=== PATIENT | male | born 1960 | race Caucasian/White ===

== ENCOUNTER 2022-02-01 07:43 | Outpatient (REF) | payer BC, SELFPAY ==
[2022-02-01 11:05] LABS: Hematocrit 38.2 % (42.0-52.0); Hemoglobin 12.4 g/dl (14.0-18.0); Mean Corpuscular HGB Conc 32.5 g/dl (31.0-36.0); Mean Corpuscular Hemoglobin 28.6 pg (27.0-33.0); Mean Corpuscular Volume 88.2 fL (80.0-98.0); Mean Platelet Volume 9.8 fL (9.4-12.4); Platelet Count 358 X10*3/uL (160-400); Red Blood Count 4.33 X10*6/uL (4.60-5.80); Red Cell Distribution Width 13.1 % (11.0-16.0); White Blood Count 9.8 X10*3/uL (4.8-10.8)
[2022-02-01 11:12] LABS: Estimated Average Glucose 134 mg/dL; Hemoglobin A1C 152.7002 umol/L; Hemoglobin A1c % 6.3 %
[2022-02-01 11:30] LABS: Alanine Aminotransferase 15 U/L (0-40); Albumin Level 4.1 g/dL (3.5-5.0); Alkaline Phosphatase 70 U/L (39-117); Anion Gap 13 (12-20); Aspartate Amino Transferase 19 U/L (5-37); Bilirubin Total 0.5 mg/dL (0.0-1.0); Blood Urea Nitrogen 13 mg/dL (9-16); Calcium 9.1 mg/dL (8.4-10.2); Carbon Dioxide 25 mmol/L (22-29); Chloride 105 mmol/L (96-108); Cholesterol 201 mg/dL; Estimated Glomerular Filt Rate > 60; Glucose Fasting 121 mg/dL (60-99); HDL Cholesterol 40 mg/dL; LDL Cholesterol Calculated 130 mg/dl; Potassium 4.5 mmol/L (3.3-5.1); Sodium 138 mmol/L (135-145); Total Protein 6.9 g/dL (6.5-8.0); Triglycerides 159 mg/dL
[2022-02-01 11:31] LABS: Creatinine Urine 85.62 mg/dL; Microalbumin Urine < 5.0 mg/L
== END 2022-02-01 07:44 | disposition home or self-care (01) ==
LOC: HO.HMGCLDS 07:43
PROVIDERS: PCP Internal Medicine; Visit Provider Internal Medicine
DX: E11.9 Type 2 diabetes mellitus without complications (principal); E78.5 Hyperlipidemia, unspecified
CPT/HCPCS: 36415; 80053; 80061; 82043; 83036; 85027

== ENCOUNTER 2022-02-10 14:16 | Outpatient (REF) | payer BC, SELFPAY ==
[2022-02-10 16:57] LABS: Rheumatoid Factor < 15.0 IU/mL (<15.0); Uric Acid 5.3 mg/dL (3.4-7.0)
[2022-02-12 04:29] LABS: Lyme Abs Screen <0.90 index
[2022-02-12 14:31] LABS: Anti Nuclear Antibody Screen NEGATIVE (NEGATIVE)
== END 2022-02-10 14:17 | disposition home or self-care (01) ==
LOC: HO.HMGCLDS 14:16
PROVIDERS: Visit Provider Internal Medicine
DX: M25.50 Pain in unspecified joint (principal); E78.5 Hyperlipidemia, unspecified; E11.9 Type 2 diabetes mellitus without complications
CPT/HCPCS: 36415; 84550; 86038; 86039; 86140; 86431; 86617; 86618

== ENCOUNTER 2022-05-10 07:59 | Outpatient (REF) | payer BC, SELFPAY ==
[2022-05-10 11:19] LABS: Basophils Absolute Auto 0.1 X10*3/uL (0.0-0.2); Basophils Percent Auto 1.3 % (0-2); Eosinophils Absolute Auto 0.2 X10*3/uL (0.0-0.4); Eosinophils Percent Auto 2.2 % (0-4); Hematocrit 41.6 % (42.0-52.0); Hemoglobin 13.5 g/dl (14.0-18.0); Imm Gran Abs Auto 0.02 X10*3/uL (0.00-0.03); Imm Gran Pct Auto 0.2 % (0.0-0.4); MANUAL DIFF FLAG SCAN; Mean Corpuscular HGB Conc 32.5 g/dl (31.0-36.0); Mean Corpuscular Hemoglobin 28.9 pg (27.0-33.0); Mean Corpuscular Volume 89.1 fL (80.0-98.0); Mean Platelet Volume 10.3 fL (9.4-12.4); Monocytes Absolute Auto 0.7 X10*3/uL (0.1-1.2); Monocytes Percent Auto 6.6 % (2-11); Neutrophils Absolute Auto 2.8 x10*3/uL (2.0-8.3); Neutrophils Percent Auto 26.7 % (45-73); Platelet Count 316 X10*3/uL (160-400); Red Blood Count 4.67 X10*6/uL (4.60-5.80); Red Cell Distribution Width 13.6 % (11.0-16.0); SCAN SMEAR FLAG 1; White Blood Count 10.5 X10*3/uL (4.8-10.8)
[2022-05-10 11:24] LABS: Lymphocytes Absolute Auto 6.6 X10*3/uL (1.2-4.9)
[2022-05-10 11:26] LABS: Alanine Aminotransferase 19 U/L (0-40); Albumin Level 4.5 g/dL (3.5-5.0); Alkaline Phosphatase 74 U/L (39-117); Anion Gap 14 (12-20); Aspartate Amino Transferase 20 U/L (5-37); Blood Urea Nitrogen 15 mg/dL (9-16); Calcium 9.7 mg/dL (8.4-10.2); Carbon Dioxide 26 mmol/L (22-29); Chloride 104 mmol/L (96-108); Cholesterol 176 mg/dL; Estimated Glomerular Filt Rate > 60; Glucose Fasting 106 mg/dL (60-99); HDL Cholesterol 44 mg/dL; LDL Cholesterol Calculated 110 mg/dl; Potassium 4.5 mmol/L (3.3-5.1); Sodium 139 mmol/L (135-145); Total Protein 7.4 g/dL (6.5-8.0); Triglycerides 112 mg/dL
[2022-05-10 11:31] LABS: Bilirubin Total 0.5 mg/dL (0.0-1.0)
[2022-05-10 11:39] LABS: Estimated Average Glucose 128 mg/dL; Hemoglobin A1C 152.3108 umol/L; Hemoglobin A1c % 6.1 %
[2022-05-10 11:48] LABS: SLIDE REVIEW VERIFIED
== END 2022-05-10 08:00 | disposition home or self-care (01) ==
LOC: HO.HMGCLDS 07:59
PROVIDERS: PCP Internal Medicine; Visit Provider Internal Medicine
DX: E11.9 Type 2 diabetes mellitus without complications (principal); E78.5 Hyperlipidemia, unspecified
CPT/HCPCS: 36415; 80053; 80061; 83036; 85025

== ENCOUNTER 2022-08-02 08:08 | Outpatient (REF) | payer BC, SELFPAY ==
[2022-08-02 11:04] LABS: Appearance Urine Clear; Color Urine Yellow; Glucose Urine UA >=1000 mg/dL (Negative); Leukocyte Esterase Urine Negative (Negative); Nitrite Urine Negative (Negative); UMIC TRIGGER UA YES; Urine Blood Negative (Negative); Urine Ketones Negative (Negative); Urine Protein Negative (Neg-Trace)
[2022-08-02 11:09] LABS: Bacteria Urine None Seen (None Seen); Hyaline Casts Urine 0-2 /LPF (0-2); RBC Urine 0-2 /HPF (0-2); Squamous Epithelial Cell Urine 0-2 /HPF (0-2); WBC Urine 0-5 /HPF (0-5)
[2022-08-02 11:20] LABS: Estimated Average Glucose 131 mg/dL; Hemoglobin A1C 148.6913 umol/L; Hemoglobin A1c % 6.2 %
[2022-08-02 11:27] LABS: Alanine Aminotransferase 15 U/L (0-40); Albumin Level 4.1 g/dL (3.5-5.0); Alkaline Phosphatase 70 U/L (39-117); Anion Gap 13 (12-20); Aspartate Amino Transferase 16 U/L (5-37); Bilirubin Total 0.6 mg/dL (0.0-1.0); Blood Urea Nitrogen 13 mg/dL (9-16); Calcium 9.4 mg/dL (8.4-10.2); Carbon Dioxide 26 mmol/L (22-29); Chloride 105 mmol/L (96-108); Cholesterol 172 mg/dL; Estimated Glomerular Filt Rate > 60; Glucose Fasting 115 mg/dL (60-99); HDL Cholesterol 43 mg/dL; LDL Cholesterol Calculated 111 mg/dl; Potassium 4.5 mmol/L (3.3-5.1); Sodium 139 mmol/L (135-145); Total Protein 6.9 g/dL (6.5-8.0); Triglycerides 93 mg/dL
== END 2022-08-02 08:09 | disposition home or self-care (01) ==
LOC: HO.HMGCLDS 08:08
PROVIDERS: PCP Internal Medicine; Visit Provider Internal Medicine
DX: E78.5 Hyperlipidemia, unspecified (principal); K21.9 Gastro-esophageal reflux disease without esophagitis; E11.9 Type 2 diabetes mellitus without complications
CPT/HCPCS: 36415; 80053; 80061; 81001; 83036

== ENCOUNTER 2022-12-06 07:30 | Outpatient (REF) | payer BC, SELFPAY ==
[2022-12-06 11:21] LABS: Alanine Aminotransferase 19 U/L (0-40); Albumin Level 4.4 g/dL (3.5-5.0); Alkaline Phosphatase 84 U/L (39-117); Anion Gap 14 (12-20); Aspartate Amino Transferase 18 U/L (5-37); Bilirubin Total 0.8 mg/dL (0.0-1.0); Blood Urea Nitrogen 17 mg/dL (9-16); Calcium 9.5 mg/dL (8.4-10.2); Carbon Dioxide 25 mmol/L (22-29); Chloride 106 mmol/L (96-108); Cholesterol 194 mg/dL; Estimated Glomerular Filt Rate > 60; Glucose Fasting 107 mg/dL (60-99); HDL Cholesterol 43 mg/dL; LDL Cholesterol Calculated 130 mg/dl; Rheumatoid Factor 22.9 IU/mL (<15.0); Sodium 140 mmol/L (135-145); Total Protein 7.2 g/dL (6.5-8.0); Triglycerides 108 mg/dL; Uric Acid 4.8 mg/dL (3.4-7.0)
[2022-12-06 11:28] LABS: Estimated Average Glucose 134 mg/dL; Hemoglobin A1c % 6.3 %
[2022-12-06 11:33] LABS: Creatinine Urine 101.82 mg/dL; Microalbumin Urine < 5.0 mg/L
[2022-12-06 11:51] LABS: Erythrocyte Sedimentation Rate 38 MM/HR (0-15)
[2022-12-08 21:58] LABS: Lyme Abs Screen <0.90 index
[2022-12-09 13:24] LABS: Anti Nuclear Antibody Screen NEGATIVE (NEGATIVE)
== END 2022-12-06 07:31 | disposition home or self-care (01) ==
LOC: HO.HMGCLDS 07:30
PROVIDERS: PCP Internal Medicine; Visit Provider Internal Medicine
DX: Z00.00 Encounter for general adult medical examination without abnormal findings (principal); E11.9 Type 2 diabetes mellitus without complications; E78.5 Hyperlipidemia, unspecified; K21.9 Gastro-esophageal reflux disease without esophagitis; M25.50 Pain in unspecified joint
CPT/HCPCS: 36415; 80053; 80061; 82043; 83036; 84550; 85652; 86038; 86039; 86431; 86617; 86618

== ENCOUNTER 2022-12-22 15:08 | Outpatient (REF) | payer BC, SELFPAY ==
--- NOTE | ~2022-12-22 | XR_ITS ---
EXAMINATION: XR CHEST CLINICAL INFORMATION: Cough COMPARISON: None available. TECHNIQUE: 2 views of the chest were obtained. FINDINGS: The cardiac and mediastinal contours are normal. There is a small 6 mm nodular density at the left lung apex overlying the left posterior third rib. The lungs are otherwise clear. No pleural effusion or pneumothorax. Mild degenerative changes of the spine. XR/XR chest 2V IMPRESSION: 6 mm nodular density at the left lung apex, question pulmonary versus pleural-based. Comparison with old outside chest x-rays if available is recommended. This could be further evaluated with apical lordotic view or chest CT. Findings will be communicated by the [place] work flow crop picker.
== END 2022-12-22 15:09 | disposition home or self-care (01) ==
LOC: HO.HMGCX 15:08
PROVIDERS: PCP Internal Medicine; Visit Provider Internal Medicine
DX: R05.9 Cough, unspecified (principal)
CPT/HCPCS: 71046

== ENCOUNTER 2023-02-28 07:35 | Outpatient (REF) | payer BC, SELFPAY ==
[2023-02-28 11:18] LABS: Basophils Absolute Auto 0.1 X10*3/uL (0.0-0.2); Basophils Percent Auto 1.4 % (0-2); Eosinophils Absolute Auto 0.3 X10*3/uL (0.0-0.4); Eosinophils Percent Auto 2.5 % (0-4); Hematocrit 38.2 % (42.0-52.0); Hemoglobin 12.4 g/dl (14.0-18.0); Imm Gran Abs Auto 0.02 X10*3/uL (0.00-0.03); Imm Gran Pct Auto 0.2 % (0.0-0.4); Lymphocytes Percent Auto 63.6 % (20-40); MANUAL DIFF FLAG SCAN; Mean Corpuscular HGB Conc 32.5 g/dl (31.0-36.0); Mean Corpuscular Hemoglobin 28.8 pg (27.0-33.0); Mean Corpuscular Volume 88.8 fL (80.0-98.0); Monocytes Absolute Auto 0.7 X10*3/uL (0.1-1.2); Monocytes Percent Auto 6.8 % (2-11); Neutrophils Absolute Auto 2.5 x10*3/uL (2.0-8.3); Neutrophils Percent Auto 25.5 % (45-73); Platelet Count 356 X10*3/uL (160-400); Red Cell Distribution Width 13.5 % (11.0-16.0); SCAN SMEAR FLAG 1; White Blood Count 9.9 X10*3/uL (4.8-10.8)
[2023-02-28 11:19] LABS: Lymphocytes Absolute Auto 6.3 X10*3/uL (1.2-4.9)
[2023-02-28 11:29] LABS: Alanine Aminotransferase 16 U/L (0-40); Alkaline Phosphatase 70 U/L (39-117); Anion Gap 13 (12-20); Aspartate Amino Transferase 21 U/L (5-37); Bilirubin Total 0.6 mg/dL (0.0-1.0); Blood Urea Nitrogen 12 mg/dL (9-16); Carbon Dioxide 23 mmol/L (22-29); Chloride 108 mmol/L (96-108); Cholesterol 201 mg/dL; Estimated Glomerular Filt Rate > 60; Glucose Fasting 118 mg/dL (60-99); HDL Cholesterol 44 mg/dL; LDL Cholesterol Calculated 131 mg/dl; Potassium 4.1 mmol/L (3.3-5.1); Sodium 140 mmol/L (135-145); Total Protein 7.1 g/dL (6.5-8.0); Triglycerides 132 mg/dL
[2023-02-28 11:32] LABS: Estimated Average Glucose 128 mg/dL; Hemoglobin A1c % 6.1 %
[2023-02-28 11:47] LABS: Microalbumin Urine < 5.0 mg/L
[2023-02-28 11:53] LABS: SLIDE REVIEW VERIFIED
== END 2023-02-28 07:36 | disposition home or self-care (01) ==
LOC: HO.HMGCLDS 07:35
PROVIDERS: PCP Internal Medicine; Visit Provider Internal Medicine
DX: R05.9 Cough, unspecified (principal); E11.9 Type 2 diabetes mellitus without complications; E78.5 Hyperlipidemia, unspecified
CPT/HCPCS: 36415; 80053; 80061; 82043; 83036; 85025

== ENCOUNTER 2023-03-05 13:25 | Outpatient (AMB) | payer BC, SELFPAY ==
--- NOTE | 2023-03-05 13:30 | MHC.PC.OV ---
Vital Signs 03/05/23 13:31 Height 5 ft 10 in Weight 196 lb BMI 28.1 BP 136/78 Blood Pressure Location Lt brachial Position Sitting Pulse 96 Pulse Source Pulse Oximeter Pulse Oximetry (%) 95 Oxygen Delivery Method Room Air Intake Visit Reasons: [facility] cellulitis Intake Note: Pt is here today for a Hospital fowllo up visit. Allergies empagliflozin [From Jardiance] Allergy (Verified 03/05/23 13:33) chest pain Tobacco use date assessed: 03/05/23 Dental Screening Dental Screen Date: 03/05/23 Did you have a dental visit in the last 12 months?: Yes Did you have a dental problem in the last 6 months where you did not have access to dental care?: No Was dental information given to patient?: Patient has dentist HPI [facility] cellulitis HPI Details Pt presents for f/u of, DM 2, hyperlipid, stable on meds. [facility] Medical History Annual physical exam Cancer of left adrenal gland GERD (gastroesophageal reflux disease) Hx of renal cell carcinoma Hyperlipidemia Rectal bleeding Rosacea Splenic artery aneurysm Type 2 diabetes mellitus Surgical History H/O colonoscopy No pertinent past surgical history Family History Father No problems noted. Mother No problems noted. Social History Housing: House Alcohol intake: current Alcohol intake frequency: does not drink Patient Tobacco Use Status: Never used Tobacco e-Cigarette/Vaping Use: Never Used Current occupational status: employed Cognitive needs: No Hearing needs: No Vision needs: No Questionnaire Thrive Questionnaire Date Thrive assessed: 03/05/23 I am a: Patient What is your living situation today?: I have a steady place to live Within the past 12 months, did the food you bought not last and you didn't have the money to get more?: Never true Within the past 12 months, did you worry whether your food would run out before you got money to buy more?: Never true Do you have trouble paying for medicines?: No Do you have trouble getting transportation to medical appointments?: No Do you have trouble paying your heating and electricity bill?: No Do you have trouble taking care of your child, family member or friend?: No Do you have trouble with day-to-day activities such as bathing, preparing meals, shopping, managing finances, etc.?: No Are you currently unemployed and looking for a job?: No Are you interested in more education?: No Please select the resources that you would like help with: None Currently or been in a relationship where the following occur: no concerns reported AUDIT C Alcohol Use Questionnaire (AUDIT-C) 1. How often do you have a drink containing alcohol?: Never 3. How often do you have six or more drinks on one occasion?: Never Total Score: 0 RADHA-7 AMB Questionnaire RADHA-7 Date RADHA - 7 assessed: 03/05/23 Feeling nervous, anxious, or on edge: 0 = Not at all Not being able to stop or control worryin = Not at all Worrying too much about different things: 0 = Not at all Trouble relaxin = Not at all Being so restless that it is hard to sit still: 0 = Not at all Becoming easily annoyed or irritable: 0 = Not at all Feeling afraid as if something awful might happen: 0 = Not at all Total RADHA-7 score (0-4 normal; 5-9 mild; 10-14 moderate; 15-21 severe): 0 Source: Developed by Drs. Hema Barclay, Ayesha Royal, Mert Roto and colleagues, with an educational ashok from [employer]. Review of Systems Const All systems reviewed & are unremarkable except as noted in HPI and below Reports no additional complaints Eyes Reports no additional complaints ENT Reports no additional complaints Card Reports no additional complaints Resp Reports no additional complaints GI Reports no additional complaints Reports no additional complaints Physical exam (Primary Care) Vital Signs: Last Vital Signs Pulse 96 03/05/23 13:31 BP 136/78 03/05/23 13:31 Pulse Ox 95 03/05/23 13:31 Oxygen Delivery Method Room Air 03/05/23 13:31 BMI result Body Mass Index 28.1 Tobacco/Smoking Status: Tobacco use Status Tobacco use date assessed 03/05/23 03/05/23 13:35 Patient Tobacco Use Status Never used Tobacco 03/05/23 13:31 e-Cigarette/Vaping Use Never Used 03/05/23 13:31 Thrive Assessment: Date of Thrive Assessment Date Thrive assessed 03/05/23 03/05/23 13:37 Currently or been in a relationship where the following occur: no concerns reported Const General: no acute distress HENMT Ears: hearing grossly normal bilaterally Mouth: Normal oral and palatal mucosa present Eyes General: appearance normal, both eyes and all related structures Neck Neck: Yes no lymphadenopathy and Yes supple Resp Effort & Inspection: normal respiratory effort Auscultation: clear to auscultation bilaterally Cardio Rhythm: regular rhythm Heart sounds: S1 normal heart sound present and S2 normal heart sound present GI Inspection: Yes normal to inspection Palpation (GI): Soft to palpation Percussion: Yes normal to percussion Auscultation: normal bowel sounds Assessment and Plan Assessment & Plan (1) Hx of renal cell carcinoma: Comment: s/p L partial nephrectomy 2013, recurrence 2020 Code(s): Z85.528 - Personal history of other malignant neoplasm of kidney Plan: Follow-up with [facility] every [address] of the abdomen pelvis (2) Hyperlipidemia: Code(s): E78.5 - Hyperlipidemia, unspecified Plan: Continue statin and low-cholesterol diet (3) Type 2 diabetes mellitus: Code(s): E11.9 - Type 2 diabetes mellitus without complications Plan: A1c is down to 6.1 (4) Lymphocytosis: Code(s): D72.820 - Lymphocytosis (symptomatic) Plan: Monitor CBC every 6 months Orders: Orders Comprehensive [place]. Panel Fast 6 Months E11.9 - Type 2 diabetes mellitus without complications, E78.5 - Hyperlipidemia, unspecified, Z85.528 - Personal history of other malignant neoplasm of kidney Hemoglobin A1c 6 Months C74.92 - Malignant neoplasm of unspecified part of left adrenal gland, D72.820 - Lymphocytosis (symptomatic), E11.9 - Type 2 diabetes mellitus without complications, E78.5 - Hyperlipidemia, unspecified Lipid Panel 6 Months C74.92 - Malignant neoplasm of unspecified part of left adrenal gland, D72.820 - Lymphocytosis (symptomatic), E11.9 - Type 2 diabetes mellitus without complications, E78.5 - Hyperlipidemia, unspecified PSA,Total (Free>4and<10) 6 Months C74.92 - Malignant neoplasm of unspecified part of left adrenal gland, D72.820 - Lymphocytosis (symptomatic), E11.9 - Type 2 diabetes mellitus without complications, E78.5 - Hyperlipidemia, unspecified Microalbumin, Random (w Creat) 6 Months C74.92 - Malignant neoplasm of unspecified part of left adrenal gland, D72.820 - Lymphocytosis (symptomatic), E11.9 - Type 2 diabetes mellitus without complications, E78.5 - Hyperlipidemia, unspecified Complete Blood Count Man Dif 6 Months C74.92 - Malignant neoplasm of unspecified part of left adrenal gland, D72.820 - Lymphocytosis (symptomatic), E11.9 - Type 2 diabetes mellitus without complications, E78.5 - Hyperlipidemia, unspecified Coding Level of Care Code Est Pt Level 4 (56385) Diagnoses Hx of renal cell carcinoma Z85.528 Hyperlipidemia E78.5 Type 2 diabetes mellitus E11.9 Lymphocytosis D72.820
[2023-03-05 13:31] VITALS: BP 136/78; PULSE 96; O2SAT 95; BMI 28.1
== END 2023-03-05 14:00 | disposition home or self-care (01) ==
PROVIDERS: PCP Internal Medicine; Visit Provider Internal Medicine
DX: Z85.528 Personal history of other malignant neoplasm of kidney (principal); E78.5 Hyperlipidemia, unspecified; E11.9 Type 2 diabetes mellitus without complications; D72.820 Lymphocytosis (symptomatic)
CPT/HCPCS: 99214

== ENCOUNTER 2023-08-29 08:39 | Outpatient (REF) | payer BC, SELFPAY ==
[2023-08-29 11:11] LABS: Baso%MD 1.3 %; Eos%MD 2.3 %; Hematocrit 40.3 % (42.0-52.0); Hemoglobin 13.3 g/dl (14.0-18.0); IG%MD 0.2 %; Lymph%MD 51.5 %; Mean Corpuscular Hemoglobin 29.7 pg (27.0-33.0); Mono%MD 7.8 %; Neut%MD 36.9 %; Platelet Count 298 X10*3/uL (160-400); Red Blood Count 4.48 X10*6/uL (4.60-5.80); Red Cell Distribution Width 13.2 % (11.0-16.0); White Blood Count 11.2 X10*3/uL (4.8-10.8)
[2023-08-29 11:23] LABS: Estimated Average Glucose 128 mg/dL; Hemoglobin A1c % 6.1 % (<6.0)
[2023-08-29 11:26] LABS: Alanine Aminotransferase 24 U/L (0-40); Albumin Level 4.2 g/dL (3.5-5.0); Alkaline Phosphatase 71 U/L (39-117); Anion Gap 12 (12-20); Aspartate Amino Transferase 24 U/L (5-37); Bilirubin Total 0.5 mg/dL (0.0-1.0); Blood Urea Nitrogen 10 mg/dL (9-16); Carbon Dioxide 27 mmol/L (22-29); Chloride 106 mmol/L (96-108); Cholesterol 169 mg/dL (<200); Estimated Glomerular Filt Rate > 60; Glucose Fasting 102 mg/dL (60-99); HDL Cholesterol 45 mg/dL (>40); LDL Cholesterol Calculated 98 mg/dL (<100); Potassium 4.6 mmol/L (3.3-5.1); Sodium 140 mmol/L (135-145); Total Protein 7.4 g/dL (6.5-8.0); Triglycerides 133 mg/dL (<150)
[2023-08-29 11:50] LABS: Atypical Lymph Absolute Manual 0.2 x10*3/uL; Atypical Lymphs Percent Manual 2 % (0-6); Lymphocytes Absolute Manual 6.4 X10*3/uL (1.2-4.9); Lymphocytes Percent Manual 57 % (20-40); Monocytes Absolute Manual 0.8 X10*3/uL (0.1-1.2); Monocytes Percent Manual 7 % (2-11); Neutrophils Percent Manual 34 % (45-73)
[2023-08-29 11:52] LABS: Platelet Estimate NORMAL (NORMAL); Platelet Morphology Comment NORMAL; RBC Morphology NORMAL
[2023-08-29 12:00] LABS: Band Neutrophils Percent 0 % (3-5); Neutrophils Absolute Manual 3.8 X10*3/uL (2.0-8.3)
[2023-08-29 12:07] LABS: Creatinine Urine 65.11 mg/dL; Microalbumin Urine < 5.0 mg/L
== END 2023-08-29 08:40 | disposition home or self-care (01) ==
LOC: HO.HMGCLDS 08:39
PROVIDERS: PCP Internal Medicine; Visit Provider Internal Medicine
DX: Z12.5 Encounter for screening for malignant neoplasm of prostate (principal); C74.92 Malignant neoplasm of unspecified part of left adrenal gland; D72.820 Lymphocytosis (symptomatic); E11.9 Type 2 diabetes mellitus without complications; E78.5 Hyperlipidemia, unspecified; Z85.528 Personal history of other malignant neoplasm of kidney
CPT/HCPCS: 36415; 80053; 80061; 82043; 82570; 83036; 84153; 85007; 85027

== ENCOUNTER 2023-09-02 11:24 | Outpatient (AMB) | payer BC, SELFPAY ==
[2023-09-02 11:25] VITALS: BP 124/76; PULSE 88; O2SAT 98; BMI 27.5
--- NOTE | 2023-09-02 11:25 | MHC.PC.OV ---
Vital Signs 09/02/23 11:25 Height 5 ft 10 in Weight 192 lb BMI 27.5 BP 124/76 Blood Pressure Location Lt brachial Position Sitting Pulse 88 Pulse Source Pulse Oximeter Pulse Oximetry (%) 98 Oxygen Delivery Method Room Air Intake Visit Reasons: PE Intake Note: Pt is here today for PE. Allergies empagliflozin [From Jardiance] Allergy (Verified 09/02/23 11:28) chest pain Medication List - Last Reconciled 09/02/23 by Flower Bliss MD albuterol sulfate 90 mcg/actuation 0 mcg inhalation metformin 1,000 mg PO BID rosuvastatin 20 mg PO DAILY Tobacco use date assessed: 09/02/23 Fall risk assessment: No Falls in past year Last assessed Fall Risk: 09/02/23 Dental Screening Dental Screen Date: 09/02/23 Did you have a dental visit in the last 12 months?: Yes Did you have a dental problem in the last 6 months where you did not have access to dental care?: No Was dental information given to patient?: Patient has dentist HPI PE HPI Details Pt presents for PE. PFS Medical History (Updated 09/02/23 @ 12:01 by Flower Bliss MD) Splenic artery aneurysm Hx of renal cell carcinoma Annual physical exam GERD (gastroesophageal reflux disease) Rectal bleeding Rosacea Hyperlipidemia Type 2 diabetes mellitus Surgical History H/O colonoscopy No pertinent past surgical history Family History Father No problems noted. Mother No problems noted. Social History Housing: House Alcohol intake: current Alcohol intake frequency: does not drink Patient Tobacco Use Status: Never used Tobacco e-Cigarette/Vaping Use: Never Used Current occupational status: employed Cognitive needs: No Hearing needs: No Vision needs: No Questionnaire PHQ-9 Over the last 2 weeks, how often have you been bothered by any of the following problems? 1. Little interest or pleasure in doing things: not at all 2. Feeling down, depressed, or hopeless: not at all 3. Trouble falling or staying asleep, or sleeping too much: not at all 4. Feeling tired or having little energy: several days 5. Poor appetite or overeating: not at all 6. Feeling bad about yourself - or that you are a failure or have let yourself or your family down: not at all 7. Trouble concentrating on things, such as reading the newspaper or watching television: not at all 8. Moving or speaking so slowly that other people could have noticed. Or the opposite - being so fidgety or restless that you have been moving around a lot more than usual: not at all 9. Thoughts that you would be better off or of hurting yourself in some way: not at all Total score: 1 Depression Screening Interpretation: Negative Depression Screening Done: Yes Source: Developed by Drs. Hema Barclay, Ayesha Royal, Mert Root and colleagues, with an educational ashok from [employer]. Thrive Questionnaire Date Thrive assessed: 09/02/23 I am a: Patient What is your living situation today?: I have a steady place to live Within the past 12 months, did the food you bought not last and you didn't have the money to get more?: Never true Within the past 12 months, did you worry whether your food would run out before you got money to buy more?: Never true Do you have trouble paying for medicines?: No Do you have trouble getting transportation to medical appointments?: No Do you have trouble paying your heating and electricity bill?: No Do you have trouble taking care of your child, family member or friend?: No Do you have trouble with day-to-day activities such as bathing, preparing meals, shopping, managing finances, etc.?: No Are you currently unemployed and looking for a job?: No Are you interested in more education?: No Please select the resources that you would like help with: None AUDIT C Alcohol Use Questionnaire (AUDIT-C) 1. How often do you have a drink containing alcohol?: Never 3. How often do you have six or more drinks on one occasion?: Never Total Score: 0 RADHA-7 AMB Questionnaire RADHA-7 Date RADHA - 7 assessed: 09/02/23 Feeling nervous, anxious, or on edge: 0 = Not at all Not being able to stop or control worryin = Not at all Worrying too much about different things: 0 = Not at all Trouble relaxin = Not at all Being so restless that it is hard to sit still: 0 = Not at all Becoming easily annoyed or irritable: 0 = Not at all Feeling afraid as if something awful might happen: 0 = Not at all Total RADHA-7 score (0-4 normal; 5-9 mild; 10-14 moderate; 15-21 severe): 0 Source: Developed by Drs. Hema Barclay, Ayesha Royal, Mert Root and colleagues, with an educational ashok from [employer]. Review of Systems Const All systems reviewed & are unremarkable except as noted in HPI and below Reports no additional complaints Eyes Reports no additional complaints ENT Reports no additional complaints Card Reports no additional complaints Resp Reports no additional complaints GI Reports no additional complaints Reports no additional complaints Skin/Breast Reports system reviewed and no additional complaints, except as documented Physical exam (Primary Care) Vital Signs: Last Vital Signs Pulse 88 09/02/23 11:25 BP 124/76 09/02/23 11:25 Pulse Ox 98 09/02/23 11:25 Oxygen Delivery Method Room Air 09/02/23 11:25 BMI result Body Mass Index 27.5 Tobacco/Smoking Status: Tobacco use Status Tobacco use date assessed 09/02/23 09/02/23 11:31 Patient Tobacco Use Status Never used Tobacco 09/02/23 11:31 e-Cigarette/Vaping Use Never Used 09/02/23 11:25 PHQ-9: PHQ-9 Score PHQ-9: Total score 1 09/02/23 11:31 Depression Screening Interpretation: Negative Thrive Assessment: Date of Thrive Assessment Date Thrive assessed 09/02/23 09/02/23 11:31 Const General: no acute distress HENMT Head: Yes normal to inspection Ears: hearing grossly normal bilaterally Face and sinus: Yes normal facial exam Mouth: Normal oral and palatal mucosa present Throat: Yes posterior oropharynx normal Eyes General: appearance normal, both eyes and all related structures Neck Neck: Yes no lymphadenopathy and Yes supple Resp Effort & Inspection: normal respiratory effort Auscultation: clear to auscultation bilaterally Cardio Rhythm: regular rhythm Heart sounds: S1 normal heart sound present and S2 normal heart sound present GI Inspection: Yes normal to inspection Palpation (GI): Soft to palpation Percussion: Yes normal to percussion Auscultation: normal bowel sounds Assessment and Plan Assessment & Plan (1) Hyperlipidemia: Code(s): E78.5 - Hyperlipidemia, unspecified Plan: Continue statin (2) Type 2 diabetes mellitus: Code(s): E11.9 - Type 2 diabetes mellitus without complications Plan: A1c is 6.1, ADA diet increase physical activity discussed with the patient continue metformin return in 6 months (3) Splenic artery aneurysm: Comment: left on CT, monitored with [facility] Code(s): I72.8 - Aneurysm of other specified arteries (4) Hx of renal cell carcinoma: Comment: s/p L partial nephrectomy 2013, recurrence 2020, f/u [facility] Code(s): Z85.528 - Personal history of other malignant neoplasm of kidney Plan: Follow-up with oncology at [facility] (5) Annual physical exam: Code(s): Z00.00 - Encounter for general adult medical examination without abnormal findings Plan: Well-balanced diet regular physical activity discussed with the patient. He is up-to-date with colonoscopy Orders: Orders Hemoglobin A1c 6 Months E11.9 - Type 2 diabetes mellitus without complications, E78.5 - Hyperlipidemia, unspecified, I72.8 - Aneurysm of other specified arteries, Z00.00 - Encounter for general adult medical examination without abnormal findings, Z85.528 - Personal history of other malignant neoplasm of kidney Microalbumin, Random (w Creat) 6 Months E11.9 - Type 2 diabetes mellitus without complications, E78.5 - Hyperlipidemia, unspecified, I72.8 - Aneurysm of other specified arteries, Z00.00 - Encounter for general adult medical examination without abnormal findings, Z85.528 - Personal history of other malignant neoplasm of kidney Comprehensive [place]. Panel Fast 6 Months E11.9 - Type 2 diabetes mellitus without complications, E78.5 - Hyperlipidemia, unspecified, I72.8 - Aneurysm of other specified arteries, Z00.00 - Encounter for general adult medical examination without abnormal findings, Z85.528 - Personal history of other malignant neoplasm of kidney Complete Blood Count Auto Diff 6 Months E11.9 - Type 2 diabetes mellitus without complications, E78.5 - Hyperlipidemia, unspecified, I72.8 - Aneurysm of other specified arteries, Z00.00 - Encounter for general adult medical examination without abnormal findings, Z85.528 - Personal history of other malignant neoplasm of kidney IRON PROFILE 6 Months E11.9 - Type 2 diabetes mellitus without complications, E78.5 - Hyperlipidemia, unspecified, I72.8 - Aneurysm of other specified arteries, Z00.00 - Encounter for general adult medical examination without abnormal findings, Z85.528 - Personal history of other malignant neoplasm of kidney Lipid Panel 6 Months E11.9 - Type 2 diabetes mellitus without complications, E78.5 - Hyperlipidemia, unspecified, I72.8 - Aneurysm of other specified arteries, Z00.00 - Encounter for general adult medical examination without abnormal findings, Z85.528 - Personal history of other malignant neoplasm of kidney Coding Level of Care Code Est Pt Prev Care >65y(51306) Diagnoses Hyperlipidemia E78.5 Type 2 diabetes mellitus E11.9 Splenic artery aneurysm I72.8 Hx of renal cell carcinoma Z85.528 Annual physical exam Z00.00
== END 2023-09-02 11:55 | disposition home or self-care (01) ==
PROVIDERS: PCP Internal Medicine; Visit Provider Internal Medicine
DX: E78.5 Hyperlipidemia, unspecified (principal); E11.9 Type 2 diabetes mellitus without complications; I72.8 Aneurysm of other specified arteries; Z85.528 Personal history of other malignant neoplasm of kidney; Z00.00 Encounter for general adult medical examination without abnormal findings
CPT/HCPCS: 99397

== ENCOUNTER 2024-02-11 07:14 | Outpatient (REF) | payer BC, SELFPAY ==
[2024-02-11 11:47] LABS: Basophils Absolute Auto 0.2 X10*3/uL (0.0-0.2); Basophils Percent Auto 1.5 % (0-2); Eosinophils Absolute Auto 0.4 X10*3/uL (0.0-0.4); Eosinophils Percent Auto 3.6 % (0-4); Hematocrit 39.1 % (42.0-52.0); Hemoglobin 12.9 g/dl (14.0-18.0); Imm Gran Abs Auto 0.02 X10*3/uL (0.00-0.03); Imm Gran Pct Auto 0.2 % (0.0-0.4); Lymphocytes Absolute Auto 6.8 X10*3/uL (1.2-4.9); Lymphocytes Percent Auto 64.1 % (20-40); MANUAL DIFF FLAG SCAN; Mean Corpuscular Hemoglobin 29.3 pg (27.0-33.0); Mean Corpuscular Volume 88.7 fL (80.0-98.0); Mean Platelet Volume 9.8 fL (9.4-12.4); Monocytes Absolute Auto 0.6 X10*3/uL (0.1-1.2); Monocytes Percent Auto 6.1 % (2-11); Neutrophils Absolute Auto 2.6 x10*3/uL (2.0-8.3); Neutrophils Percent Auto 24.5 % (45-73); Platelet Count 313 X10*3/uL (160-400); Red Blood Count 4.41 X10*6/uL (4.60-5.80); Red Cell Distribution Width 13.2 % (11.0-16.0); SCAN SMEAR FLAG 1; White Blood Count 10.5 X10*3/uL (4.8-10.8)
[2024-02-11 11:55] LABS: Estimated Average Glucose 134 mg/dL; Hemoglobin A1c % 6.3 % (<6.0)
[2024-02-11 12:11] LABS: SLIDE REVIEW VERIFIED
[2024-02-11 12:15] LABS: Alanine Aminotransferase 29 U/L (0-40); Albumin Level 4.2 g/dL (3.5-5.0); Alkaline Phosphatase 61 U/L (39-117); Anion Gap 14 (12-20); Aspartate Amino Transferase 26 U/L (5-37); Bilirubin Total 0.5 mg/dL (0.0-1.0); Blood Urea Nitrogen 16 mg/dL (9-16); Calcium 9.6 mg/dL (8.4-10.2); Carbon Dioxide 24 mmol/L (22-29); Chloride 105 mmol/L (96-108); Cholesterol 175 mg/dL (<200); Estimated Glomerular Filt Rate > 60; Glucose Fasting 109 mg/dL (60-99); HDL Cholesterol 41 mg/dL (>40); Iron 125 mcg/dL (45-160); LDL Cholesterol Calculated 84 mg/dL (<100); Percent Iron Saturation 39 % (15-50); Potassium 4.1 mmol/L (3.3-5.1); Sodium 139 mmol/L (135-145); Total Iron Binding Capacity 319 mcg/dL (228-428); Total Protein 7.3 g/dL (6.5-8.0); Triglycerides 250 mg/dL (<150); Unsaturated Iron Binding 194 ug/dL
[2024-02-11 12:31] LABS: Creatinine Urine 80.36 mg/dL; Microalbumin Urine < 5.0 mg/L
== END 2024-02-11 07:15 | disposition home or self-care (01) ==
LOC: HO.HMGCLDS 07:14
PROVIDERS: PCP Internal Medicine; Visit Provider Internal Medicine
DX: Z00.00 Encounter for general adult medical examination without abnormal findings (principal); E78.5 Hyperlipidemia, unspecified; E11.9 Type 2 diabetes mellitus without complications; I72.8 Aneurysm of other specified arteries; Z85.528 Personal history of other malignant neoplasm of kidney
CPT/HCPCS: 36415; 80053; 80061; 82043; 82570; 83036; 83540; 85025

== ENCOUNTER 2024-03-03 13:54 | Outpatient (AMB) | payer BC, SELFPAY ==
--- NOTE | 2024-03-03 13:56 | MHC.PC.OV ---
Vital Signs 03/03/24 13:57 Height 5 ft 10 in Weight 192 lb BMI 27.5 BP 126/82 Blood Pressure Location Lt brachial Position Sitting Pulse 82 Pulse Source Pulse Oximeter Pulse Oximetry (%) 98 Oxygen Delivery Method Room Air Intake Visit Reasons: 6 month follow up Intake Note: Pt is here today for 6 months follow up visit. Allergies empagliflozin [From Jardiance] Allergy (Verified 03/03/24 13:59) chest pain Medication List - Last Reconciled 03/03/24 by Flower Bliss MD albuterol sulfate 90 mcg/actuation 0 mcg inhalation meloxicam 15 mg PO DAILY metformin 1,000 mg PO BID rosuvastatin 20 mg PO DAILY Tobacco use date assessed: 03/03/24 Fall risk assessment: No Falls in past year Last assessed Fall Risk: 03/03/24 Dental Screening Dental Screen Date: 03/03/24 Did you have a dental visit in the last 12 months?: Yes Did you have a dental problem in the last 6 months where you did not have access to dental care?: No Was dental information given to patient?: Patient has dentist HPI 6 month follow up HPI Details Patient presents for the follow-up on hyperlipidemia type 2 diabetes controlled on current medications. He complains of intermittent PIP joint swelling and pain of both hands but not symmetrical lasting for few days. He denies morning stiffness rash fever chills weight loss. I he tried ibuprofen with some relief. [facility] Medical History (Updated 09/02/23 @ 12:01 by Flower Bliss MD) Splenic artery aneurysm Hx of renal cell carcinoma Annual physical exam GERD (gastroesophageal reflux disease) Rectal bleeding Rosacea Hyperlipidemia Type 2 diabetes mellitus Surgical History H/O colonoscopy No pertinent past surgical history Family History Father No problems noted. Mother No problems noted. Social History Housing: House Alcohol intake: current Alcohol intake frequency: does not drink Patient Tobacco Use Status: Never used Tobacco e-Cigarette/Vaping Use: Never Used service: No Current occupational status: employed Cognitive needs: No Hearing needs: No Vision needs: No Questionnaire PHQ-9 Over the last 2 weeks, how often have you been bothered by any of the following problems? 1. Little interest or pleasure in doing things: not at all 2. Feeling down, depressed, or hopeless: not at all 3. Trouble falling or staying asleep, or sleeping too much: not at all 4. Feeling tired or having little energy: not at all 5. Poor appetite or overeating: not at all 6. Feeling bad about yourself - or that you are a failure or have let yourself or your family down: not at all 7. Trouble concentrating on things, such as reading the newspaper or watching television: not at all 8. Moving or speaking so slowly that other people could have noticed. Or the opposite - being so fidgety or restless that you have been moving around a lot more than usual: not at all 9. Thoughts that you would be better off or of hurting yourself in some way: not at all Total score: 0 Depression Screening Interpretation: Negative Depression Screening Done: Yes Source: Developed by Drs. Hema Barclay, Ayesha Royal, Mert Root and colleagues, with an educational ashok from [employer]. Thrive Questionnaire Date Thrive assessed: 03/03/24 I am a: Patient What is your living situation today?: I choose not to answer this question Within the past 12 months, did the food you bought not last and you didn't have the money to get more?: I choose not to answer this question Within the past 12 months, did you worry whether your food would run out before you got money to buy more?: I choose not to answer this question Do you have trouble paying for medicines?: I choose not to answer this question Do you have trouble getting transportation to medical appointments?: I choose not to answer this question Do you have trouble paying your heating and electricity bill?: I choose not to answer this question Do you have trouble taking care of your child, family member or friend?: I choose not to answer this question Do you have trouble with day-to-day activities such as bathing, preparing meals, shopping, managing finances, etc.?: I choose not to answer this question Are you currently unemployed and looking for a job?: I choose not to answer this question Are you interested in more education?: I choose not to answer this question Please select the resources that you would like help with: Housing/Correction Currently or been in a relationship where the following occur: I choose not to answer THRIVE Score: 0 AUDIT C Alcohol Use Questionnaire (AUDIT-C) 1. How often do you have a drink containing alcohol?: Never 3. How often do you have six or more drinks on one occasion?: Never Total Score: 0 RADHA-7 AMB Questionnaire RADHA-7 Date RADHA - 7 assessed: 03/03/24 Feeling nervous, anxious, or on edge: 0 = Not at all Not being able to stop or control worryin = Not at all Worrying too much about different things: 0 = Not at all Trouble relaxin = Not at all Being so restless that it is hard to sit still: 0 = Not at all Becoming easily annoyed or irritable: 0 = Not at all Feeling afraid as if something awful might happen: 0 = Not at all Total RADHA-7 score (0-4 normal; 5-9 mild; 10-14 moderate; 15-21 severe): 0 Source: Developed by Drs. Hema Barclay, Ayesha Royal, Mert Root and colleagues, with an educational ashok from [employer]. Review of Systems Const All systems reviewed & are unremarkable except as noted in HPI and below Eyes Reports no additional complaints ENT Reports no additional complaints Card Reports no additional complaints Resp Reports no additional complaints GI Reports no additional complaints Physical exam (Primary Care) Vital Signs: Last Vital Signs Pulse 82 03/03/24 13:57 BP 126/82 03/03/24 13:57 Pulse Ox 98 03/03/24 13:57 Oxygen Delivery Method Room Air 03/03/24 13:57 BMI result Body Mass Index 27.5 Tobacco/Smoking Status: Tobacco use Status Tobacco use date assessed 03/03/24 03/03/24 14:02 Patient Tobacco Use Status Never used Tobacco 03/03/24 14:02 e-Cigarette/Vaping Use Never Used 03/03/24 14:02 PHQ-9: PHQ-9 Score PHQ-9: Total score 0 03/03/24 14:02 Depression Screening Interpretation: Negative Thrive Assessment: Date of Thrive Assessment Date Thrive assessed 07/18/24 07/18/24 14:02 Currently or been in a relationship where the following occur: I choose not to answer Const General: no acute distress HENMT Face and sinus: Yes normal facial exam Mouth: Normal oral and palatal mucosa present Neck Neck: Yes supple Resp Effort & Inspection: normal respiratory effort Auscultation: clear to auscultation bilaterally Cardio Rhythm: regular rhythm Heart sounds: S1 normal heart sound present and S2 normal heart sound present GI Inspection: Yes normal to inspection Palpation (GI): Soft to palpation Percussion: Yes normal to percussion Auscultation: normal bowel sounds Extrem Other: Right hand 3rd PIP and left hand 2nd and 3rd PIP joint erythema tenderness and decreased range of motion Assessment and Plan Assessment & Plan (1) Arthralgia: Code(s): M25.50 - Pain in unspecified joint Plan: Obtain arthritis panel, check x-rays of both hands, meloxicam 15 mg daily for 10 days is prescribed, if symptoms persist patient will be referred to Rheumatology (2) Type 2 diabetes mellitus: Code(s): E11.9 - Type 2 diabetes mellitus without complications Plan: A1c is 6.3, ADA diet increase exercise weight loss discussed with the patient continue metformin return in 6 months with a fasting labs if (3) Hyperlipidemia: Code(s): E78.5 - Hyperlipidemia, unspecified Plan: Continue Crestor Orders: Orders Rheumatoid Factor Today E11.9 - Type 2 diabetes mellitus without complications, M25.50 - Pain in unspecified joint Erythrocyte Sedimentation Rate Today E11.9 - Type 2 diabetes mellitus without complications, M25.50 - Pain in unspecified joint C Reactive Protein Today E11.9 - Type 2 diabetes mellitus without complications, M25.50 - Pain in unspecified joint Cyclic Citrullinated Peptide Today E11.9 - Type 2 diabetes mellitus without complications, M25.50 - Pain in unspecified joint Lipid Panel 6 Months E11.9 - Type 2 diabetes mellitus without complications, E78.5 - Hyperlipidemia, unspecified, Z00.00 - Encounter for general adult medical examination without abnormal findings Hemoglobin A1c 6 Months E11.9 - Type 2 diabetes mellitus without complications, E78.5 - Hyperlipidemia, unspecified, Z00.00 - Encounter for general adult medical examination without abnormal findings Comprehensive Met. Panel 6 Months E11.9 - Type 2 diabetes mellitus without complications, E78.5 - Hyperlipidemia, unspecified, Z00.00 - Encounter for general adult medical examination without abnormal findings Complete Blood Count Auto Diff 6 Months E11.9 - Type 2 diabetes mellitus without complications, E78.5 - Hyperlipidemia, unspecified, Z00.00 - Encounter for general adult medical examination without abnormal findings Microalbumin, Random (w Creat) 6 Months E11.9 - Type 2 diabetes mellitus without complications, E78.5 - Hyperlipidemia, unspecified, Z00.00 - Encounter for general adult medical examination without abnormal findings XR hand LT min 3V Today E11.9 - Type 2 diabetes mellitus without complications, M25.50 - Pain in unspecified joint Uric Acid Today E11.9 - Type 2 diabetes mellitus without complications, M25.50 - Pain in unspecified joint JAVID Reflex Titer and Pattern Today E11.9 - Type 2 diabetes mellitus without complications, M25.50 - Pain in unspecified joint Lyme IgG/IgM w/reflex to WB Today E11.9 - Type 2 diabetes mellitus without complications, M25.50 - Pain in unspecified joint PSA,Total (Free>4and<10) 6 Months E11.9 - Type 2 diabetes mellitus without complications, E78.5 - Hyperlipidemia, unspecified, Z00.00 - Encounter for general adult medical examination without abnormal findings Medications: New meloxicam 15 mg PO DAILY 30 tabs 2RF Coding Level of Care Code Est Pt Level 4 (83950) Diagnoses Arthralgia M25.50 Type 2 diabetes mellitus E11.9 Hyperlipidemia E78.5
[2024-03-03 13:57] VITALS: BP 126/82; PULSE 82; O2SAT 98; BMI 27.5
== END 2024-03-03 14:47 | disposition home or self-care (01) ==
PROVIDERS: PCP Internal Medicine; Visit Provider Internal Medicine
DX: M25.50 Pain in unspecified joint (principal); E11.9 Type 2 diabetes mellitus without complications; E78.5 Hyperlipidemia, unspecified
CPT/HCPCS: 99214

== ENCOUNTER 2024-03-03 14:36 | Outpatient (REF) | payer BC, SELFPAY ==
--- NOTE | ~2024-03-03 | XR_ITS ---
EXAMINATION: XR HAND, LEFT CLINICAL INFORMATION: Pain in unspecified joint COMPARISON: None available. TECHNIQUE: PA, lateral, and oblique views of the left hand. FINDINGS: No evidence for acute fracture or dislocation. Slight narrowing in the left first MCP joint. No distinct erosive process. Metacarpals are intact. No opaque foreign body seen. XR/XR hand LT min 3V IMPRESSION: No acute process. Slight narrowing in the left first MCP joint.
--- NOTE | ~2024-03-03 | XR_ITS ---
EXAMINATION: XR HAND, RIGHT CLINICAL INFORMATION: Pain in unspecified joint COMPARISON: None available. TECHNIQUE: PA, lateral, and oblique views of the right hand. FINDINGS: No evidence for acute fracture or dislocation. Slight narrowing in the right first MCP joint. No evidence for erosive process. No appreciable abnormal soft tissue calcifications or opaque foreign body. XR/XR hand RT min 3V IMPRESSION: No acute process. Slight narrowing in the right first MCP joint.
== END 2024-03-03 14:37 | disposition home or self-care (01) ==
LOC: HO.HMGCX 14:36
PROVIDERS: PCP Internal Medicine; Visit Provider Internal Medicine
DX: M79.642 Pain in left hand (principal); M79.641 Pain in right hand; E11.9 Type 2 diabetes mellitus without complications
CPT/HCPCS: 73130

== ENCOUNTER 2024-03-05 09:09 | Outpatient (REF) | payer BC, SELFPAY ==
[2024-03-05 12:02] LABS: C Reactive Protein 0.16 mg/dL (< or = 0.50); Rheumatoid Factor 101.8 IU/mL (<15.0)
[2024-03-05 12:09] LABS: Uric Acid 5.1 mg/dL (3.4-7.0)
[2024-03-05 12:15] LABS: Erythrocyte Sedimentation Rate 23 MM/HR (0-15)
[2024-03-07 22:39] LABS: Lyme Abs Screen <0.90 index
[2024-03-08 09:13] LABS: Cyclic Citrullinated Peptide >250 UNITS
[2024-03-15 11:53] LABS: Anti Nuclear Antibody Pattern Nuclear, Speckled; Anti Nuclear Antibody Screen POSITIVE (NEGATIVE)
== END 2024-03-05 09:10 | disposition home or self-care (01) ==
LOC: HO.HMGCLDS 09:09
PROVIDERS: PCP Internal Medicine; Visit Provider Internal Medicine
DX: M25.50 Pain in unspecified joint (principal); E11.9 Type 2 diabetes mellitus without complications
CPT/HCPCS: 36415; 84550; 85652; 86038; 86039; 86140; 86200; 86431; 86617; 86618

== ENCOUNTER 2024-08-27 08:01 | Outpatient (REF) | payer BC, SELFPAY ==
[2024-08-27 11:37] LABS: Basophils Absolute Auto 0.2 X10*3/uL (0.0-0.2); Basophils Percent Auto 1.4 % (0-2); Eosinophils Absolute Auto 0.2 X10*3/uL (0.0-0.4); Eosinophils Percent Auto 2.2 % (0-4); Hemoglobin 12.7 g/dl (14.0-18.0); Imm Gran Abs Auto 0.02 X10*3/uL (0.00-0.03); Imm Gran Pct Auto 0.2 % (0.0-0.4); Lymphocytes Percent Auto 60.4 % (20-40); MANUAL DIFF FLAG SCAN; Mean Corpuscular HGB Conc 33.4 g/dl (31.0-36.0); Mean Corpuscular Hemoglobin 29.1 pg (27.0-33.0); Mean Corpuscular Volume 87.2 fL (80.0-98.0); Mean Platelet Volume 9.7 fL (9.4-12.4); Monocytes Absolute Auto 0.6 X10*3/uL (0.1-1.2); Monocytes Percent Auto 5.9 % (2-11); Neutrophils Absolute Auto 3.2 x10*3/uL (2.0-8.3); Neutrophils Percent Auto 29.9 % (45-73); Platelet Count 318 X10*3/uL (160-400); Red Blood Count 4.36 X10*6/uL (4.60-5.80); SCAN SMEAR FLAG 1; White Blood Count 10.8 X10*3/uL (4.8-10.8)
[2024-08-27 11:45] LABS: Estimated Average Glucose 137 mg/dL; Hemoglobin A1C 154.4786 umol/L; Hemoglobin A1c % 6.4 % (<6.0); Total Hemoglobin (HGBA1C) 3358.9522 umol/L
[2024-08-27 11:46] LABS: Alanine Aminotransferase 25 U/L (0-40); Alkaline Phosphatase 58 U/L (39-117); Anion Gap 8 (12-20); Aspartate Amino Transferase 34 U/L (5-37); Bilirubin Total 0.4 mg/dL (0.0-1.0); Blood Urea Nitrogen 14 mg/dL (9-16); Calcium 9.7 mg/dL (8.4-10.2); Carbon Dioxide 25 mmol/L (22-29); Chloride 111 mmol/L (96-108); Cholesterol 153 mg/dL (<200); Estimated Glomerular Filt Rate > 60; Glucose Random 103 mg/dL (60-115); HDL Cholesterol 46 mg/dL (>40); LDL Cholesterol Calculated 86 mg/dL (<100); Potassium 4.2 mmol/L (3.3-5.1); Sodium 140 mmol/L (135-145); Total Protein 7.2 g/dL (6.5-8.0); Triglycerides 106 mg/dL (<150)
[2024-08-27 11:56] LABS: PSA,Total (Free>4and<10) 0.61 ng/mL (0.00-4.00)
[2024-08-27 11:59] LABS: Lymphocytes Absolute Auto 6.5 X10*3/uL (1.2-4.9)
[2024-08-27 12:01] LABS: Creatinine Urine 43.07 mg/dL; Microalbumin Urine < 5.0 mg/L
[2024-08-27 12:07] LABS: SLIDE REVIEW VERIFIED
== END 2024-08-27 08:02 | disposition home or self-care (01) ==
LOC: HO.HMGCLDS 08:01
PROVIDERS: PCP Internal Medicine; Visit Provider Internal Medicine
DX: Z00.00 Encounter for general adult medical examination without abnormal findings (principal); E78.5 Hyperlipidemia, unspecified; E11.9 Type 2 diabetes mellitus without complications; Z12.5 Encounter for screening for malignant neoplasm of prostate
CPT/HCPCS: 36415; 80053; 80061; 82043; 82570; 83036; 84153; 85025

== ENCOUNTER 2024-09-06 10:21 | Outpatient (AMB) | payer BC, SELFPAY ==
--- NOTE | 2024-09-06 10:27 | A.OFFPC_ITS ---
Vital Signs 09/06/24 10:28 Height 5 ft 10 in Weight 192 lb BMI 27.5 BP 126/76 Blood Pressure Location Lt brachial Position Sitting Pulse 83 Pulse Source Pulse Oximeter Pulse Oximetry (%) 95 Oxygen Delivery Method Room Air Intake Visit Reasons: PE Intake Note: Pt is here today for PE. Allergies empagliflozin [From Jardiance] Allergy (Verified 09/06/24 10:29) chest pain Medication List - Last Reconciled 09/06/24 by Flower Bliss MD albuterol sulfate 90 mcg/actuation 0 mcg inhalation hydroxychloroquine 200 mg PO DAILY meloxicam 15 mg PO DAILY metformin 1,000 mg PO BID rosuvastatin 20 mg PO DAILY tamsulosin 0.4 mg PO BEDTIME Tobacco use date assessed: 09/06/24 Fall risk assessment: No Falls in past year Last assessed Fall Risk: 09/06/24 Dental Screening Dental Screen Date: 09/06/24 Did you have a dental visit in the last 12 months?: Yes Did you have a dental problem in the last 6 months where you did not have access to dental care?: No Was dental information given to patient?: Patient has dentist HPI PE HPI Details Pt presents for PE. [facility] Medical History Splenic artery aneurysm Hx of renal cell carcinoma Annual physical exam GERD (gastroesophageal reflux disease) Rectal bleeding Rosacea Hyperlipidemia Type 2 diabetes mellitus Surgical History H/O colonoscopy No pertinent past surgical history Family History Father No problems noted. Mother No problems noted. Social History Housing: House Alcohol intake: current Alcohol intake frequency: does not drink Patient Tobacco Use Status: Never used Tobacco e-Cigarette/Vaping Use: Never Used service: No Current occupational status: employed Cognitive needs: No Hearing needs: No Vision needs: No Questionnaire PHQ-9 Over the last 2 weeks, how often have you been bothered by any of the following problems? 1. Little interest or pleasure in doing things: not at all 2. Feeling down, depressed, or hopeless: not at all 3. Trouble falling or staying asleep, or sleeping too much: not at all 4. Feeling tired or having little energy: not at all 5. Poor appetite or overeating: not at all 6. Feeling bad about yourself - or that you are a failure or have let yourself or your family down: not at all 7. Trouble concentrating on things, such as reading the newspaper or watching television: not at all 8. Moving or speaking so slowly that other people could have noticed. Or the opposite - being so fidgety or restless that you have been moving around a lot more than usual: not at all 9. Thoughts that you would be better off or of hurting yourself in some way: not at all Total score: 0 Depression Screening Interpretation: Negative Depression Screening Done: Yes 20276 - PHQ-9 Billing: Yes Source: Developed by Drs. Hema Barclay, Ayesha Royal, Mert Root and colleagues, with an educational ashok from [facility]. Thrive Questionnaire Date Thrive assessed: 09/06/24 I am a: Patient What is your living situation today?: I have a steady place to live Within the past 12 months, did the food you bought not last and you didn't have the money to get more?: Never true Within the past 12 months, did you worry whether your food would run out before you got money to buy more?: Never true Do you have trouble paying for medicines?: No Do you have trouble getting transportation to medical appointments?: No Do you have trouble paying your heating and electricity bill?: No Do you have trouble taking care of your child, family member or friend?: No Do you have trouble with day-to-day activities such as bathing, preparing meals, shopping, managing finances, etc.?: No Are you currently unemployed and looking for a job?: No Are you interested in more education?: No Please select the resources that you would like help with: None THRIVE Score: 0 AUDIT C Alcohol Use Questionnaire (AUDIT-C) 1. How often do you have a drink containing alcohol?: Never 3. How often do you have six or more drinks on one occasion?: Never Total Score: 0 RADHA-7 AMB Questionnaire RADHA-7 Date RADHA - 7 assessed: 09/06/24 Feeling nervous, anxious, or on edge: 0 = Not at all Not being able to stop or control worryin = Not at all Worrying too much about different things: 0 = Not at all Trouble relaxin = Not at all Being so restless that it is hard to sit still: 0 = Not at all Becoming easily annoyed or irritable: 0 = Not at all Feeling afraid as if something awful might happen: 0 = Not at all Total RADHA-7 score (0-4 normal; 5-9 mild; 10-14 moderate; 15-21 severe): 0 Source: Developed by Drs. Hema Barclay, Ayesha Royal, Mert Root and colleagues, with an educational ashok from [facility]. RADHA-7 Assessment Billing RADHA-7 Assessment Tool: RADHA-7 Assessment 87797 Review of Systems Const All systems reviewed & are unremarkable except as noted in HPI and below Eyes Reports no additional complaints ENT Reports no additional complaints Card Reports no additional complaints Resp Reports no additional complaints GI Reports no additional complaints Reports no additional complaints Musc Reports no additional complaints Physical exam (Primary Care) Vital Signs: Last Vital Signs Pulse 83 09/06/24 10:28 BP 126/76 09/06/24 10:28 Pulse Ox 95 09/06/24 10:28 Oxygen Delivery Method Room Air 09/06/24 10:28 BMI result Body Mass Index 27.5 Tobacco/Smoking Status: Tobacco use Status Tobacco use date assessed 09/06/24 09/06/24 10:32 Patient Tobacco Use Status Never used Tobacco 09/06/24 10:32 e-Cigarette/Vaping Use Never Used 09/06/24 10:32 PHQ-9: PHQ-9 Score PHQ-9: Total score 0 09/06/24 10:38 Depression Screening Interpretation: Negative Thrive Assessment: Date of Thrive Assessment Date Thrive assessed 09/06/24 09/06/24 10:32 Const General: no acute distress HENMT Head: Yes normal to inspection Ears: hearing grossly normal bilaterally Face and sinus: Yes normal facial exam Throat: Yes posterior oropharynx normal Eyes General: appearance normal, both eyes and all related structures Neck Neck: Yes no lymphadenopathy and Yes supple Resp Effort & Inspection: normal respiratory effort Auscultation: clear to auscultation bilaterally Cardio Rhythm: regular rhythm Heart sounds: S1 normal heart sound present and S2 normal heart sound present GI Inspection: Yes normal to inspection Palpation (GI): Soft to palpation Percussion: Yes normal to percussion Auscultation: normal bowel sounds Coding Level of Care Code Est Pt Prev Care >65y(06363) Diagnoses Rheumatoid arthritis M06.9 Annual physical exam Z00.00 Hyperlipidemia E78.5 Type 2 diabetes mellitus E11.9 Additional Codes RADHA-7 Assessment Billing - RADHA-7 Assessment Tool: RADHA-7 Assessment 06208 ([id number]) PHQ-9 - 83622 - PHQ-9 Billing: Yes ([id number]) Assessment & Plan Assessment & Plan (1) Rheumatoid arthritis: Comment: f/u rheumatology Dr. Walsh Code(s): M06.9 - Rheumatoid arthritis, unspecified Category: Medical Plan: Taking meloxicam and Plaquenil and follows up with Rheumatology (2) Annual physical exam: Code(s): Z00.00 - Encounter for general adult medical examination without abnormal findings Category: Medical Plan: Well-balanced diet regular physical activity discussed with the patient. He is overdue for colonoscopy but patient declined. Cologuard is ordered (3) Hyperlipidemia: Code(s): E78.5 - Hyperlipidemia, unspecified Category: Medical Plan: Continue statin (4) Type 2 diabetes mellitus: Code(s): E11.9 - Type 2 diabetes mellitus without complications Category: Medical Plan: A1c is 6.4, ADA diet increase physical activity discussed with the patient he will continue metformin follow-up in 4 months with a fasting labs before Orders: Orders Comprehensive [place]. Panel Fast 4 Months E11.9 - Type 2 diabetes mellitus without complications, E78.5 - Hyperlipidemia, unspecified, Z00.00 - Encounter for general adult medical examination without abnormal findings Vitamin B12 and Folate 4 Months E11.9 - Type 2 diabetes mellitus without complications, E78.5 - Hyperlipidemia, unspecified, Z00.00 - Encounter for general adult medical examination without abnormal findings Complete Blood Count Auto Diff 4 Months E11.9 - Type 2 diabetes mellitus without complications, E78.5 - Hyperlipidemia, unspecified, Z00.00 - Encounter for general adult medical examination without abnormal findings IRON PROFILE 4 Months E11.9 - Type 2 diabetes mellitus without complications, E78.5 - Hyperlipidemia, unspecified, Z00.00 - Encounter for general adult medical examination without abnormal findings Hemoglobin A1c 4 Months E11.9 - Type 2 diabetes mellitus without complications, E78.5 - Hyperlipidemia, unspecified, Z00.00 - Encounter for general adult medical examination without abnormal findings Lipid Panel 4 Months E11.9 - Type 2 diabetes mellitus without complications, E78.5 - Hyperlipidemia, unspecified, Z00.00 - Encounter for general adult medical examination without abnormal findings Microalbumin, Random (w Creat) 4 Months E11.9 - Type 2 diabetes mellitus without complications, E78.5 - Hyperlipidemia, unspecified, Z00.00 - Encounter for general adult medical examination without abnormal findings Referrals Cologuard Test Z12.11 - Encounter for screening for malignant neoplasm of colon, Z12.12 - Encounter for screening for malignant neoplasm of rectum Medications: New tamsulosin 0.4 mg PO BEDTIME 90 caps 2RF
[2024-09-06 10:28] VITALS: BP 126/76; PULSE 83; O2SAT 95; BMI 27.5
== END 2024-09-06 11:11 | disposition home or self-care (01) ==
PROVIDERS: PCP Internal Medicine; Visit Provider Internal Medicine
DX: M06.9 Rheumatoid arthritis, unspecified (principal); Z00.00 Encounter for general adult medical examination without abnormal findings; E78.5 Hyperlipidemia, unspecified; E11.9 Type 2 diabetes mellitus without complications

== ENCOUNTER → 2024-09-06 10:21 | Outpatient (BNVA) | payer BC, SELFPAY | PROVIDERS: PCP Internal Medicine; Visit Provider Internal Medicine | DX: Z00.00 Encounter for general adult medical examination without abnormal findings (principal); M06.9 Rheumatoid arthritis, unspecified; E78.5 Hyperlipidemia, unspecified; E11.9 Type 2 diabetes mellitus without complications; Z79.84 Long term (current) use of oral hypoglycemic drugs; Z79.899 Other long term (current) drug therapy | CPT/HCPCS: 96127 ==

== ENCOUNTER 2024-12-31 07:22 | Outpatient (REF) | payer BC, SELFPAY ==
[2024-12-31 11:34] LABS: Basophils Absolute Auto 0.2 X10*3/uL (0.0-0.2); Basophils Percent Auto 1.5 % (0-2); Eosinophils Absolute Auto 0.3 X10*3/uL (0.0-0.4); Eosinophils Percent Auto 3.5 % (0-4); Hematocrit 37.8 % (42.0-52.0); Hemoglobin 12.4 g/dl (14.0-18.0); Imm Gran Abs Auto 0.02 X10*3/uL (0.00-0.03); Imm Gran Pct Auto 0.2 % (0.0-0.4); Lymphocytes Absolute Auto 5.5 X10*3/uL (1.2-4.9); Lymphocytes Percent Auto 55.4 % (20-40); MANUAL DIFF FLAG SCAN; Mean Corpuscular HGB Conc 32.8 g/dl (31.0-36.0); Mean Corpuscular Hemoglobin 29.1 pg (27.0-33.0); Mean Corpuscular Volume 88.7 fL (80.0-98.0); Mean Platelet Volume 9.9 fL (9.4-12.4); Monocytes Absolute Auto 0.8 X10*3/uL (0.1-1.2); Monocytes Percent Auto 8.5 % (2-11); Neutrophils Percent Auto 30.9 % (45-73); Platelet Count 272 X10*3/uL (160-400); Red Blood Count 4.26 X10*6/uL (4.60-5.80); Red Cell Distribution Width 13.3 % (11.0-16.0); SCAN SMEAR FLAG 1; White Blood Count 9.8 X10*3/uL (4.8-10.8)
[2024-12-31 11:42] LABS: Estimated Average Glucose 137 mg/dL; Hemoglobin A1C 153.2206 umol/L; Hemoglobin A1c % 6.4 % (<6.0); Total Hemoglobin (HGBA1C) 3314.1875 umol/L
[2024-12-31 11:55] LABS: Creatinine Urine 76.44 mg/dL; Microalbumin Urine < 5.0 mg/L
[2024-12-31 11:55] LABS: Alanine Aminotransferase 22 U/L (0-40); Alkaline Phosphatase 66 U/L (39-117); Anion Gap 13 (12-20); Aspartate Amino Transferase 33 U/L (5-37); Bilirubin Total 0.4 mg/dL (0.0-1.0); Blood Urea Nitrogen 13 mg/dL (9-16); Calcium 9.6 mg/dL (8.4-10.2); Carbon Dioxide 23 mmol/L (22-29); Chloride 107 mmol/L (96-108); Cholesterol 161 mg/dL (<200); Estimated Glomerular Filt Rate > 60; Glucose Fasting 99 mg/dL (60-99); HDL Cholesterol 46 mg/dL (>40); Iron 60 mcg/dL (45-160); LDL Cholesterol Calculated 96 mg/dL (<100); Percent Iron Saturation 19 % (15-50); Potassium 4.2 mmol/L (3.3-5.1); Sodium 139 mmol/L (135-145); Total Iron Binding Capacity 317 mcg/dL (228-428); Total Protein 7.1 g/dL (6.5-8.0); Triglycerides 98 mg/dL (<150); Unsaturated Iron Binding 257 ug/dL
[2024-12-31 12:00] LABS: SLIDE REVIEW VERIFIED
[2024-12-31 12:10] LABS: Folate 9.1 ng/mL (> or = 4.0); Vitamin B12 548 pg/mL (200-900)
== END 2024-12-31 07:23 | disposition home or self-care (01) ==
LOC: HO.HMGCLDS 07:22
PROVIDERS: PCP Internal Medicine; Visit Provider Internal Medicine
DX: Z00.00 Encounter for general adult medical examination without abnormal findings (principal); E78.5 Hyperlipidemia, unspecified; E11.9 Type 2 diabetes mellitus without complications
CPT/HCPCS: 36415; 80053; 80061; 82570; 82607; 82746; 83036; 83540; 85025

== ENCOUNTER 2025-01-04 12:49 | Outpatient (AMB) | payer BC, SELFPAY ==
[2025-01-04 13:13] VITALS: BP 108/68; PULSE 88; O2SAT 97; BMI 27.0
--- NOTE | 2025-01-04 13:13 | A.OFFPC_ITS ---
Vital Signs 01/04/25 13:13 Height 5 ft 10 in Weight 188 lb BMI 27.0 BP 108/68 Blood Pressure Location Lt brachial Position Sitting Pulse 88 Pulse Source Pulse Oximeter Pulse Oximetry (%) 97 Oxygen Delivery Method Room Air Intake Visit Reasons: 4 months f/up Intake Note: Pt is here today for 4 months follow up visit. Allergies empagliflozin [From Jardiance] Allergy (Verified 01/04/25 13:18) chest pain Medication List - Last Reconciled 01/04/25 by Flower Bliss MD albuterol sulfate 90 mcg/actuation 0 mcg inhalation hydroxychloroquine 200 mg PO DAILY meloxicam 15 mg PO DAILY metformin 1,000 mg PO BID rosuvastatin 20 mg PO DAILY tamsulosin 0.4 mg PO BEDTIME Tobacco use date assessed: 01/04/25 Fall risk assessment: No Falls in past year Last assessed Fall Risk: 01/04/25 Dental Screening Dental Screen Date: 01/04/25 Did you have a dental visit in the last 12 months?: Yes Did you have a dental problem in the last 6 months where you did not have access to dental care?: No Was dental information given to patient?: Patient has dentist HPI 4 months f/up HPI Details Patient presents for the follow-up of type 2 diabetes hyperlipidemia BPH RA stable on current medications PFSH Medical History Splenic artery aneurysm Hx of renal cell carcinoma Annual physical exam GERD (gastroesophageal reflux disease) Rectal bleeding Rosacea Hyperlipidemia Type 2 diabetes mellitus Surgical History H/O colonoscopy No pertinent past surgical history Family History Father No problems noted. Mother No problems noted. Social History Housing: House Alcohol intake: current Alcohol intake frequency: does not drink Patient Tobacco Use Status: Never used Tobacco e-Cigarette/Vaping Use: Never Used service: No Current occupational status: employed Cognitive needs: No Hearing needs: No Vision needs: No Questionnaire Thrive Questionnaire Date Thrive assessed: 09/06/24 I am a: Patient RADHA-7 AMB Questionnaire RADHA-7 Date RADHA - 7 assessed: 09/06/24 Source: Developed by Drs. Hema Barclay, Ayesha Royal, Mert Root and colleagues, with an educational ashok from [employer] OTR. Review of Systems Const All systems reviewed & are unremarkable except as noted in HPI and below Eyes Reports no additional complaints ENT Reports no additional complaints Card Reports no additional complaints Resp Reports no additional complaints GI Reports no additional complaints Reports no additional complaints Physical exam (Primary Care) Vital Signs: Last Vital Signs Pulse 88 01/04/25 13:13 BP 108/68 01/04/25 13:13 Pulse Ox 97 01/04/25 13:13 Oxygen Delivery Method Room Air 01/04/25 13:13 BMI result Body Mass Index 27.0 Tobacco/Smoking Status: Tobacco use Status Tobacco use date assessed 01/04/25 01/04/25 13:21 Patient Tobacco Use Status Never used Tobacco 01/04/25 13:13 e-Cigarette/Vaping Use Never Used 01/04/25 13:13 Thrive Assessment: Date of Thrive Assessment Date Thrive assessed 09/06/24 01/04/25 13:13 Const General: no acute distress HENMT Face and sinus: Yes normal facial exam Resp Effort & Inspection: normal respiratory effort Auscultation: clear to auscultation bilaterally Cardio Rhythm: regular rhythm Heart sounds: S1 normal heart sound present and S2 normal heart sound present GI Inspection: Yes normal to inspection Palpation (GI): Soft to palpation Percussion: Yes normal to percussion Auscultation: normal bowel sounds Immunizations pneumoc 20-kwame conj-dip cr(PF) 0.5 mL IM syringe Performing Provider: Flower Bliss MD Performing Location: [facility] Administered by: Dior Granger CMA on 01/04/25 13:37 Dose Route Admin Location Dispensed Lot Number Expiration Date [facility] Diesel Maintenance Electric[employer] 0.5 mL IM Left Deltoid 0.5 mL [id number] 02/13/26 0187-3512-02 [employer] VIS Given Date VIS Provided VIS Publication Date 01/04/25 Single Vaccine 21 Eligibility Eligibility Date Funding Source Not [facility] Eligible 01/04/25 Private Coding Level of Care Code Est Pt Level 4 (10846) Diagnoses Type 2 diabetes mellitus E11.9 Hyperlipidemia E78.5 Splenic artery aneurysm I72.8 Rheumatoid arthritis M06.9 Assessment & Plan Assessment & Plan (1) Type 2 diabetes mellitus: Code(s): E11.9 - Type 2 diabetes mellitus without complications Category: Medical Plan: A1c is 6.4, ADA diet regular physical activity discussed with the patient continue metformin follow-up in 4 months with a fasting labs before (2) Hyperlipidemia: Code(s): E78.5 - Hyperlipidemia, unspecified Category: Medical Plan: Continue statin (3) Splenic artery aneurysm: Comment: left on CT, monitored with Becca MCMAHON Code(s): I72.8 - Aneurysm of other specified arteries Category: Medical Plan: Follow-up with the vascular surgeon (4) Rheumatoid arthritis: Comment: f/u rheumatology Dr. Walsh Code(s): M06.9 - Rheumatoid arthritis, unspecified Category: Medical Plan: Controlled on hydrochloroquine, follow-up with Rheumatology Orders: Orders Pneumococcal 20 Immunization Today Z23 - Encounter for immunization Hemoglobin A1c 4 Months E11.9 - Type 2 diabetes mellitus without complications, E78.5 - Hyperlipidemia, unspecified, I72.8 - Aneurysm of other specified arteries, M06.9 - Rheumatoid arthritis, unspecified Comprehensive [place]. Panel Fast 4 Months E11.9 - Type 2 diabetes mellitus without complications, E78.5 - Hyperlipidemia, unspecified, I72.8 - Aneurysm of other specified arteries, M06.9 - Rheumatoid arthritis, unspecified Lipid Panel 4 Months E11.9 - Type 2 diabetes mellitus without complications, E78.5 - Hyperlipidemia, unspecified, I72.8 - Aneurysm of other specified art eries, M06.9 - Rheumatoid arthritis, unspecified Microalbumin, Random (w Creat) 4 Months E11.9 - Type 2 diabetes mellitus without complications, E78.5 - Hyperlipidemia, unspecified, I72.8 - Aneurysm of other specified arteries, M06.9 - Rheumatoid arthritis, unspecified
== END 2025-01-04 13:36 | disposition home or self-care (01) ==
LOC: HO.HMCC 12:50
PROVIDERS: PCP Internal Medicine; Visit Provider Internal Medicine
DX: E11.9 Type 2 diabetes mellitus without complications (principal); E78.5 Hyperlipidemia, unspecified; I72.8 Aneurysm of other specified arteries; M06.9 Rheumatoid arthritis, unspecified; Z23 Encounter for immunization

== ENCOUNTER → 2025-01-04 12:49 | Outpatient (BNVA) | payer BC, SELFPAY | PROVIDERS: PCP Internal Medicine; Visit Provider Internal Medicine | DX: E11.9 Type 2 diabetes mellitus without complications (principal); E78.5 Hyperlipidemia, unspecified; N40.0 Benign prostatic hyperplasia without lower urinary tract symptoms; I72.8 Aneurysm of other specified arteries; M06.9 Rheumatoid arthritis, unspecified; Z23 Encounter for immunization | CPT/HCPCS: 90471; 90677 ==

== ENCOUNTER 2025-05-06 07:11 | Outpatient (REF) | payer BC, SELFPAY ==
--- OUTSIDE RECORDS SUMMARY | 2025-05-06 07:14 | XMS_ITS | Encounter Summary ---
Author Organization [employer] [facility] Address [address] [place] [phone] Phone Care Team Providers Care Procurement Agent Name Role Phone Flower Bliss MD Primary Care Provider [phone] Owen Quan MD Unavailable [phone] Encounter Details Date Type Department Care Team (Late st Contact Info) Description 01/05/2024 Procedure Pass [facility], Ct Scan - [address] [address] Social History Tobacco Use Types Packs/Day Years Used Date Smoking Tobacco: Never Smokeless Tobacco: Never Alcohol Use Standard Drinks/Week Comments Never 0 (1 standard drink = 0.6 oz pur e alcohol) Education Answer Date Recorded Are you interested in more education? Not on na e 12/14/2022 Are you concerned about learning? Not on file 12/14/2022 No 12/14/2022 No 12/14/2022 Digital Access Answer Date Recorded No 01/06/2023 No 01/06/2023 Reliable internet access at home? Not on file 01/06/2023 Device with a working camera? Not on file Sex and Gender Information Value Date Recorded Sex Assigned at Not on file Legal Sex Male 5:10 PM EST Gender Identity Not on file Sexual Orientation Not on file documented as of this encounter Plan of Treatment Upcoming Encounters Date Type Department Care Team (Latest Contact Info) Description 06/23/2025 Procedure Pass [facility] Endoscopy Department [address] [place] [id number] 06/23/2025 4:00 PM EST Hospital Encounter [facility] Endoscopy Department [address] [place] [phone] Catherine Caceres MBBS, MPH [address] [place] [id number] [email or web address] 06/23/2025 4:00 PM EST - 06/23/2025 4:45 PM EST Surgery [facility] Endoscopy Department [address] [place] [phone] Catherine Caceres MBBS, MPH [address] [place] [phone] [email or web address] 09/08/2025 3:30 PM EST Blood Draw Laboratory Services, [address] [place] [address] Lance Coles MD, PhD [address] [place], [place] [id number] [place] [address] [email or web address] 09/08/2025 4:30 PM EST Office Visit [facility], Division of Hematologic Oncology, [address] [place] [address] Lance Coles MD, PhD [address] [place] [address] [place] [address] [email or web address] Scheduled Procedures Name Priority Associated Diagnoses Date/Ti me ESOPHAGOGASTRODUODENOSCOPY Esophagitis 06/23/2025 4:00 PM EST documented as of this encounter Visit Diagnoses Not on filedocumented in this encounter Care Teams Procurement Agent Relationship Specialty Start Date End Date Flower Bliss MD [address] [facility] [place] [address] PCP - General Internal Medicine 02/21/20 Owen Quan MD [address] [place] [address] [email or web address] Medical Oncology 09/24/21 documented as of this encounter Additional Source Comments The information contained in this document represents components of the legal health record. It is not the complete legal health record.[facility]
--- OUTSIDE RECORDS SUMMARY | 2025-05-06 07:14 | XMS_ITS | Clinical Summary ---
Author Organization [facility] Address [address] [facility] [address] [place] [address] Phone Care Team Providers Care Clerical Support Name Role Phone Brent Bliss MD Primary Care Provider [phone] Owen Quan MD Unavailable [phone] Allergies No known active allergies Medications rosuvastatin (CRESTOR) 20 MG tablet Take 20 mg by mouth daily. Active metFORMIN (GLUCOPHAGE) 1000 MG tablet Activ e hydroxychloroqu ine (PLAQUENIL) 200 mg tablet 06/16/2024 Activ e omeprazole (PRILOSEC) 20 MG capsule Take 1 capsule (20 mg total) by mouth 2 (two) times a day before meals. 168 capsule 02/24/2025 5 Active Active Problems Problem Noted Date Diagnosed Date Kidney cancer, primary, with metastasis from kidney to other site, left 01/20/2019 Assessment & Plan (08/21/2021 7:49 AM EST): Assessment: Hernan Sharpe is a 61 y.o. male who is nearly 8 years status post a left robotic partial nephrectomy (11/01/13) for the management of renal cell carcinoma. Postoperative surveillance imaging was negative for disease recurrence until late 2020 when a left adrenal mass was noted. A percutaneous biopsy of the adrenal mass on 08/06/2021 showed clear cell renal cell carcinoma. Recent chest imaging on 07/27/21, showed no evidence of pulmonary metastases. Mr. Sharpe has good performance status and normal renal function. Plan: 1. We spoke about the results of the percutaneous left adrenal biopsy which showed clear-cell renal cell carcinoma. I emphasized that the finding of recurrent disease is a very unusual situation based on the original pathology from the surgery in 2013 as well as the long duration from the surgery, but it is also the reason for continued surveillance imaging. Aside from this one area associated the left adrenal gland, there does not appear to be any other sites of disease. 2. We discussed management options including extirpate of surgery which would be a left adrenalectomy versus percutaneous ablation. The challenges surgery is that Mr. Sharpe has already previously had surgery in this area as his original kidney surgery was at the upper pole of the left kidney. Therefore, there is region has been violated previously and likely has fibrosis at this time. Surgery is inherently associated the possible injury to surrounding structures such as the tail of the pancreas and the spleen as well as the renal hilum of the left kidney and the left kidney itself. On the other hand, percutaneous thermal ablation may be preferable though the feasibility of this approach may be predicated on the potential impact of nearby structures (tail of the pancreas, spleen, renal hilum). 3. Mr. Sharpe is very much in favor of treatment of this solitary site of disease though he is undecided on the approach. I have advocated for the ablative approach given the reduced morbidity if it is technically feasible. I will arrange for Mr. Sharpe to meet with Radiology to discuss the pros and cons for percutaneous thermal ablation. At the same time, I will endeavor to schedule a left laparoscopic adrenalectomy, with possible conversion to an open procedure and combined approach with surgical oncology. Mr. Sharpe understands that the current COVID-19 surge may potentially delay the time of surgery. Should he ultimately proceed with ablation, then surgery will be deferred. Assessment & Plan (02/21/2020 10:00 AM EDT): Assessment: Hernan Sharpe is a 59 y.o. male who is over 6 years status post a left robotic partial nephrectomy for the management of renal cell carcinoma on 11/01/13. He has no evidence of disease recurrence based on surveillance imaging (01/10/20). Plan: 1. We spoke about the results of the surveillance imaging, which demonstrates no evidence of disease recurrence. 2. I explained that multiple guidelines for kidney cancer state that it is acceptable to discontinue surveillance at this point. However, I feel that Mr. Sharpe has excellent longevity and thus I recommending continuing with yearly surveillance for the time being. He will return in 1 year with repeat surveillance imaging consisting of chest X-ray and abdominal ultrasound. He will also have his renal function assessed at that time with a basic metabolic panel. Assessment & Plan (01/20/2019 8:37 AM EDT): Assessment: Hernan Sharpe is a 58 y.o. male who is over 5 years status post a left robotic partial nephrectomy for the management of renal cell carcinoma on 11/01/13. He has no evidence of disease recurrence based on surveillance imaging (12/04/18). Plan: 1. We spoke about the results of the surveillance imaging, which demonstrates no evidence of disease recurrence. 2. I explained that multiple guidelines for kidney cancer state that it is acceptable to discontinue surveillance at this point. However, I feel that Mr. Sharpe has excellent longevity and thus I recommending continuing with yearly surveillance for the time being. He will return in 1 year with repeat surveillance imaging consisting of chest X-ray and abdominal ultrasound. He will also have his renal function assessed at that time with a basic metabolic panel. Clear cell carcinoma of kidney 11/16/2013 Overview (10/07/2014): Renal cell carcinoma Assessment & Plan (01/28/2018 8:41 AM EDT): Assessment: Hernan Sharpe is a 57 y.o. male who is over 4 years status post a left robotic partial nephrectomy for the management of renal cell carcinoma on 11/01/13. He has no evidence of disease recurrence based on surveillance imaging (01/06/18). Plan: 1. We spoke about the results of the surveillance imaging, which demonstrates no evidence of disease recurrence. 2. Return in 1 year with repeat surveillance imaging consisting of chest X-ray and abdominal ultrasound. He will also have his renal function assessed at that time with a basic metabolic panel. Renal mass 09/21/2013 Overview (10/07/2014): Renal mass Assessment & Plan (01/01/2017 9:01 AM EDT): Assessment: Hernan Sharpe is a 56 y.o. male who is over 3 years status post a left robotic partial nephrectomy for the management of renal cell carcinoma. He has no evidence of disease recurrence. Plan: 1. We spoke about the results of the surveillance imaging, which demonstrates no evidence of disease recurrence. I will obtain the recent ultrasound for review. 2. Assuming that the ultrasound showed on concern for disease recurrence, Mr. Sharpe will return in 1 year with repeat surveillance imaging consisting of renal US, CXR. He will also have his renal function assessed at that time with a basic metabolic panel. Encounters Date Type Department Care Team Description 03/17/2025 Orders Only [facility] Endoscopy [address] [place] [id number] Katia Handy MBBS, MPH Esophagitis (Primary Dx) 03/17/[address] [place] [address] Katia Handy MBBS, MPH Dr Handy/patient advise 03/03/2025 2:30 PM EDT Office Visit [facility], Division of Hematologic Oncology, [facility] [place] [address] [place] [address], [address] [place] [address] Lance Coles MD, PhD Monoclonal B-cell lymphocytosis (Primary Dx); Epigastric pain 02/24/2025 3:00 PM EDT - 02/24/2025 3:45 PM EDT Surgery [facility] Endoscopy Department [address] [place] [address] Katia Handy MBBS, MPH ESOPHAGOGASTRODUODENOSCOPY 02/24/2025 1:23 PM EDT - 02/24/2025 5:13 PM EDT Hospital Encounter [facility] Endoscopy Department [address] [place] [address] Katia Handy MBBS, MPH Discharge Disposition: Home or Self Care 02/24/2025 Orders Only [facility], Division of Hematologic Oncology, [facility] [address] [place] [address] Sia Whitten CLL (chronic lymphocytic leukemia) (Primary Dx) 02/24/2025 Procedure Pass [facility] Endoscopy Department [address] [place] [address] from Last 3 Months Social History Tobacco Use Types Packs/Day Years [...] with a working camera? Not on file Intimate Partner Violence Answer Date R ecorded Are you denied basic needs s uch as food, clothing, or medical care? No 02/24/2025 In the past 12 months have y ou been in a relationship with a person who hurts, threatens, or tries to control you? No 02/24/2025 Are you denied basic needs s uch as food, clothing, or medical care? No 02/24/2025 In the past 12 months have y ou been in a relationship with a person who hurts, threatens, or tries to control you? No 02/24/2025 Sex and Gender Information Value Date Recorded Sex Assigned at Not on file Legal Sex Male 5:10 PM EST Gender Identity Not on file Sexual Orientation Not on file Last Filed Vital Signs Vital Sign Reading Time Taken Comments Blood Pressure 123/74 03/03/2025 2:00 PM EDT Pulse 71 03/03/2025 2:00 PM EDT Temperature 36.6 C (97.9 F) 03/03/2025 2:00 PM EDT Respiratory Rate 16 03/03/2025 2:00 PM EDT Oxygen Saturation 98% 03/03/2025 2:00 PM EDT Inhaled Oxygen Concentration 55.1% 02/24/2025 4 :20 PM EDT Weight 83.7 kg (184 lb 8.4 oz) 03/03/2025 2:00 P M EDT Height 174.6 cm (5' 8.74 ) 03/03/2025 2:00 PM ED T Body Mass Index 27.46 03/03/2025 2:00 PM EDT Plan of Treatment Upcoming Encounters Date Type Department Care Team (Latest Contact Info) Description 06/23/2025 Procedure Pass [facility] Endoscopy Department [address] [place] [address] 06/23/2025 4:00 PM EST Hospital Encounter [facility] Endoscopy Department [address] [place] [address] Katia Handy MBBS, MPH [address] [place] [phone] [email or web address] 06/23/2025 4:00 PM EST - 06/23/2025 4:45 PM EST Surgery [facility] Endoscopy Department [address] [place] [address] Katia Handy MBBS, MPH [address] [place] [phone] [email or web address] 09/08/2025 3:30 PM EST Blood Draw Laboratory Services, [address] [place] [address] Lance Coles MD, PhD [address] [place], [place] [address] [place] [address] [email or web address] 09/08/2025 4:30 PM EST Office Visit [facility], Division of Hematologic Oncology, [address], [address] [place] [address] Lance Coles MD, PhD [address] [place], [place] [address] [place] [address] [email or web address] Scheduled Procedures Name Priority Associated Diagnoses Date/Ti me ESOPHAGOGASTRODUODENOSCOPY Esophagitis 06/23/2025 4:00 PM EST Health Maintenance Due Date Last Done Comments LIPID PANEL 1960 DEPRESSION SCREENING 1970 COLOGUARD 2003 COLONOSCOPY 2003 COLORECTAL CANCER SCREENING 2003 FIT TEST 2003 FOBT 2003 SIGMOIDOSCOPY 2003 VIRTUAL COLONOSCOPY 2003 RSV VACCINE (1 - Risk 60-74 years 1-dose series) 2018 INFLUENZA VACCINE (#1) 2025 , 06/13/2023, 05/15/2022, Additional history exists COVID-19 VACCINE (3 - 2024- season) 2025 07/20/2021, 09/23/2020 ZOSTER VACCINES (2 of 2) 04/22/2025 02/25/2025 CREATININE LEVEL 03/03/2026 03/03/2025, , 12/02/2024, Additional history exists SCREENING FOR DIABETES 01/01/2028 12/31/2024 Adult Td,Tdap Booster 05/07/2034 05/07/2024, 018 HEPATITIS C SCREENING Completed 09/02/2024 PNEUMOCOCCAL VACCINES (50+ years) Completed 01/04/2025, 12/01/2013 SMOKING STATUS SCREENING (Once After 26 Yrs) Completed 02/24/2025 HEPATITIS A VACCINES Aged Out No long er eligible based on patient's age to complete this topic HIB VACCINES Aged Out No longer eligi ble based on patient's age to complete this topic MENINGOCOCCAL VACCINES (ACWY) Aged Out No longer eligible based on patient's age to complete this topic MENINGOCOCCAL VACCINES (B) Aged Out N o longer eligible based on patient's age to complete this topic Medical Devices Not on file Procedures Procedure Name Priority Date/Time Associated Diagnosis Comments CLLBANK 99-224 Routine 03/03/2025 1:33 PM EDT CLL (chronic lymphocytic leukemia) CLL BANK 2 Routine 03/03/2025 1:33 PM EDT CLL (chronic lymphocytic leukemia) LDH Routine 03/03/2025 1:33 PM EDT Monoclonal B-cell lymphocytosis COMPREHENSIVE METABOLIC PANEL Routine 1:33 PM EDT Clear cell carcinoma of left kidney HC BLOOD COUNT COMPLETE AUTO&AUTO DIFRNTL WBC Routine 03/03/2025 1:33 PM EDT Clear cell carcinoma of left kidney ESOPHAGOGASTRODUODENOSCOPY 02/24 3:52 PM EDT Epigastric pain Special Needs 02/23/25 pt daughter called to confirm arrival time ak02/23/25 lvm for pts daughter Brent, spoke with Lokesh pts son will pass message to sister to confirm changes arrival and change -yv 12/19/24 Pt dghtr called to r/s no reason given, prep posted, J MP/ triage revie, prep on pg..ir ENDOSCOPY PROCEDURE 02/24/2025 3:39 PM EDT ANATOMIC PATHOLOGY Routine 02/24/2025 12:00 AM EDT HEPATITIS C ANTIBODY, QUALITATIVE Routine 09/02/2024 3:14 PM EST Monoclonal B-cell lymphocytosis from Last 3 Months or Most Recently Relevant to Health Maintenance Results * CLLBANK 99-224 (03/03/2025 1:33 PM EDT) Research Test FOR RESEARCH STUDY [facility] LIC# [id number] Blood 03/03/2025 1:33 PM EDT 03/03/2025 1:48 PM EDT us Lance Coles MD, PhD LAB BLOOD ORDERABLES Final R esult [facility] LIC# [id number] [address] [place] [address] * CLL BANK 2 (03/03/2025 1:33 PM EDT) Research Test FOR RESEARCH STUDY [facility] LIC# [id number] Blood 03/03/2025 1:33 PM EDT 03/03/2025 1:49 PM EDT us Lance Coles MD, PhD LAB BLOOD ORDERABLES Final R esult Performing Organization Address City/[facility] Co de Phone Number [facility] LIC# [id number] [address] [place] [address] * LDH (03/03/2025 1:33 PM EDT) LDH 169 135 - 225 U/L [facility] LIC# [id number] Blood 03/03/2025 1:33 PM EDT 03/03/2025 1:48 PM EDT us Lance Coles MD, PhD LAB BLOOD ORDERABLES Final R esult Performing Organization Address City/[facility] Co de Phone Number [facility] LIC# [id number] [address] [place] [address] * (ABNORMAL) Comprehensive metabolic panel (03/03/2025 1:33 PM EDT) SODIUM 138 136 - 145 mmol/L [facility] LIC# [id number] POTASSIUM 3.9 3.4 - 5.1 mmol/L [facility] LIC# [id number] CHLORIDE 103 98 - 107 mmol/L [facility] LIC# [id number] CO2 23 22 - 31 mmol/L [facility] LIC# [id number] BUN 11 6 - 23 mg/dL [facility] LIC# [id number] CREATININE 0.85 0.50 - 1.20 mg/dL [facility] LIC# [id number] GLUCOSE 155(H) 70 - 100 mg/dL [facility] LIC# [id number] ALBUMIN 3.8 3.5 - 5.2 g/dL [facility] LIC# [id number] TOTAL PROTEIN 6.8 6.4 - 8.3 g/dL [facility] LIC# [id number] CALCIUM 9.1 8.8 - 10.7 mg/dL [facility] LIC# [id number] ALKALINE PHOSPHATASE 73 40 - 129 U/L [facility] LIC# [id number] TOTAL BILIRUBIN 0.2 0.2 - 1.2 mg/dL [facility] LIC# [id number] AST 16 <41 U/L [facility] LIC# [id number] ALT 15 <42 U/L [facility] LIC# [id number] GLOBULIN 3.0 2.3 - 4.2 g/dL [facility] LIC# [id number] EGFR 96 >59 mL/min/1.7 3m2 [facility] LIC# [id number] Comment:Estimated glomerular filtration rate calculated using the CKD-EPI refit equation. ANION GAP 12 7 - 17 mmol/L [facility] LIC# [id number] Blood 03/03/2025 1:33 PM EDT 03/03/2025 1:48 PM EDT us Owen Quan MD LAB BLOOD ORDERABLES Final Result [facility] LIC# [id number] [address] [place] [address] * (ABNORMAL) CBC and differential (03/03/2025 1:33 PM EDT) WBC 8.08 4.00 - 10.00 K/uL [facility] LIC# [id number] RBC 4.02(L) 4.50 - 6.40 M/uL [facility] LIC# [id number] HGB 11.9(L) 13.5 - 18.0 g/dL [facility] LIC# [id number] HCT 36.0(L) 40.0 - 54.0 % [facility] LIC# [id number] PLT 268 150 - 450 K/uL [facility] LIC# [id number] MCV 89.6 80.0 - 100.0 fL [facility] LIC# [id number] MCH 29.6 27.0 - 32.0 pg [facility] LIC# [id number] MCHC 33.1 32.0 - 36.0 g/dL [facility] LIC# [id number] RDW 12.8 11.5 - 14.5 % [facility] LIC# [id number] MPV 9.1 8.4 - 12.0 fL [facility] LIC# [id number] NRBC 0.00 0 /100 WBCs [facility] LIC# [id number] ABSOLUTE NRBC 0.00 0 K/uL [facility] LIC# [id number] DIFF METHOD Auto [facility] LIC# [id number] NEUTS 29.5(L) 48.0 - 76.0 % [facility] LIC# [id number] LYMPHS 55.1(H) 18.0 - 41.0 % [facility] LIC# [id number] MONOS 7.2 4.0 - 11.0 % [facility] LIC# [id number] EOS 6.6(H) 0.0 - 5.0 % [facility] LIC# [id number] BASOS 1.5 0.0 - 1.5 % [facility] LIC# [id number] % IMMATURE GRANS 0.1 0.0 - 1.0 % [facility] LIC# [id number] ABSOLUTE NEUTS 2.39 1.92 - 7.60 K/uL [facility] LIC# [id number] ABSOLUTE LYMPHS 4.45(H) 0.72 - 4.10 K/uL [facility] LIC# [id number] ABSOLUTE MONOS 0.58 0.16 - 1.10 K/uL [facility] LIC# [id number] ABSOLUTE EOS 0.53(H) 0.00 - 0.50 K/uL [facility] LIC# [id number] ABSOLUTE BASOS 0.12 0.00 - 0.15 K/uL [facility] LIC# [id number] ABS IMMATURE GRANS 0.01 0.00 - 0.10 K/uL [facility] LIC# [id number] Blood 03/03/2025 1:33 PM EDT 03/03/2025 1:48 PM EDT us Owen Quan MD LAB BLOOD ORDERABLES Final Result [facility] LIC# [id number] [address] [place] [address] * ENDOSCOPY PROCEDURE (02/24/2025 3:39 PM EDT) 02/24/2025 3:39 PM EDT Narrative Transcriptions Katia Handy MBBS, MPH - 02/24/2025 3:39 PM EDT [facility] Gastroenterology Patient Name: Hernan Sharpe Procedure Date: 02/24/2025 3:39 PM Date of : 1960 Admit Type: Outpatient Age: 64 Room: 4 Gender: Male Note Status: Finalized Attending MD: KATIA HANDY MD, Instrument Name: [id number] Procedure: Upper GI endoscopy Indications: Abdominal pain Providers: KATIA HANDY MD, Cele Hooper RN Referring MD: BRENT BLISS MD (Referring MD) Medicines: Fentanyl 100 micrograms IV, Midazolam 4 mg IV Complications: No immediate complications. Procedure: After informed consent was obtained, the endoscope was passed under direct vision. Throughout the procedure, the patient's blood pressure, pulse, and oxygen saturations were monitored continuously. The Endoscope was introduced through the mouth, and advanced to the third part of duodenum. The upper GI endoscopy was accomplished without difficulty. The patient tolerated the procedure well. Findings: A medium-sized hiatal hernia was present. LA Grade C (one or more mucosal breaks continuous between tops of 2 or more mucosal folds, less than 75% circumference) esophagitis was found. Patchy glycogenic acanthosis was found in the middle third of the esophagus. Biopsies were taken with a cold forceps for histology. Nodular mucosa was found in the entire examined stomach. Biopsies were taken with a cold forceps for histology. The examined duodenum was normal. Biopsies were taken with a cold forceps for histology. A few 1 mm sessile polyps with no bleeding were found in the duodenal bulb. Biopsies were taken with a cold forceps for histology. Impression: - Medium-sized hiatal hernia. - LA Grade C reflux esophagitis. - Glycogenic acanthosis of the esophagus. Biopsied. - Nodular mucosa in the entire stomach. Biopsied. - Normal examined duodenum. Biopsied. - A few duodenal polyps. Biopsied. Moderate Sedation: Moderate (conscious) sedation was administered by the nurse and supervised by the endoscopist. The following parameters were monitored: oxygen saturation, heart rate, blood pressure, and response to care. I was personally present throughout the entire procedure. I was present from the first injection of medication for sedation and continuously for the administration and monitoring of sedation. The patient's sedation level was moderate. The patient's post-sedation status at the end of the procedure was stable, total sedation time was 21 minutes Recommendation: - Await pathology results. - Use Prilosec (omeprazole) 20 mg PO BID for 12 weeks. - Repeat upper endoscopy in 12 weeks. Katia Handy MD [id number] KATIA HANDY MD 02/24/2025 4:38:40 PM Number of Addenda: 0 Note Initiated On: 02/24/2025 3:39 PM Brent Bliss MD GI PROCEDURE ORDERABLES Final Result * Anatomic Pathology (02/24/2025 12:00 AM EDT) 02/24/2025 02/25/2025 [facility] - 03/05/2025 5:22 PM EDT CASE: [id number] PATIENT: HERNAN SROKA Date: 1960 Sex: Male [facility] Department of Pathology [address] [place] [address] License No.: [id number] [place] Worker: Dr. Lamont Tam M.D., Ph.D. Physician: SHAHAB FOSS, MPH Procedure Date: 02/24/2025 Resident: Rodrick Albarado MD Pathologist: Zachariah Gutierrez M.D., Ph.D. PATHOLOGIC DIAGNOSIS: A. DUODENAL BIOPSY: Chronic duodenitis. B. DUODENAL BULB POLYP: Polypoid peptic duodenopathy. Multiple levels examined. C. GASTRIC ANTRUM BIOPSY: Antral and corpus mucosa with mild chronic inactive gastritis. No intestinal metaplasia identified. No Helicobacter pylori seen on H&E stain. D. GASTRIC BODY BIOPSY: Corpus mucosa with mild chronic inactive gastritis. No intestinal metaplasia identified. No Helicobacter pylori seen on H&E stain. E. MID ESOPHAGUS BIOPSY: Squamous mucosa within normal limits. CLINICAL DATA: History: Epigastric pain. Operation: Esophagogastroduodenoscopy. TISSUE SUBMITTED: A/1. Duodenal biopsy B/2. Duodenal bulb polyp C/3. Gastric antrum biopsy D/4. Gastric body biopsy E/5. Mid esophagus biopsy GROSS DESCRIPTION: The specimen is received in 5 parts, each labeled with the patient's name and medical record number. Part A received in formalin labeled Duodenal biopsy consists of multiple fragments of irregular pineda-pink soft tissue (ranging 0.3-0.5 cm in greatest dimension). The specimen is submitted in toto. A1: Multiple fragments. Part B received in formalin labeled Duodenal bulb polyp consists of 1 fragment of irregular pineda-pink soft tissue (0.4 cm in greatest dimension). The specimen is submitted in toto. B1: 1 fragment. Part C received in formalin labeled Gastric antrum biopsy consists of 4 fragments of irregular pineda-pink soft tissue (ranging 0.3-0.5 cm in greatest dimension). The specimen is submitted in toto. C1: 4 fragments. Part D received in formalin labeled Gastric body biopsy consists of 2 fragments of irregular pineda-pink soft tissue (0.4 and 0.6 cm in greatest dimension). The specimen is submitted in toto. D1: 2 fragments. Part E received in formalin labeled Mid esophagus biopsy consists of 2 fragments of irregular pineda-pink soft tissue (0.2 and 0.6 cm in greatest dimension). The specimen is submitted in toto. E1: 2 fragments. Dictated by: Laura Guadarrama By his/her signature below, the senior physician certifies that he/she personally conducted a microscopic examination ( gross only exam if so stated) of the described specimen(s) and rendered or confirmed the diagnosis(es) related thereto. Final Diagnosis by Zachariah Gutierrez M.D., Ph.D., Electronically signed on Wednesday March 05, 2025 at 05:21:59PM us Katia GUDINO, MPH PATHOLOGY ORDERABLES Fin al Result [facility] [address] [place] [address] * Hepatitis C antibody, qualitative (09/02/2024 3:14 PM EST) HCV Nonreactive Nonreactive [facility] LIC# [id number] Comment:Antibodies to HCV no t detected. Does not exclude the possibility of exposure to HCV. Blood 09/02/2024 3:14 PM EST 09/02/2024 3:19 PM EST us Lance Coles MD, PhD LAB BLOOD ORDERABLES Final R esult Performing Organization Address City/[facility] Co de Phone Number [facility] LIC# [id number] [address] [place] [address] from Last 3 Months or Most Recently Relevant to Health Maintenance [place] [address] [place] [id number] OUT OF [facility] PPO BLUE CROSS OUT OF STATE PPO Care Teams Clerical Support Relationship Specialty Start Date End Date Brent Bliss MD [address] [place] [phone] PCP - General Internal Medicine 02/21/20 Owen Quan MD [facility] [place] [address] [email or web address] Medical Oncology 09/24/21 Additional Source Comments The information contained in this document represents components of the legal health record. It is not the complete legal health record.[facility]
--- OUTSIDE RECORDS SUMMARY | 2025-05-06 07:14 | XMS_ITS | Encounter Summary ---
Author Organization [employer] [facility] Address [facility] [employer] [facility] [address] [place] [address] Phone Care Team Providers Care Door And Arrival Attendant Name Role Phone Unknown, Unknown Primary Care Provider Flower Moncada MD Primary Care Provider [phone] Owen Quan MD Unavailable [phone] Encounter Details Date Type Department Care Team (Late st Contact Info) Description 12/05/2015 Transcribe Orders [address] [address] Jonathan Ulloa [address] [place] [address] [email or web address] Social History Tobacco Use Types Packs/Day Years Used Date Smoking Tobacco: Never Sex and Gender Information Value Date Recorded Sex Assigned at Not on file Legal Sex Male 5:10 PM EST Gender Identity Not on file Sexual Orientation Not on file documented as of this encounter Plan of Treatment Upcoming Encounters Date Type Department Care Team (Latest Contact Info) Description 06/23/2025 Procedure Pass [facility] Endoscopy Department [address] [place] [address] 06/23/2025 4:00 PM EST Hospital Encounter [facility] Endoscopy Department [address] [place] [address] Catherine Caceres MBBS, MPH [address] [place] [address] POLLO@[facility] 06/23/2025 4:00 PM EST - 06/23/2025 4:45 PM EST Surgery [facility] Endoscopy Department [address] [place] [address] Catherine Caceres MBBS, MPH [address] [place] [address] POLLO@[facility] ESOPHAGOGASTRODUODENOSCOPY 09/08/2025 3:30 PM EST Blood Draw Laboratory Services, [address], 2nd [place] [address] Lance Coles MD, PhD [address] [place] [address] [place] [address] Marcial@[facility] 09/08/2025 4:30 PM EST Office Visit [facility], Division of Hematologic Oncology, [address], [address] [place] [address] Lance Coles MD, PhD [address] [place] [address] [place] [address] Marcial@[facility] Scheduled Procedures Name Priority Associated Diagnoses Date/Ti me ESOPHAGOGASTRODUODENOSCOPY Esophagitis 06/23/2025 4:00 PM EST documented as of this encounter Results * XR Chest Outside (No Interpretation) (12/05/2015 12:15 AM EDT) N[facility]ative [facility] - 12/05/2015 11:55 AM EDT This study is for PACS storage only and not for interpretation. us Jairo Griffith MD, MS IMG OUTSIDE IMAGING W/OUT INTERPRETATION Final Result [facility] * XR Chest Outside (No Interpretation) (12/05/2015 12:00 AM EDT) Narrative [facility] - 12/05/2015 11:55 AM EDT This study is for PACS storage only and not for interpretation. us Jairo Griffith MD, MS IMG OUTSIDE IMAGING W/OUT INTERPRETATION Final Result [facility] documented in this encounter Visit Diagnoses Not on filedocumented in this encounter Care Teams Door And Arrival Attendant Relationship Specialty Start Date End Date Unknown, Unknown, MD PCP - General 08/06/15 02/20/20 Flower Bliss MD [address] [facility] [place] [address] PCP - General Internal Medicine 02/21/20 Owen Quan MD [address] [facility] [place] [address] Laureano@[email or web address] Medical Oncology 09/24/21 documented as of this encounter Additional Source Comments The information contained in this document represents components of the legal health record. It is not the complete legal health record.[facility]
--- OUTSIDE RECORDS SUMMARY | 2025-05-06 07:14 | XMS_ITS | Encounter Summary ---
Author Organization [employer] [facility] Address [address] [place] [address] Phone Care Team Providers Care Train Clerk Name Role Phone Flower Bliss MD Primary Care Provider [phone] Owen Quan MD Unavailable [phone] Encounter Details Date Type Department Care Team (Late st Contact Info) Description 01/13/2023 Procedure Pass [facility], Ct Scan - [address] [address] Social History Tobacco Use Types Packs/Day Years [...] (Latest Contact Info) Description 06/23/2025 Procedure Pass [facility] Endoscopy Department [address] [place] [address] 06/23/2025 4:00 PM EST Hospital Encounter [facility] Endoscopy Department [address] [place] [address] Catherine Caceres MBBS, MPH [address] [place] [address] YOSHICHRISTOPHER@[facility] 06/23/2025 4:00 PM EST - 06/23/2025 4:45 PM EST Surgery [facility] Endoscopy Department [address] [place] [address] Catherine Caceres MBBS, MPH [address] [place] [address] POLLO@[facility] ESOPHAGOGASTRODUODENOSCOPY 09/08/2025 3:30 PM EST Blood Draw Laboratory Services, [address], 2nd [place] [address] Lance Coles MD, PhD [address] [place], [place] [address] [place] [address] Marcial@[facility] 09/08/2025 4:30 PM EST Office Visit [facility] for [facility], Division of Hematologic Oncology, [address], [address] [place] [address] Lance Coles MD, PhD [address] [place] [address] [place] [address] Marcial@[facility] Scheduled Procedures Name Priority Associated Diagnoses Date/Ti me ESOPHAGOGASTRODUODENOSCOPY Esophagitis 06/23/2025 4:00 PM EST documented as of this encounter Visit Diagnoses Not on filedocumented in this encounter Care Teams Train Clerk Relationship Specialty Start Date End Date Flower Bliss MD [address] [facility] [place] [address] PCP - General Internal Medicine 02/21/20 Owen Quan MD [address] [place] [address] Laureano@[email or web address] Medical Oncology 09/24/21 documented as of this encounter Additional Source Comments The information contained in this document represents components of the legal health record. It is not the complete legal health record.[facility]
--- OUTSIDE RECORDS SUMMARY | 2025-05-06 07:14 | XMS_ITS | Encounter Summary ---
Author Organization [employer] [facility] Address [address] [place] [address] Phone Care Team Providers Care Tinter Photograph Name Role Phone Flower Bliss MD Primary Care Provider [phone] Owen Quan MD Unavailable [phone] Encounter Details Date Type Department Care Team (Late st Contact Info) Description 01/13/2023 Procedure Pass [facility], Ct Scan - [address] [address] Social History Tobacco Use Types Packs/Day Years [...] (Latest Contact Info) Description 06/23/2025 Procedure Pass [facility] Endoscopy Department [address] [place] [address] 06/23/2025 4:00 PM EST Hospital Encounter [facility] Endoscopy Department [address] [place] [address] Catherine Caceres MBBS, MPH [address] [place] [address] YOSHICHRISTOPHER@[facility] 06/23/2025 4:00 PM EST - 06/23/2025 4:45 PM EST Surgery [facility] Endoscopy Department [address] [place] [address] Catherine Caceres MBBS, MPH [address] [place] [address] POLLO@[facility] ESOPHAGOGASTRODUODENOSCOPY 09/08/2025 3:30 PM EST Blood Draw Laboratory Services, [address], 2nd [place] [address] Lance Coles MD, PhD [address] [place], [place] [address] [place] [address] Marcial@[facility] 09/08/2025 4:30 PM EST Office Visit [facility] for [facility], Division of Hematologic Oncology, [address], [address] [place] [address] Lance Coles MD, PhD [address] [place] [address] [place] [address] Marcial@[facility] Scheduled Procedures Name Priority Associated Diagnoses Date/Ti me ESOPHAGOGASTRODUODENOSCOPY Esophagitis 06/23/2025 4:00 PM EST documented as of this encounter Visit Diagnoses Not on filedocumented in this encounter Care Teams Tinter Photograph Relationship Specialty Start Date End Date Flower Bliss MD [address] [facility] [place] [address] PCP - General Internal Medicine 02/21/20 Owen Quan MD [address] [place] [address] Laureano@[email or web address] Medical Oncology 09/24/21 documented as of this encounter Additional Source Comments The information contained in this document represents components of the legal health record. It is not the complete legal health record.[facility]
--- OUTSIDE RECORDS SUMMARY | 2025-05-06 07:14 | XMS_ITS | Encounter Summary ---
Author Organization [employer] [facility] Address [address] [place] [address] Phone Care Team Providers Care Electric Motor Repair Supervisor Name Role Phone Flower Bliss MD Primary Care Provider [phone] Owen Quan MD Unavailable [phone] Encounter Details Date Type Department Care Team (Late st Contact Info) Description 07/26/2021 Procedure Pass [facility] Cross Sectional Interventional Radiology [address] [place] [address] Social History Tobacco Use Types Packs/Day Years Used Date Smoking Tobacco: Never Alcohol Use Standard Drinks/Week Comments Not Asked 0 (1 standard drink = 0.6 oz pur e alcohol) Sex and Gender Information Value Date Recorded Sex Assigned at Not on file Legal Sex Male 5:10 PM EST Gender Identity Not on file Sexual Orientation Not on file documented as of this encounter Plan of Treatment Upcoming Encounters Date Type Department Care Team (Latest Contact Info) Description 06/23/2025 Procedure Pass [facility] Endoscopy Department [address] [place] [address] 06/23/2025 4:00 PM EST Hospital Encounter [facility] Endoscopy Department [address] [place] [address] Catherine Caceres MBBS, MPH [address] [place] [address] POLLO@[facility] 06/23/2025 4:00 PM EST - 06/23/2025 4:45 PM EST Surgery [facility] Endoscopy Department [address] [place] [address] Catherine Caceres MBBS, MPH [address] [place] [address] POLLO@[facility] ESOPHAGOGASTRODUODENOSCOPY 09/08/2025 3:30 PM EST Blood Draw Laboratory Services, [address], 2nd [place] [address] Lance Coles MD, PhD [address] [place] [place] [address]#[address] [place] [address] Marcial@[facility] 09/08/2025 4:30 PM EST Office Visit [facility] for [facility], Division of Hematologic Oncology, [address], 7th [place] [address] Lance Coles MD, PhD [address] [place], [place] [address] [place] [address] Marcial@[facility] Scheduled Procedures Name Priority Associated Diagnoses Date/Ti me ESOPHAGOGASTRODUODENOSCOPY Esophagitis 06/23/2025 4:00 PM EST documented as of this encounter Visit Diagnoses Not on filedocumented in this encounter Care Teams Electric Motor Repair Supervisor Relationship Specialty Start Date End Date Flower Bliss MD [address] [facility] [place] [address] PCP - General Internal Medicine 02/21/20 Owen Quan MD [address] [place] [address] Laureano@[facility] Medical Oncology 09/24/21 documented as of this encounter Additional Source Comments The information contained in this document represents components of the legal health record. It is not the complete legal health record.[facility]
--- OUTSIDE RECORDS SUMMARY | 2025-05-06 07:14 | XMS_ITS | Encounter Summary ---
Author Organization [employer] [facility] Address [address] [facility] [address] [place] [address] Phone Care Team Providers Care Kosher Inspector Name Role Phone Flower Bliss MD Primary Care Provider [phone] Owen Quan MD Unavailable [phone] Encounter Details Date Type Department Care Team (Late st Contact Info) Description 02/24/2025 Procedure Pass [facility] Endoscopy Department [address] [place] [address] Social History Tobacco Use Types Packs/Day Years [...] (Latest Contact Info) Description 06/23/2025 Procedure Pass [facility] Endoscopy Department [address] [place] [address] 06/23/2025 4:00 PM EST Hospital Encounter [facility] Endoscopy Department [address] [place] [address] Catherine Caceres MBBS, MPH [address] [place] [address] POLLO@[facility] 06/23/2025 4:00 PM EST - 06/23/2025 4:45 PM EST Surgery [facility] Endoscopy Department [address] [place] [address] Catherine Caceres MBBS, MPH [address] [place] [address] POLLO@[facility] ESOPHAGOGASTRODUODENOSCOPY 09/08/2025 3:30 PM EST Blood Draw Laboratory Services, [address], 2nd [place] [address] Lance Coles MD, PhD [address] [place], [place] [address] [place] [address] Marcial@[facility] 09/08/2025 4:30 PM EST Office Visit [facility] for Lymphoma, Division of Hematologic Oncology, [address], 7[address] [place] [address] Lance Coles MD, PhD [address] [place], [place] [address] [place] [address] Marcial@[facility] Scheduled Procedures Name Priority Associated Diagnoses Date/Ti me ESOPHAGOGASTRODUODENOSCOPY Esophagitis 06/23/2025 4:00 PM EST documented as of this encounter Visit Diagnoses Not on filedocumented in this encounter Care Teams Kosher Inspector Relationship Specialty Start Date End Date Flower Bliss MD [address] [place] [address] PCP - General Internal Medicine 02/21/20 Owen Quan MD [address] [place] [address] Laureano@[facility] Medical Oncology 09/24/21 documented as of this encounter Additional Source Comments The information contained in this document represents components of the legal health record. It is not the complete legal health record.[facility]
--- OUTSIDE RECORDS SUMMARY | 2025-05-06 07:14 | XMS_ITS | Encounter Summary ---
Author Organization [employer] [facility] Address [address] [place] [address] Phone Care Team Providers Care Logistics Planning Manager Name Role Phone Unknown, Unknown Primary Care Provider Flower Moncada MD Primary Care Provider [phone] Owen Quan MD Unavailable [phone] Encounter Details Date Type Department Care Team (Late st Contact Info) Description 12/13/2018 Transcribe Orders [facility] [address] [place] [address] Jeri Carrasco [address] [place] [address] [email or web address] [facility] Social History Tobacco Use Types Packs/Day Years [...] (Latest Contact Info) Description 06/23/2025 Procedure Pass [facility] Endoscopy Department [address] [place] [address] 06/23/2025 4:00 PM EST Hospital Encounter [facility] Endoscopy Department [address] [place] [address] Catherine Caceres MBBS, MPH [address] [place] [address] POLLO@[facility] 06/23/2025 4:00 PM EST - 06/23/2025 4:45 PM EST Surgery [facility] Endoscopy Department [address] [place] [address] Catherine Caceres MBBS, MPH [address] [place] [address] POLLO@[facility] ESOPHAGOGASTRODUODENOSCOPY 09/08/2025 3:30 PM EST Blood Draw Laboratory Services, [address], 2nd [place] [address] Lance Coles MD, PhD [address] [place], [place] [address] [place] [address] Marcial@[facility] 09/08/2025 4:30 PM EST Office Visit Center for Lymphoma, Division of Hematologic Oncology, [address], [address] [place] [address] Lance Coles MD, PhD [address] [place], [place] [address] [place] [address] Marcial@[facility] Scheduled Procedures Name Priority Associated Diagnoses Date/Ti la ESOPHAGOGASTRODUODENOSCOPY Esophagitis 06/23/2025 4:00 PM EST documented as of this encounter Results * XR Chest Outside (No Interpretation) (12/13/2018 12:19 PM EDT) Narrative [facility] - 12/13/2018 12:19 PM EDT This study is for PACS storage only and not for interpretation. us Jairo Griffith MD, MS IMG OUTSIDE IMAGING W/OUT INTERPRETATION Final Result [facility] * US Abdomen Outside (No Interpretation) (12/13/2018 12:19 PM EDT) Narrative [facility] - 12/13/2018 12:19 PM EDT This study is for PACS storage only and not for interpretation. us Jairo Griffith MD, MS IMG OUTSIDE IMAGING W/OUT INTERPRETATION Final Result [facility] documented in this encounter Visit Diagnoses Not on filedocumented in this encounter Care Teams Logistics Planning Manager Relationship Specialty Start Date End Date Unknown, Unknown, MD PCP - General 08/06/15 02/20/20 Flower Bliss MD [address] [place] [address] [place] [address] PCP - General Internal Medicine 02/21/20 Owen Quan MD [address] [place] [address] Owen_[email or web address] Medical Oncology 09/24/21 documented as of this encounter Additional Source Comments The information contained in this document represents components of the legal health record. It is not the complete legal health record.[facility]
--- OUTSIDE RECORDS SUMMARY | 2025-05-06 07:14 | XMS_ITS | Encounter Summary ---
Author Organization [employer] [facility] Address [address] [facility] [address] [place] [address] Phone Care Team Providers Care Paid Search Marketing Strategist Name Role Phone Flower Bliss MD Primary Care Provider [phone] Owen Quan MD Unavailable [phone] Encounter Details Date Type Department Care Team (Late st Contact Info) Description 10/09/2022 Procedure Pass [facility], Ct Scan - [address] [address] Social History Tobacco Use Types Packs/Day Years [...] (Latest Contact Info) Description 06/23/2025 Procedure Pass [facility] Endoscopy Department [address] [place] [address] 06/23/2025 4:00 PM EST Hospital Encounter [facility] Endoscopy Department [address] [place] [address] Catherine Caceres MBBS, MPH [address] [place] [address] POLLO@[facility] 06/23/2025 4:00 PM EST - 06/23/2025 4:45 PM EST Surgery [facility] Endoscopy Department [address] [place] [address] Catherine Caceres MBBS, MPH [address] [place] [address] POLLO@[facility] ESOPHAGOGASTRODUODENOSCOPY 09/08/2025 3:30 PM EST Blood Draw Laboratory Services, [address] 2nd [place] [address] Lance Coles MD, PhD [address] [place], [place] [address] [place] [address] Marcial@[email or web address] 09/08/2025 4:30 PM EST Office Visit Center for Lymphoma, Division of Hematologic Oncology, [address], [address] [place] [address] Lance Coles MD, PhD [address] [place], [place] [address] [place] [address] Marcial@[facility] Scheduled Procedures Name Priority Associated Diagnoses Date/Ti me ESOPHAGOGASTRODUODENOSCOPY Esophagitis 06/23/2025 4:00 PM EST documented as of this encounter Visit Diagnoses Not on filedocumented in this encounter Care Teams Paid Search Marketing Strategist Relationship Specialty Start Date End Date Flower Bliss MD [address] [facility] [place] [address] PCP - General Internal Medicine 02/21/20 Owen Quan MD [address] [place] [address] Laureano@[facility] Medical Oncology 09/24/21 documented as of this encounter Additional Source Comments The information contained in this document represents components of the legal health record. It is not the complete legal health record.[facility]
--- OUTSIDE RECORDS SUMMARY | 2025-05-06 07:14 | XMS_ITS | Encounter Summary ---
Author Organization [employer] [facility] Address [address] [place] [address] Phone Care Team Providers Care Grinder Set Up Operator Surface Name Role Phone Flower Bliss MD Primary Care Provider [phone] Owen Quan MD Unavailable [phone] Encounter Details Date Type Department Care Team (Late st Contact Info) Description 07/12/2024 Procedure Pass [facility], Ct Scan - [address] [address] Social History Tobacco Use Types Packs/Day Years [...] (Latest Contact Info) Description 06/23/[address] [facility] Endoscopy Department [address] [place] [address] 06/23/2025 4:00 PM EST Hospital Encounter [facility] Endoscopy Department [address] [place] [address] Catherine Caceres MBBS, MPH [address] [place] [address] YOSHICHRISTOPHER@[facility] 06/23/2025 4:00 PM EST - 06/23/2025 4:[address] [facility] Endoscopy Department [address] [place] [address] Catherine Caceres MBBS, MPH [address] [place] [address] POLLO@[facility] ESOPHAGOGASTRODUODENOSCOPY 09/08/2025 3:30 PM EST Blood Draw Laboratory Services, [address], 2nd [place] [address] Lance Coles MD, PhD [address] [place], [place] [address] [place] [address] Marcial@[facility] 09/08/2025 4:30 PM EST Office Visit Center for Lymphoma, Division of Hematologic Oncology, [address], [address] [place] [address] Lance Coles MD, PhD [address] [place] [address] [place] [address] Marcial@[facility] Scheduled Procedures Name Priority Associated Diagnoses Date/Ti me ESOPHAGOGASTRODUODENOSCOPY Esophagitis 06/23/2025 4:00 PM EST documented as of this encounter Visit Diagnoses Not on filedocumented in this encounter Care Teams Grinder Set Up Operator Surface Relationship Specialty Start Date End Date Flower Bliss MD [address] [facility] [address] PCP - General Internal Medicine 02/21/20 Owen Quan MD [address] [place] [address] Laureano@[facility] Medical Oncology 09/24/21 documented as of this encounter Additional Source Comments The information contained in this document represents components of the legal health record. It is not the complete legal health record.[facility]
--- OUTSIDE RECORDS SUMMARY | 2025-05-06 07:14 | XMS_ITS | Encounter Summary ---
Author Organization [employer] [facility] Address [address] [place] [address] Phone Care Team Providers Care Payment Collector Name Role Phone Flower Bliss MD Primary Care Provider [phone] Owen Quan MD Unavailable [phone] Encounter Details Date Type Department Care Team (Late st Contact Info) Description 07/12/2024 Procedure Pass [facility], Ct Scan - [address] [address] Social History Tobacco Use Types Packs/Day Years [...] (Latest Contact Info) Description 06/23/2025 Procedure Pass [facility] Endoscopy Department [address] [place] [address] 06/23/2025 4:00 PM EST Hospital Encounter [facility] Endoscopy Department [address] [place] [address] Catherine Caceres MBBS, MPH [address] [place] [address] [email or web address]@[facility] 06/23/2025 4:00 PM EST - 06/23/2025 4:45 PM EST Surgery [facility] Endoscopy Department [address] [place] [address] Catherine Caceres MBBS, MPH [address] [place] [address] POLLO@[facility] ESOPHAGOGASTRODUODENOSCOPY 09/08/2025 3:30 PM EST Blood Draw Laboratory Services, [address], 2nd [place] [address] Lance Coles MD, PhD [address] [place], [place] [address] [place] [address] Marcial@[facility] 09/08/2025 4:30 PM EST Office Visit [facility], Division of Hematologic Oncology, [address], 7th [place] [address] Lance Coles MD, PhD [address] [place] [address] [place] [address] Marcial@[facility] Scheduled Procedures Name Priority Associated Diagnoses Date/Ti me ESOPHAGOGASTRODUODENOSCOPY Esophagitis 06/23/2025 4:00 PM EST documented as of this encounter Visit Diagnoses Not on filedocumented in this encounter Care Teams Payment Collector Relationship Specialty Start Date End Date Flower Bliss MD [address] [facility] [address] PCP - General Internal Medicine 02/21/20 Owen Quan MD [address] [place] [address] Laureano@[facility] Medical Oncology 09/24/21 documented as of this encounter Additional Source Comments The information contained in this document represents components of the legal health record. It is not the complete legal health record.[facility]
--- OUTSIDE RECORDS SUMMARY | 2025-05-06 07:14 | XMS_ITS | Encounter Summary ---
Author Organization [employer] [facility] Address [address] [place] [address] [place] [address] Phone Care Team Providers Care Operating Room Assistant Name Role Phone Flower Bliss MD Primary Care Provider [phone] Owen Quan MD Unavailable [phone] Encounter Details Date Type Department Care Team (Late st Contact Info) Description 10/09/2022 Procedure Pass [facility], Ct Scan - [address] [address] Social History Tobacco Use Types Packs/Day Years [...] (Latest Contact Info) Description 06/23/2025 Procedure Pass [facility] Endoscopy Department [address] [place] [address] 06/23/2025 4:00 PM EST Hospital Encounter [facility] Endoscopy Department [address] [place] [address] Catherine Caceres MBBS, MPH [address] [place] [address] POLLO@[facility] 06/23/2025 4:00 PM EST - 06/23/2025 4:45 PM EST Surgery [facility] Endoscopy Department [address] [place] [address] Catherine Caceres MBBS, MPH [address] [place] [address] POLLO@[facility] ESOPHAGOGASTRODUODENOSCOPY 09/08/2025 3:30 PM EST Blood Draw Laboratory Services, [address], 2nd [place] [address] Lance Coles MD, PhD [address] [place], [place] [address] [place] [address] Marcial@[facility] 09/08/2025 4:30 PM EST Office Visit [facility], Division of Hematologic Oncology, [address], [address] [place] [address] Lanec Coles MD, PhD [address] [place], [place] [address] [place] [address] Marcial@[facility] Scheduled Procedures Name Priority Associated Diagnoses Date/Ti me ESOPHAGOGASTRODUODENOSCOPY Esophagitis 06/23/2025 4:00 PM EST documented as of this encounter Visit Diagnoses Not on filedocumented in this encounter Care Teams Operating Room Assistant Relationship Specialty Start Date End Date Flower Bliss MD [address] [place] [address] PCP - General Internal Medicine 02/21/20 Owen Quan MD [address] [place] [address] Laureano@[facility] Medical Oncology 09/24/21 documented as of this encounter Additional Source Comments The information contained in this document represents components of the legal health record. It is not the complete legal health record.[facility]
--- OUTSIDE RECORDS SUMMARY | 2025-05-06 07:14 | XMS_ITS | Encounter Summary ---
Author Organization [employer] [facility] Address [address] [place] [address] Phone Care Team Providers Care Entry Level Automotive Technician Name Role Phone Flower Bliss MD Primary Care Provider [phone] Oewn Quan MD Unavailable [phone] Reason for Visit * Reason Onset Date Comments Dr Caceres/patient advise 03/17/2025 Encounter Details Date Type Department Care Team (Late st Contact Info) Description 03/17/2025 Telephone [facility] Specialties [address] [address] Catherine Caceres MBBS, MPH [address] [place] [address] POLLO@[email or web address] Dr Caceres/patient advise Social History Tobacco Use Types Packs/Day Years [...] on file documented as of this encounter Progress Notes * Elis Zavala - 03/17/2025 9:08 AM EDT Patient had an endoscopy last month and told patient he needs a repeat endo in few months. Patient's oncologist told him that Dr Caceres needs to put in an order for repeat endoscopy. Patient would like to confirm Thank you documented in this encounter Plan of Treatment Upcoming Encounters Date Type Department Care Team (Latest Contact Info) Description 06/23/2025 Procedure Pass [facility] Endoscopy Department [address] [place] [address] 06/23/2025 4:00 PM EST Hospital Encounter [facility] Endoscopy Department [address] [place] [address] Catherine Caceres MBBS, MPH [address] [place] [address] POLLO@[email or web address] 06/23/2025 4:00 PM EST - 06/23/2025 4:45 PM EST Surgery [facility] Endoscopy Department [address] [place] [address] Catherine Caceres MBBS, MPH [address] [place] [address] POLLO@[facility] ESOPHAGOGASTRODUODENOSCOPY 09/08/2025 3:30 PM EST Blood Draw Laboratory Services, [facility] [address] [facility], 2nd [place] [address] Lance Coles MD, PhD [address] [place] [address] [place] [address] Marcial@[facility] 09/08/2025 4:30 PM EST Office Visit [facility] for [facility], Division of Hematologic Oncology, [facility] [address] [facility], 7th [place] [address] Lance Coles MD, PhD [address] [place] [address] [place] [address] Marcial@[facility] Scheduled Procedures Name Priority Associated Diagnoses Date/Ti me ESOPHAGOGASTRODUODENOSCOPY Esophagitis 06/23/2025 4:00 PM EST documented as of this encounter Visit Diagnoses Not on filedocumented in this encounter Care Teams Entry Level Automotive Technician Relationship Specialty Start Date End Date Flower Bliss MD [address] [facility] [place] [address] PCP - General Internal Medicine 02/21/20 Owen Quan MD [address] [place] [address] [email or web address] Medical Oncology 09/24/21 documented as of this encounter Additional Source Comments The information contained in this document represents components of the legal health record. It is not the complete legal health record.[facility]
--- OUTSIDE RECORDS SUMMARY | 2025-05-06 07:14 | XMS_ITS | Encounter Summary ---
Author Organization [employer] [facility] Address [address] [facility] [address] [place] [address] Phone Care Team Providers Care Erosion Control Coordinator Name Role Phone Unknown, Unknown Primary Care Provider Flower Moncada MD Primary Care Provider [phone] Owen Quan MD Unavailable [phone] Encounter Details Date Type Department Care Team (Late st Contact Info) Description 11/15/2015 Transcribe Orders [facility] [address] [place] [address] Jeri Carrasco [address] [place] [address] [email or web address] [facility] Social History Tobacco Use Types Packs/Day Years Used Date Smoking Tobacco: Never Sex and Gender Information Value Date Recorded Sex Assigned at Not on file Legal Sex Male 5:10 PM EST Gender Identity Not on file Sexual Orientation Not on file documented as of this encounter Plan of Treatment Upcoming Encounters Date Type Department Care Team (Latest Contact Info) Description 06/23/2025 Procedure Pass [facility] Endoscopy Department [address] [place] [address] 06/23/2025 4:00 PM EST Hospital Encounter [facility] Endoscopy Department [address] [place] [address] Catherine Caceres MBBS, MPH [address] [place] [address] POLLO@[facility] 06/23/2025 4:00 PM EST - 06/23/2025 4:45 PM EST Surgery [facility] Endoscopy Department [address] [place] [address] Catherine Caceres MBBS, MPH [address] [place] [address] POLLO@[facility] ESOPHAGOGASTRODUODENOSCOPY 09/08/2025 3:30 PM EST Blood Draw Laboratory Services, [address], 2nd [place] [address] Lance Coles MD, PhD [address] [place] [address] [place] [address] Marcial@[facility] 09/08/2025 4:30 PM EST Office Visit [facility] for [facility], Division of Hematologic Oncology, [address], 7th [place] [address] Lance Coles MD, PhD [address] [place] [address] [place] [address] Marcial@[facility] Scheduled Procedures Name Priority Associated Diagnoses Date/Ti me ESOPHAGOGASTRODUODENOSCOPY Esophagitis 06/23/2025 4:00 PM EST documented as of this encounter Results * MRI Abdomen Outside (No Interpretation) (11/30/2015 12:00 AM EDT) Narrative [facility] - 11/30/2015 3:13 PM EDT This study is for PACS storage only and not for interpretation. us Jairo Griffith MD, MS IMG OUTSIDE IMAGING W/OUT INTERPRETATION Final Result KEIRY_[facility] documented in this encounter Visit Diagnoses Not on filedocumented in this encounter Care Teams Erosion Control Coordinator Relationship Specialty Start Date End Date Unknown, Unknown, MD PCP - General 08/06/15 02/20/20 Flower Bliss MD [address] [place] [address] PCP - General Internal Medicine 02/21/20 Owen Quan MD [address] [place] [address] Laureano@[email or web address] Medical Oncology 09/24/21 documented as of this encounter Additional Source Comments The information contained in this document represents components of the legal health record. It is not the complete legal health record.[facility]
--- OUTSIDE RECORDS SUMMARY | 2025-05-06 07:15 | XMS_ITS | Encounter Summary ---
Author Organization [employer] [facility] Address [address] [facility] [address] [place] [address] Phone Care Team Providers Care Stone Mill Operator Name Role Phone Flower Bliss MD Primary Care Provider [phone] Owen Quan MD Unavailable [phone] Encounter Details Date Type Department Care Team (Late st Contact Info) Description 12/24/2021 Procedure Pass [facility], Ct Scan - [address] [address] Social History Tobacco Use Types Packs/Day Years [...] (Latest Contact Info) Description 06/23/2025 Procedure Pass [facility] Endoscopy Department [address] [place] [address] 06/23/2025 4:00 PM EST Hospital Encounter [facility] Endoscopy Department [address] [place] [address] Catherine Caceres MBBS, MPH [address] [place] [address] POLLO@[facility] 06/23/2025 4:00 PM EST - 06/23/2025 4:45 PM EST Surgery [facility] Endoscopy Department [address] [place] [address] Catherine Caceres MBBS, MPH [address] [place] [address] POLLO@[facility] ESOPHAGOGASTRODUODENOSCOPY 09/08/2025 3:30 PM EST Blood Draw Laboratory Services, [address], 2nd [place] [address] Lance Coles MD, PhD [address] [place], [place] [address] [place] [address] Marcial@[facility] 09/08/2025 4:30 PM EST Office Visit [facility] for [facility], Division of Hematologic Oncology, [address], [address]th [place] [address] Lance Coles MD, PhD [address] [place], [place] [address] [place] [address] Marcial@[facility] Scheduled Procedures Name Priority Associated Diagnoses Date/Ti me ESOPHAGOGASTRODUODENOSCOPY Esophagitis 06/23/2025 4:00 PM EST documented as of this encounter Visit Diagnoses Not on filedocumented in this encounter Care Teams Stone Mill Operator Relationship Specialty Start Date End Date Flower Bliss MD [address] [facility] [address] PCP - General Internal Medicine 02/21/20 Owen Quan MD [address] [place] [address] Laureano@[facility] Medical Oncology 09/24/21 documented as of this encounter Additional Source Comments The information contained in this document represents components of the legal health record. It is not the complete legal health record.[facility]
--- OUTSIDE RECORDS SUMMARY | 2025-05-06 07:15 | XMS_ITS | Encounter Summary ---
Author Organization [employer] [facility] Address [address] [place] [address] Phone Care Team Providers Care Weed Cooking Operator Name Role Phone Flower Bliss MD Primary Care Provider [phone] Owen Quan MD Unavailable [phone] Encounter Details Date Type Department Care Team (Late st Contact Info) Description 09/07/2023 Procedure Pass [facility], Ct Scan - [address] [address] Social History Tobacco Use Types Packs/Day Years [...] (Latest Contact Info) Description 06/23/2025 Procedure Pass [facility] Endoscopy Department [address] [place] [address] 06/23/2025 4:00 PM EST Hospital Encounter [facility] Endoscopy Department [address] [place] [address] Catherine Caceres MBBS, MPH [address] [place] [address] YOSHICHRISTOPHER@[facility] 06/23/2025 4:00 PM EST - 06/23/2025 4:45 PM EST Surgery [facility] Endoscopy Department [address] [place] [address] Catherine Caceres MBBS, MPH [address] [place] [address] POLLO@[facility] ESOPHAGOGASTRODUODENOSCOPY 09/08/2025 3:30 PM EST Blood Draw Laboratory Services, [address], 2nd [place] [address] Lance Coles MD, PhD [address] [place], [place] [address] [place] [address] Marcial@[facility] 09/08/2025 4:30 PM EST Office Visit [facility], Division of Hematologic Oncology, [address], 7th [place] [address] Lance Coles MD, PhD [address] [place] [address] [place] [address] Marcial@[facility] Scheduled Procedures Name Priority Associated Diagnoses Date/Ti me ESOPHAGOGASTRODUODENOSCOPY Esophagitis 06/23/2025 4:00 PM EST documented as of this encounter Visit Diagnoses Not on filedocumented in this encounter Care Teams Weed Cooking Operator Relationship Specialty Start Date End Date Flower Bliss MD [address] [facility] [place] [address] PCP - General Internal Medicine 02/21/20 Owen Quan MD [address] [place] [address] Laureano@[facility] Medical Oncology 09/24/21 documented as of this encounter Additional Source Comments The information contained in this document represents components of the legal health record. It is not the complete legal health record.[facility]
--- OUTSIDE RECORDS SUMMARY | 2025-05-06 07:15 | XMS_ITS | Encounter Summary ---
Author Organization [employer] [facility] Address [address] [facility] [address] [place] [address] Phone Care Team Providers Care Motorcycle Repair Shop Supervisor Name Role Phone Flower Bliss MD Primary Care Provider [phone] Owen Quan MD Unavailable [phone] Encounter Details Date Type Department Care Team (Late st Contact Info) Description 12/24/2021 Procedure Pass [facility], Ct Scan - [address] [address] Social History Tobacco Use Types Packs/Day Years [...] (Latest Contact Info) Description 06/23/2025 Procedure Pass [facility] Endoscopy Department [address] [place] [address] 06/23/2025 4:00 PM EST Hospital Encounter [facility] Endoscopy Department [address] [place] [address] Catherine Caceres MBBS, MPH [address] [place] [address] POLLO@[facility] 06/23/2025 4:00 PM EST - 06/23/2025 4:45 PM EST Surgery [facility] Endoscopy Department [address] [place] [address] Catherine Caceres MBBS, MPH [address] [place] [address] POLLO@[facility] ESOPHAGOGASTRODUODENOSCOPY 09/08/2025 3:30 PM EST Blood Draw Laboratory Services, [address], 2nd [place] [address] Lance Coles MD, PhD [address] [place] [address] [place] [address] Marcial@[facility] 09/08/2025 4:30 PM EST Office Visit [facility] for [facility], Division of Hematologic Oncology, [address], [address] [place] [address] Lance Coles MD, PhD [address] [place], [place] [address] [place] [address] Marcial@[facility] Scheduled Procedures Name Priority Associated Diagnoses Date/Ti me ESOPHAGOGASTRODUODENOSCOPY Esophagitis 06/23/2025 4:00 PM EST documented as of this encounter Visit Diagnoses Not on filedocumented in this encounter Care Teams Motorcycle Repair Shop Supervisor Relationship Specialty Start Date End Date Flower Bliss MD [address] [facility] [place] [address] PCP - General Internal Medicine 02/21/20 Owen Quan MD [address] [place] [address] Laureano@[facility] Medical Oncology 09/24/21 documented as of this encounter Additional Source Comments The information contained in this document represents components of the legal health record. It is not the complete legal health record.[facility]
--- OUTSIDE RECORDS SUMMARY | 2025-05-06 07:15 | XMS_ITS | Encounter Summary ---
Author Organization [facility] Address [address] [place] [address] Phone Care Team Providers Care Player Development Executive Name Role Phone Flower Bliss MD Primary Care Provider Owen Quan MD Unavailable [phone] Encounter Details Date Type Department Care Team (Late st Contact Info) Description 09/26/2021 Procedure Pass [facility] Periop [address] [place] [address] Social History Tobacco Use Types Packs/Day Years [...] (Latest Contact Info) Description 06/23/2025 Procedure Pass [facility] Endoscopy Department [address] [place] [address] 06/23/2025 4:00 PM EST Hospital Encounter [facility] Endoscopy Department [address] [place] [address] Catherine Caceres MBBS, MPH [address] [place] [address] POLLO@[email or web address] 06/23/2025 4:00 PM EST - 06/23/2025 4:45 PM EST Surgery [facility] Endoscopy Department [address] [place] [address] Catherine Caceres MBBS, MPH [address] [place] [address] POLLO@[facility] ESOPHAGOGASTRODUODENOSCOPY 09/08/2025 3:30 PM EST Blood Draw Laboratory Services, [address], 2nd [place] [address] Lance Coles MD, PhD [address] [place] [address] [place] [address] Marcial@[facility] 09/08/2025 4:30 PM EST Office Visit [facility] for Lymph[facility], Division of Hematologic Oncology, [address], [address] [place] [address] Lance Coles MD, PhD [address] [place] [address] [place] [address] Marcial@[facility] Scheduled Procedures Name Priority Associated Diagnoses Date/Ti me ESOPHAGOGASTRODUODENOSCOPY Esophagitis 06/23/2025 4:00 PM EST documented as of this encounter Visit Diagnoses Not on filedocumented in this encounter Care Teams Player Development Executive Relationship Specialty Start Date End Date Flower Bliss MD [address] [facility] [place] [address] PCP - General Internal Medicine 02/21/20 Owen Quan MD [address] [place] [address] Laureano@[facility] Medical Oncology 09/24/21 documented as of this encounter Additional Source Comments The information contained in this document represents components of the legal health record. It is not the complete legal health record.[facility]
--- OUTSIDE RECORDS SUMMARY | 2025-05-06 07:15 | XMS_ITS | Encounter Summary ---
Author Organization [employer] [facility] Address [address] [facility] [address] [place] [address] Phone Care Team Providers Care Accounting Systems Manager Name Role Phone Flower Bliss MD Primary Care Provider [phone] Owen Quan MD Unavailable [phone] Encounter Details Date Type Department Care Team (Late st Contact Info) Description 05/05/2022 Procedure Pass [facility], Ct Scan - [address] [address] Social History Tobacco Use Types Packs/Day Years [...] Contact Info) Description 06/23/[address] [facility] Endoscopy Department [address] [place] [address] 06/23/2025 4:00 PM EST Hospital Encounter [facility] Endoscopy Department [address] [place] [address] Catherine Caceres MBBS, MPH [address] [place] [address] POLLO@[facility] 06/23/2025 4:00 PM EST - 06/23/2025 4:[address] [facility] Endoscopy Department [address] [place] [address] Catherine Caceres MBBS, MPH [address] [place] [address] POLLO@[facility] ESOPHAGOGASTRODUODENOSCOPY 09/08/2025 3:30 PM EST Blood Draw Laboratory Services, [address], 2nd [place] [address] Lance Coles MD, PhD [address] [place], [place] [address] [place] [address] Marcial@[facility] 09/08/2025 4:30 PM EST Office Visit [facility], Division of Hematologic Oncology, [address], [address]th [place] [address] Lance Coles MD, PhD [address] [place], [place] [address] [place] [address] Marcial@[facility] Scheduled Procedures Name Priority Associated Diagnoses Date/Ti me ESOPHAGOGASTRODUODENOSCOPY Esophagitis 06/23/2025 4:00 PM EST documented as of this encounter Visit Diagnoses Not on filedocumented in this encounter Care Teams Accounting Systems Manager Relationship Specialty Start Date End Date Flower Bliss MD [address] [facility] [place] [address] PCP - General Internal Medicine 02/21/20 Owen Quan MD [address] [place] [address] Laureano@[email or web address] Medical Oncology 09/24/21 documented as of this encounter Additional Source Comments The information contained in this document represents components of the legal health record. It is not the complete legal health record.[facility]
--- OUTSIDE RECORDS SUMMARY | 2025-05-06 07:15 | XMS_ITS | Encounter Summary ---
Author Organization [employer] [facility] Address [address] [place] [address] Phone Care Team Providers Care Silverware Cleaner Name Role Phone Flower Bliss MD Primary Care Provider Owen Quan MD Unavailable [phone] Encounter Details Date Type Department Care Team (Late st Contact Info) Description 07/24/2021 Transcribe Orders [address] [address] Unknown, Unknown, Social History Tobacco Use Types Packs/Day Years [...] (Latest Contact Info) Description 06/23/2025 Procedure Pass [facility] Endoscopy Department [address] [place] [address] 06/23/2025 4:00 PM EST Hospital Encounter [facility] Endoscopy Department [address] [place] [address] Catherine Caceres MBBS, MPH [address] [place] [address] POLLO@[facility] 06/23/2025 4:00 PM EST - 06/23/2025 4:45 PM EST Surgery [facility] Endoscopy Department [address] [place] [address] Catherine Caceres MBBS, MPH [address] [place] [address] POLLO@[facility] ESOPHAGOGASTRODUODENOSCOPY 09/08/2025 3:30 PM EST Blood Draw Laboratory Services, [address], 2nd [place] [address] Lance Coles MD, PhD [address] [place], [place] [address] [place] [address] Marcial@[facility] 09/08/2025 4:30 PM EST Office Visit [facility], Division of Hematologic Oncology, [address], 7th [place] [address] Lance Coles MD, PhD [address] [place], [place] [address] [place] [address] Marcial@[facility] Scheduled Procedures Name Priority Associated Diagnoses Date/Ti me ESOPHAGOGASTRODUODENOSCOPY Esophagitis 06/23/2025 4:00 PM EST documented as of this encounter Visit Diagnoses Not on filedocumented in this encounter Care Teams Silverware Cleaner Relationship Specialty Start Date End Date Flower Bliss MD [address] [place] [address] PCP - General Internal Medicine 02/21/20 Owen Quan MD [address] [place] [address] Laureano@[facility] Medical Oncology 09/24/21 documented as of this encounter Additional Source Comments The information contained in this document represents components of the legal health record. It is not the complete legal health record.[facility]
--- OUTSIDE RECORDS SUMMARY | 2025-05-06 07:15 | XMS_ITS | Encounter Summary ---
Author Organization [employer] [facility] Address [address] [place] [address] Phone Care Team Providers Care Continuous Pickling Line Pickler Helper Name Role Phone Flower Bliss MD Primary Care Provider [phone] Owen Quan MD Unavailable [phone] Encounter Details Date Type Department Care Team (Late st Contact Info) Description 09/05/2021 Procedure Pass [address] [address] Social History Tobacco Use Types Packs/Day Years [...] (Latest Contact Info) Description 06/23/2025 Procedure Pass [facility] Endoscopy Department [address] [place] [address] 06/23/2025 4:00 PM EST Hospital Encounter [facility] Endoscopy Department [address] [place] [address] Catherine Caceres MBBS, MPH [address] [place] [address] POLLO@[facility] 06/23/2025 4:00 PM EST - 06/23/2025 4:45 PM EST Surgery [facility] Endoscopy Department [address] [place] [address] Catherine Caceres MBBS, MPH [address] [place] [address] POLLO@[facility] ESOPHAGOGASTRODUODENOSCOPY 09/08/2025 3:30 PM EST Blood Draw Laboratory Services, [address], 2nd [place] [address] Lance Coles MD, PhD [address] [place] [address] [place] [address] Marcial@[facility] 09/08/2025 4:30 PM EST Office Visit [facility], Division of Hematologic Oncology, [address], [address] [place] [address] Lance Coles MD, PhD [address] [place] [address] [place] [address] Marcial@[facility] Scheduled Procedures Name Priority Associated Diagnoses Date/Ti me ESOPHAGOGASTRODUODENOSCOPY Esophagitis 06/23/2025 4:00 PM EST documented as of this encounter Visit Diagnoses Not on filedocumented in this encounter Care Teams Continuous Pickling Line Pickler Helper Relationship Specialty Start Date End Date Flower Bliss MD [address] [place] [id number] PCP - General Internal Medicine 02/21/20 Owen Quan MD [address] [place] [address] [email or web address] Medical Oncology 09/24/21 documented as of this encounter Additional Source Comments The information contained in this document represents components of the legal health record. It is not the complete legal health record.[facility]
--- OUTSIDE RECORDS SUMMARY | 2025-05-06 07:15 | XMS_ITS | Encounter Summary ---
Author Organization [employer] [facility] Address [address] [place] [address] Phone Care Team Providers Care Supervisor Sulfuric Acid Plant Name Role Phone Flower Bliss MD Primary Care Provider [phone] Owen Quan MD Unavailable [phone] Encounter Details Date Type Department Care Team (Late st Contact Info) Description 09/07/2023 Procedure Pass [facility], Ct Scan - [address] [address] Social History Tobacco Use Types Packs/Day Years [...] Contact Info) Description 06/23/[address] [facility] Endoscopy Department [address] [place] [address] 06/23/2025 4:00 PM EST Hospital Encounter [facility] Endoscopy Department [address] [place] [address] Catherine Caceres MBBS, MPH [address] [place] [address] YOSHICHRISTOPHER@[facility] 06/23/2025 4:00 PM EST - 06/23/2025 4:[address] [facility] Endoscopy Department [address] [place] [address] Catherine Caceres MBBS, MPH [address] [place] [address] POLLO@[facility] ESOPHAGOGASTRODUODENOSCOPY 09/08/2025 3:30 PM EST Blood Draw Laboratory Services, [address], 2nd [place] [address] Lance Coles MD, PhD [address] [place], [place] [address] [place] [address] Marcial@[facility] 09/08/2025 4:30 PM EST Office Visit [facility], Division of Hematologic Oncology, [address], [address] [place] [address] Lance Coles MD, PhD [address] [place] [address] [place] [address] Marcial@[facility] Scheduled Procedures Name Priority Associated Diagnoses Date/Ti me ESOPHAGOGASTRODUODENOSCOPY Esophagitis 06/23/2025 4:00 PM EST documented as of this encounter Visit Diagnoses Not on filedocumented in this encounter Care Teams Supervisor Sulfuric Acid Plant Relationship Specialty Start Date End Date Flower Bliss MD [address] [place] [address] PCP - General Internal Medicine 02/21/20 Owen Quan MD [address] [place] [address] Laureano@[email or web address] Medical Oncology 09/24/21 documented as of this encounter Additional Source Comments The information contained in this document represents components of the legal health record. It is not the complete legal health record.[facility]
--- OUTSIDE RECORDS SUMMARY | 2025-05-06 07:15 | XMS_ITS | Encounter Summary ---
Author Organization [email or web address] [facility] Address [address] [place] [address] Phone Care Team Providers Care Fly Tier Name Role Phone Flower Bliss MD Primary Care Provider Owen Quan MD Unavailable [phone] Encounter Details Date Type Department Care Team (Late st Contact Info) Description 07/17/2023 Procedure Pass [facility], Ct Scan - [address] [address] Social History Tobacco Use Types Packs/Day Years [...] (Latest Contact Info) Description 06/23/2025 Procedure Pass [facility] Endoscopy Department [address] [place] [address] 06/23/2025 4:00 PM EST Hospital Encounter [facility] Endoscopy Department [address] [place] [address] Catherine Caceres MBBS, MPH [address] [place] [address] YOSHICHRISTOPHER@[facility] 06/23/2025 4:00 PM EST - 06/23/2025 4:45 PM EST Surgery [facility] Endoscopy Department [address] [place] [address] Catherine Caceres MBBS, MPH [address] [place] [address] POLLO@[facility] ESOPHAGOGASTRODUODENOSCOPY 09/08/2025 3:30 PM EST Blood Draw Laboratory Services, [address], 2nd [place] [address] Lance Coles MD, PhD [address] [place], [place] [address] [place] [address] Marcial@[facility] 09/08/2025 4:30 PM EST Office Visit [facility] for [facility], Division of Hematologic Oncology, [address], 7th [place] [address] Lance Coles MD, PhD [address] [place] [address] [place] [address] Marcial@[facility] Scheduled Procedures Name Priority Associated Diagnoses Date/Ti me ESOPHAGOGASTRODUODENOSCOPY Esophagitis 06/23/2025 4:00 PM EST documented as of this encounter Visit Diagnoses Not on filedocumented in this encounter Care Teams Fly Tier Relationship Specialty Start Date End Date Flower Bliss MD [address] [facility] [place] [address] PCP - General Internal Medicine 02/21/20 Owen Quan MD [address] [place] [address] Laureano@[email or web address] Medical Oncology 09/24/21 documented as of this encounter Additional Source Comments The information contained in this document represents components of the legal health record. It is not the complete legal health record.[facility]
--- OUTSIDE RECORDS SUMMARY | 2025-05-06 07:15 | XMS_ITS | Encounter Summary ---
Author Organization [employer] [facility] Address [address] [place] [address] Phone Care Team Providers Care Public Information Director Name Role Phone Flower Bliss MD Primary Care Provider [phone] Owen Quan MD Unavailable [phone] Encounter Details Date Type Department Care Team (Late st Contact Info) Description 07/17/2023 Procedure Pass [facility], Ct Scan - [address] [address] Social History Tobacco Use Types Packs/Day Years [...] (Latest Contact Info) Description 06/23/2025 Procedure Pass [facility] Endoscopy Department [address] [place] [address] 06/23/2025 4:00 PM EST Hospital Encounter [facility] Endoscopy Department [address] [place] [address] Catherine Caceres MBBS, MPH [address] [place] [address] YOSHICHRISTOPHER@[facility] 06/23/2025 4:00 PM EST - 06/23/2025 4:45 PM EST Surgery [facility] Endoscopy Department [address] [place] [address] Catherine Caceres MBBS, MPH [address] [place] [address] POLLO@[facility] ESOPHAGOGASTRODUODENOSCOPY 09/08/2025 3:30 PM EST Blood Draw Laboratory Services, [address], 2nd [place] [address] Lance Coles MD, PhD [address] [place], [place] [address] [place] [address] Marcial@[facility] 09/08/2025 4:30 PM EST Office Visit [facility], Division of Hematologic Oncology, [address], 7th [place] [address] Lance Coles MD, PhD [address] [place] [address] [place] [address] Marcial@[facility] Scheduled Procedures Name Priority Associated Diagnoses Date/Ti me ESOPHAGOGASTRODUODENOSCOPY Esophagitis 06/23/2025 4:00 PM EST documented as of this encounter Visit Diagnoses Not on filedocumented in this encounter Care Teams Public Information Director Relationship Specialty Start Date End Date Flower Bliss MD [address] [facility] [place] [address] PCP - General Internal Medicine 02/21/20 Owen Quan MD [address] [place] [address] Laureano@[facility] Medical Oncology 09/24/21 documented as of this encounter Additional Source Comments The information contained in this document represents components of the legal health record. It is not the complete legal health record.[facility]
--- OUTSIDE RECORDS SUMMARY | 2025-05-06 07:15 | XMS_ITS | Encounter Summary ---
Author Organization [employer] [facility] Address [address] [facility] [address] [place] [address] Phone Care Team Providers Care Curve Cleaner Name Role Phone Flower Bliss MD Primary Care Provider [phone] Owen Quan MD Unavailable [phone] Encounter Details Date Type Department Care Team (Late st Contact Info) Description 09/26/2021 Procedure Pass [facility], Ct Scan - [address] [address] Social History Tobacco Use Types Packs/Day Years [...] (Latest Contact Info) Description 06/23/2025 Procedure Pass [facility] Endoscopy Department [address] [place] [address] 06/23/2025 4:00 PM EST Hospital Encounter [facility] Endoscopy Department [address] [place] [address] Catherine Caceres MBBS, MPH [address] [place] [address] POLLO@[facility] 06/23/2025 4:00 PM EST - 06/23/2025 4:45 PM EST Surgery [facility] Endoscopy Department [address] [place] [address] Catherine Caceres MBBS, MPH [address] [place] [address] POLLO@[facility] ESOPHAGOGASTRODUODENOSCOPY 09/08/2025 3:30 PM EST Blood Draw Laboratory Services, [address] 2nd [place] [address] Lance Coles MD, PhD [address] [place], [place] [address] [place] [address] Marcial@[facility] 09/08/2025 4:30 PM EST Office Visit [facility] for Lymphoma, Division of Hematologic Oncology, [address], 7th [place] [address] Lance Coles MD, PhD [address] [place], [place] [address] [place] [address] Marcial@[facility] Scheduled Procedures Name Priority Associated Diagnoses Date/Ti me ESOPHAGOGASTRODUODENOSCOPY Esophagitis 06/23/2025 4:00 PM EST documented as of this encounter Visit Diagnoses Not on filedocumented in this encounter Care Teams Curve Cleaner Relationship Specialty Start Date End Date Flower Bliss MD [address] [place] [address] PCP - General Internal Medicine 02/21/20 Owen Quan MD [address] [place] [address] Laureano@[facility] Medical Oncology 09/24/21 documented as of this encounter Additional Source Comments The information contained in this document represents components of the legal health record. It is not the complete legal health record.[facility]
--- OUTSIDE RECORDS SUMMARY | 2025-05-06 07:15 | XMS_ITS | Encounter Summary ---
Author Organization [facility] Address [address] [address] [place] [address] Phone Care Team Providers Care Chief Nurse Anesthetist Name Role Phone Flower Bliss MD Primary Care Provider [phone] Owen Quan MD Unavailable [phone] Encounter Details Date Type Department Care Team (Late st Contact Info) Description 01/10/2022 Procedure Pass [address] [address] Social History Tobacco Use Types Packs/Day Years [...] (Latest Contact Info) Description 06/23/2025 Procedure Pass [facility] Endoscopy Department [address] [place] [address] 06/23/2025 4:00 PM EST Hospital Encounter [facility] Endoscopy Department [address] [place] [address] Catherine Caceres MBBS, MPH [address] [place] [address] POLLO@[email or web address] 06/23/2025 4:00 PM EST - 06/23/2025 4:45 PM EST Surgery [facility] Endoscopy Department [address] [place] [address] Catherine Caceres MBBS, MPH [address] [place] [address] POLLO@[email or web address] ESOPHAGOGASTRODUODENOSCOPY 09/08/2025 3:30 PM EST Blood Draw Laboratory Services, [address], 2nd [place] [address] Lance Coles MD, PhD [address] [place], [place] [address] [place] [address] Marcial@[facility] 09/08/2025 4:30 PM EST Office Visit [facility], Division of Hematologic Oncology, [address], [address] [place] [address] Lance Coles MD, PhD [address] [place], [place] [address] [place] [address] Marcial@[facility] Scheduled Procedures Name Priority Associated Diagnoses Date/Ti me ESOPHAGOGASTRODUODENOSCOPY Esophagitis 06/23/2025 4:00 PM EST documented as of this encounter Visit Diagnoses Not on filedocumented in this encounter Care Teams Chief Nurse Anesthetist Relationship Specialty Start Date End Date Flower Bliss MD [address] [facility] [place] [address] PCP - General Internal Medicine 02/21/20 Owen Quan MD [address] [place] [address] Laureano@[facility] Medical Oncology 09/24/21 documented as of this encounter Additional Source Comments The information contained in this document represents components of the legal health record. It is not the complete legal health record.[facility]
--- OUTSIDE RECORDS SUMMARY | 2025-05-06 07:15 | XMS_ITS | Encounter Summary ---
Author Organization [employer] [facility] Address [address] [facility] [address] [place] [address] Phone Care Team Providers Care Clinical Laboratory Technologist Name Role Phone Flower Bliss MD Primary Care Provider [phone] Owen Quan MD Unavailable [phone] Encounter Details Date Type Department Care Team (Late st Contact Info) Description 05/05/2022 Procedure Pass [facility], Ct Scan - [address] [address] Social History Tobacco Use Types Packs/Day Years [...] (Latest Contact Info) Description 06/23/2025 Procedure Pass [facility] Endoscopy Department [address] [place] [address] 06/23/2025 4:00 PM EST Hospital Encounter [facility] Endoscopy Department [address] [place] [address] Catherine Caceres MBBS, MPH [address] [place] [address] POLLO@[facility] 06/23/2025 4:00 PM EST - 06/23/2025 4:45 PM EST Surgery [facility] Endoscopy Department [address] [place] [address] Catherine Caceres MBBS, MPH [address] [place] [address] POLLO@[facility] ESOPHAGOGASTRODUODENOSCOPY 09/08/2025 3:30 PM EST Blood Draw Laboratory Services, [address] 2nd [place] [address] Lance Coles MD, PhD [address] [place], [place] [address] [place] [address] Marcial@[facility] 09/08/2025 4:30 PM EST Office Visit [facility], Division of Hematologic Oncology, [address], 7[address] [place] [address] Lance Coles MD, PhD [address] [place], [place] [address] [place] [address] Marcial@[facility] Scheduled Procedures Name Priority Associated Diagnoses Date/Ti me ESOPHAGOGASTRODUODENOSCOPY Esophagitis 06/23/2025 4:00 PM EST documented as of this encounter Visit Diagnoses Not on filedocumented in this encounter Care Teams Clinical Laboratory Technologist Relationship Specialty Start Date End Date Flower Bliss MD [address] [place] [address] PCP - General Internal Medicine 02/21/20 Owen Quan MD [address] [place] [address] Laureano@[email or web address] Medical Oncology 09/24/21 documented as of this encounter Additional Source Comments The information contained in this document represents components of the legal health record. It is not the complete legal health record.[facility]
--- OUTSIDE RECORDS SUMMARY | 2025-05-06 07:15 | XMS_ITS | Encounter Summary ---
Author Organization [employer] Formerly [facility], 1930–[address] [place] [address] Phone Care Team Providers Care Bomb Squad Commander Name Role Phone Flower Bliss MD Primary Care Provider [phone] Owen Quan MD Unavailable [phone] Encounter Details Date Type Department Care Team (Late st Contact Info) Description 01/05/2024 Procedure Pass [facility], Ct Scan - [address] [address] Social History Tobacco Use Types Packs/Day Years [...] Contact Info) Description 06/23/2025 Procedure Pass [facility] Endoscopy Department [address] [place] [address] 06/23/2025 4:00 PM EST Hospital Encounter [facility] Endoscopy Department [address] [place] [address] Catherine Caceres MBBS, MPH [address] [place] [address] YOSHICHRISTOPHER@[email or web address] 06/23/2025 4:00 PM EST - 06/23/2025 4:45 PM EST Surgery [facility] Endoscopy Department [address] [place] [address] Catherine Caceres MBBS, MPH [address] [place] [address] POLLO@[email or web address] ESOPHAGOGASTRODUODENOSCOPY 09/08/2025 3:30 PM EST Blood Draw Laboratory Services, [address], 2nd [place] [address] Lance Coles MD, PhD [address] [place], [place] [address] [place] [address] Marcial@[email or web address] 09/08/2025 4:30 PM EST Office Visit [facility], Division of Hematologic Oncology, [address], 7[address] [place] [address] Lance Coles MD, PhD [address] [place] [address] [place] [address] Marcial@[email or web address] Scheduled Procedures Name Priority Associated Diagnoses Date/Ti me ESOPHAGOGASTRODUODENOSCOPY Esophagitis 06/23/2025 4:00 PM EST documented as of this encounter Visit Diagnoses Not on filedocumented in this encounter Care Teams Bomb Squad Commander Relationship Specialty Start Date End Date Flower Bliss MD [address] [place] [address] PCP - General Internal Medicine 02/21/20 Owen Quan MD [address] [place] [address] [email or web address] Medical Oncology 09/24/21 documented as of this encounter Additional Source Comments The information contained in this document represents components of the legal health record. It is not the complete legal health record.[facility]
[2025-05-06 11:26] LABS: Hemoglobin A1C 156.8389 umol/L; Total Hemoglobin (HGBA1C) 3326.2563 umol/L
[2025-05-06 12:04] LABS: Alanine Aminotransferase 18 U/L (0-40); Albumin Level 4.3 g/dL (3.5-5.0); Alkaline Phosphatase 68 U/L (39-117); Anion Gap 11 (12-20); Aspartate Amino Transferase 31 U/L (5-37); Blood Urea Nitrogen 15 mg/dL (9-16); Calcium 9.6 mg/dL (8.4-10.2); Carbon Dioxide 25 mmol/L (22-29); Chloride 107 mmol/L (96-108); Cholesterol 160 mg/dL (<200); Estimated Glomerular Filt Rate > 60; HDL Cholesterol 44 mg/dL (>40); Potassium 4.2 mmol/L (3.3-5.1); Sodium 139 mmol/L (135-145); Total Protein 7.3 g/dL (6.5-8.0); Triglycerides 110 mg/dL (<150)
== END 2025-05-06 07:12 | disposition home or self-care (01) ==
LOC: HO.HMGCLDS 07:11
PROVIDERS: PCP Internal Medicine; Visit Provider Internal Medicine
DX: I72.8 Aneurysm of other specified arteries (principal); E11.9 Type 2 diabetes mellitus without complications; E78.5 Hyperlipidemia, unspecified; M06.9 Rheumatoid arthritis, unspecified
CPT/HCPCS: 36415; 80053; 80061; 82043; 82570; 83036

== ENCOUNTER 2025-05-16 13:37 | Outpatient (AMB) | payer BC, SELFPAY ==
[2025-05-16 14:12] VITALS: BP 122/74; PULSE 82; RESP 18; TEMP 36.8; O2SAT 97; BMI 27.4
--- NOTE | 2025-05-16 14:12 | MHC.PC.OV ---
Vital Signs 05/16/25 14:12 Height 5 ft 10 in Weight 191 lb BMI 27.4 BP 122/74 Blood Pressure Location Rt brachial Position Sitting Respiration 18 Pulse 82 Pulse Source Pulse Oximeter Temp 98.2 F Temp Source Oral Pulse Oximetry (%) 97 Oxygen Delivery Method Room Air Intake Visit Reasons: 4 months f/up Intake Note: Pt is here today for 4 months follow up visit. Allergies empagliflozin (From [employer]) Allergy (Verified 05/16/25 14:13) chest pain Medication List - Last Reconciled 05/16/25 by Flower Bliss MD albuterol sulfate 90 mcg/actuation 0 mcg inhalation hydroxychloroquine 200 mg PO DAILY meloxicam 15 mg PO DAILY metformin 1,000 mg PO BID rosuvastatin 20 mg PO DAILY tamsulosin 0.4 mg PO BEDTIME Tobacco use date assessed: 05/16/25 Fall risk assessment: No Falls in past year Last assessed Fall Risk: 05/16/25 Dental Screening Dental Screen Date: 01/04/25 HPI 4 months f/up HPI Details Pt presents for f/u HTN, DM 2, hyperlipid, stable on meds. PFSH Medical History Splenic artery aneurysm Hx of renal cell carcinoma Annual physical exam GERD (gastroesophageal reflux disease) Rectal bleeding Rosacea Hyperlipidemia Type 2 diabetes mellitus Surgical History H/O colonoscopy No pertinent past surgical history Family History Father No problems noted. Mother No problems noted. Social History Housing: House Alcohol intake: current Alcohol intake frequency: does not drink Patient Tobacco Use Status: Never used Tobacco e-Cigarette/Vaping Use: Never Used service: No Current occupational status: employed Cognitive needs: No Hearing needs: No Vision needs: No Questionnaire PHQ-9 Over the last 2 weeks, how often have you been bothered by any of the following problems? 1. Little interest or pleasure in doing things: not at all 2. Feeling down, depressed, or hopeless: not at all 3. Trouble falling or staying asleep, or sleeping too much: not at all 4. Feeling tired or having little energy: not at all 5. Poor appetite or overeating: not at all 6. Feeling bad about yourself - or that you are a failure or have let yourself or your family down: not at all 7. Trouble concentrating on things, such as reading the newspaper or watching television: not at all 8. Moving or speaking so slowly that other people could have noticed. Or the opposite - being so fidgety or restless that you have been moving around a lot more than usual: not at all 9. Thoughts that you would be better off or of hurting yourself in some way: not at all Total score: 0 Depression Screening Interpretation: Negative Depression Screening Done: Yes Source: Developed by Drs. Hema Barclay, Mert Martines and colleagues, with an educational ashok from [employer]. Thrive Questionnaire Date Thrive assessed: 09/06/24 I am a: Patient RADHA-7 AMB Questionnaire RADHA-7 Date RADHA - 7 assessed: 09/06/24 Feeling nervous, anxious, or on edge: 0 = Not at all Not being able to stop or control worryin = Not at all Worrying too much about different things: 0 = Not at all Trouble relaxin = Not at all Being so restless that it is hard to sit still: 0 = Not at all Becoming easily annoyed or irritable: 0 = Not at all Feeling afraid as if something awful might happen: 0 = Not at all Total RADHA-7 score (0-4 normal; 5-9 mild; 10-14 moderate; 15-21 severe): 0 Source: Developed by Drs. Hmea Barclay, Mert Martines and colleagues, with an educational ashok from [employer]. Review of Systems Const All systems reviewed & are unremarkable except as noted in HPI and below Reports no additional complaints Eyes Reports no additional complaints ENT Reports no additional complaints Card Reports no additional complaints Resp Reports no additional complaints GI Reports no additional complaints Reports no additional complaints Physical exam (Primary Care) Vital Signs: Last Vital Signs Temp 98.2 F 05/16/25 14:12 Pulse 82 05/16/25 14:12 Resp 18 05/16/25 14:12 BP 122/74 05/16/25 14:12 Pulse Ox 97 05/16/25 14:12 Oxygen Delivery Method Room Air 05/16/25 14:12 BMI result Body Mass Index 27.4 Tobacco/Smoking Status: Tobacco use Status Tobacco use date assessed 05/16/25 05/16/25 14:17 Patient Tobacco Use Status Never used Tobacco 05/16/25 14:14 e-Cigarette/Vaping Use Never Used 05/16/25 14:14 PHQ-9: PHQ-9 Score PHQ-9: Total score 0 05/16/25 14:17 Depression Screening Interpretation: Negative Thrive Assessment: Date of Thrive Assessment Date Thrive assessed 09/06/24 05/16/25 14:14 Const General: no acute distress HENMT Head: Yes normal to inspection Ears: hearing grossly normal bilaterally Face and sinus: Yes normal facial exam Mouth: Normal oral and palatal mucosa present Throat: Yes posterior oropharynx normal Eyes General: appearance normal, both eyes and all related structures Neck Neck: Yes no lymphadenopathy and Yes supple Resp Effort & Inspection: normal respiratory effort Auscultation: clear to auscultation bilaterally Cardio Rhythm: regular rhythm Heart sounds: S1 normal heart sound present and S2 normal heart sound present GI Inspection: Yes normal to inspection Palpation (GI): Soft to palpation Percussion: Yes normal to percussion Auscultation: normal bowel sounds Coding Level of Care Code Est Pt Level 4 (21714) Diagnoses Hyperlipidemia E78.5 Type 2 diabetes mellitus E11.9 Hx of renal cell carcinoma Z85.528 Assessment & Plan Assessment & Plan (1) Hyperlipidemia: Code(s): E78.5 - Hyperlipidemia, unspecified Category: Medical Plan: cont Crestor (2) Type 2 diabetes mellitus: Code(s): E11.9 - Type 2 diabetes mellitus without complications Category: Medical Plan: a1c is 6.5, cont ADA, regular exercise discussed, (3) Hx of renal cell carcinoma: Comment: s/p L partial nephrectomy 2013, recurrence 2020, f/u [facility] Code(s): Z85.528 - Personal history of other malignant neoplasm of kidney Category: Medical Plan: Follow-up with [facility] General Orders: Orders Complete Blood Count Auto Diff 4 Months E11.9 - Type 2 diabetes mellitus without complications, E78.5 - Hyperlipidemia, unspecified, Z00.00 - Encounter for general adult medical examination without abnormal findings Lipid Panel 4 Months E11.9 - Type 2 diabetes mellitus without complications, E78.5 - Hyperlipidemia, unspecified, Z00.00 - Encounter for general adult medical examination without abnormal findings Hemoglobin A1c 4 Months E11.9 - Type 2 diabetes mellitus without complications, E78.5 - Hyperlipidemia, unspecified, Z00.00 - Encounter for general adult medical examination without abnormal findings Comprehensive [place]. Panel Fast 4 Months E11.9 - Type 2 diabetes mellitus without complications, E78.5 - Hyperlipidemia, unspecified, Z00.00 - Encounter for general adult medical examination without abnormal findings Microalbumin, Random (w Creat) 4 Months E11.9 - Type 2 diabetes mellitus without complications, E78.5 - Hyperlipidemia, unspecified, Z00.00 - Encounter for general adult medical examination without abnormal findings UA w Microscopic 4 Months E11.9 - Type 2 diabetes mellitus without complications, E78.5 - Hyperlipidemia, unspecified, Z00.00 - Encounter for general adult medical examination without abnormal findings PSA,Total (Free>4and<10) 4 Months E11.9 - Type 2 diabetes mellitus without complications, E78.5 - Hyperlipidemia, unspecified, Z00.00 - Encounter for general adult medical examination without abnormal findings
--- OUTSIDE RECORDS SUMMARY | 2025-05-16 14:53 | XMS_ITS | Encounter Summary ---
Author Organization [facility] Address [address] [place] [address] Phone Care Team Providers Care Child Study Team Director Name Role Phone Flower Bliss MD Primary Care Provider [phone] Owen Quan MD Unavailable [phone] Reason for Visit * Reason Onset Date Comments Dr Caceres/patient advise 03/17/2025 Encounter Details Date Type Department Care Team (Late st Contact Info) Description 03/17/2025 Telephone [facility] Specialties [address] [address] Catherine Caceres MBBS, MPH [address] [place] [address] [email or web address] Dr Caceres/patient advise Social History Tobacco Use [...] (Latest Contact Info) Description 06/23/2025 Procedure Pass [facility] Endoscopy Department [address] [place] [address] 06/23/2025 4:00 PM EST Hospital Encounter [facility] Endoscopy Department [address] [place] [address] Catherine Caceres MBBS, MPH [address] [place] [address] [email or web address] 06/23/2025 4:00 PM EST - 06/23/2025 4:45 PM EST Surgery [facility] Endoscopy Department [address] [place] [address] Catherine Caceres MBBS, MPH [address] [place] [address] POLLO@[email or web address] ESOPHAGOGASTRODUODENOSCOPY 09/08/2025 3:30 PM EST Blood Draw Laboratory Services, [facility] [address]nd [place] [address] Lance Coles MD, PhD [address] [place] [address] [email or web address] 09/08/2025 4:30 PM EST Office Visit Center for Lymphoma, Division of Hematologic Oncology, [facility] [address] [place] [address] Lance Coles MD, PhD [address] [place] [address] [place] [address] Marcial@[email or web address] Scheduled Procedures Name Priority Associated Diagnoses Date/Ti me ESOPHAGOGASTRODUODENOSCOPY Esophagitis 06/23/2025 4:00 PM EST documented as of this encounter Visit Diagnoses Not on filedocumented in this encounter Care Teams Child Study Team Director Relationship Specialty Start Date End Date Flower Bliss MD [address] [place] [address] PCP - General Internal Medicine 02/21/20 Owen Quan MD [address] [place] [address] [place] [address] [email or web address] Medical Oncology 09/24/21 documented as of this encounter Additional Source Comments The information contained in this document represents components of the legal health record. It is not the complete legal health record.[facility]
--- OUTSIDE RECORDS SUMMARY | 2025-05-16 14:53 | XMS_ITS | Encounter Summary ---
Author Organization [employer] [facility] Address [address] [place] [address] Phone Care Team Providers Care Mail Order Sorter Name Role Phone Flower Bliss MD Primary Care Provider [phone] Owen Quan MD Unavailable [phone] Encounter Details Date Type Department Care Team (Late st Contact Info) Description 07/12/2024 Procedure Pass [facility], Ct Scan - [address] [address] Social History Tobacco Use Types Packs/Day Years [...] (Latest Contact Info) Description 06/23/2025 Procedure Pass [facility] Endoscopy Department [address] [place] [address] 06/23/2025 4:00 PM EST Hospital Encounter [facility] Endoscopy Department [address] [place] [address] Catherine Caceres MBBS, MPH [address] [place] [address] YOSHICHRISTOPHER@[facility] 06/23/2025 4:00 PM EST - 06/23/2025 4:45 PM EST Surgery [facility] Endoscopy Department [address] [place] [address] Catherine Caceres MBBS, MPH [address] [place] [address] POLLO@[facility] ESOPHAGOGASTRODUODENOSCOPY 09/08/2025 3:30 PM EST Blood Draw Laboratory Services, [address] 2[address] [place] [address] Lance Coles MD, PhD [address] [place], [place] [address] [place] [address] Marcial@[facility] 09/08/2025 4:30 PM EST Office Visit [facility] for Lymphoma, Division of Hematologic Oncology, [address], [address] [place] [address] Lance Coles MD, PhD [address] [place] [address] [place] [address] Marcial@[facility] Scheduled Procedures Name Priority Associated Diagnoses Date/Ti me ESOPHAGOGASTRODUODENOSCOPY Esophagitis 06/23/2025 4:00 PM EST documented as of this encounter Visit Diagnoses Not on filedocumented in this encounter Care Teams Mail Order Sorter Relationship Specialty Start Date End Date Flower Bliss MD [address] [facility] [place] [address] PCP - General Internal Medicine 02/21/20 Owen Quan MD [address] [facility] [address] [place] [address] [email or web address] Medical Oncology 09/24/21 documented as of this encounter Additional Source Comments The information contained in this document represents components of the legal health record. It is not the complete legal health record.[facility]
--- OUTSIDE RECORDS SUMMARY | 2025-05-16 14:53 | XMS_ITS | Encounter Summary ---
Author Organization [facility] Address [address] [place] [address] Phone Care Team Providers Care Manager Respiratory Care Name Role Phone Unknown, Unknown Primary Care Provider Flower Moncada MD Primary Care Provider [phone] Owen Quan MD Unavailable [phone] Encounter Details Date Type Department Care Team (Late st Contact Info) Description 12/13/2018 Transcribe Orders [facility] [address] [place] [address] Jeri [email or web address] Social History Tobacco Use Types Packs/Day Years [...] 06/23/2025 Procedure Pass [facility] Endoscopy Department [address] [place] [address] 06/23/2025 4:00 PM EST Hospital Encounter [facility] Endoscopy Department [address] [place] [address] Catherine Caceres MBBS, MPH [address] [place] [address] YOSHICHRISTOPHER@[facility] 06/23/2025 4:00 PM EST - 06/23/2025 4:45 PM EST Surgery [facility] Endoscopy Department [address] [place] [address] Catherine Caceres MBBS, MPH [address] [place] [address] POLLO@[facility] ESOPHAGOGASTRODUODENOSCOPY 09/08/2025 3:30 PM EST Blood Draw Laboratory Services, [address] [place] [address] Lance Coles MD, PhD [address] [place] [address] [place] [address] Marcial@[email or web address] 09/08/2025 4:30 PM EST Office Visit Center for Lymphoma, Division of Hematologic Oncology, [address] [place] [address] Lance Coles MD, PhD [address] [place] [address] [place] [address] Marcial@[email or web address] Scheduled Procedures Name Priority Associated Diagnoses Date/Ti va ESOPHAGOGASTRODUODENOSCOPY Esophagitis 06/23/2025 4:00 PM EST documented as of this encounter Results * XR Chest Outside (No Interpretation) (12/13/2018 12:19 PM EDT) Narrative [facility] - 12/13/2018 12:19 PM EDT This study is for PACS storage only and not for interpretation. us Jairo Griffith MD, MS IMG OUTSIDE IMAGING W/OUT INTERPRETATION Final Result [facility] * US Abdomen Outside (No Interpretation) (12/13/2018 12:19 PM EDT) Narrative [facility] - 12/13/2018 12:19 PM EDT This study is for PACS storage only and not for interpretation. us Jairo Griffith MD, MS IMG OUTSIDE IMAGING W/OUT INTERPRETATION Final Result [facility] documented in this encounter Visit Diagnoses Not on filedocumented in this encounter Care Teams Manager Respiratory Care Relationship Specialty Start Date End Date Unknown, Unknown, MD PCP - General 08/06/15 02/20/20 Flower Bliss MD [address] [facility] [place] [address] PCP - General Internal Medicine 02/21/20 Owen Quan MD [address] [place] [address] [email or web address] Medical Oncology 09/24/21 documented as of this encounter Additional Source Comments The information contained in this document represents components of the legal health record. It is not the complete legal health record.[facility]
--- OUTSIDE RECORDS SUMMARY | 2025-05-16 14:53 | XMS_ITS | Encounter Summary ---
Author Organization [facility] Address [address] [place] [address] Phone Care Team Providers Care Dental Laboratory Technology Teacher Name Role Phone Unknown, Unknown Primary Care Provider Flower Moncada MD Primary Care Provider [phone] Owen Quan MD Unavailable [phone] Encounter Details Date Type Department Care Team (Late st Contact Info) Description 11/15/2015 Transcribe Orders [facility] [address] [place] [address] Jeri [email or web address] Social History Tobacco Use Types Packs/Day Years Used Date Smoking Tobacco: Never Sex and Gender Information Value Date Recorded Sex Assigned at Not on file Legal Sex Male 5:10 PM EST Gender Identity Not on file Sexual Orientation Not on file documented as of this encounter Plan of Treatment Upcoming Encounters Date Type Department Care Team (Latest Contact Info) Description 06/23/2025 Procedure Pass [facility] Endoscopy Department [address] [place] [address] 06/23/2025 4:00 PM EST Hospital Encounter [facility] Endoscopy Department [address] [place] [address] Catherine Caceres MBBS, MPH [address] [place] [address] [email or web address] 06/23/2025 4:00 PM EST - 06/23/2025 4:45 PM EST Surgery [facility] Endoscopy Department [address] [place] [address] Catherine Caceres MBBS, MPH [address] [place] [address] [email or web address] ESOPHAGOGASTRODUODENOSCOPY 09/08/2025 3:30 PM EST Blood Draw Laboratory Services, [address] [place] [address] Lance Coles MD, PhD [address] [place] [address] [place] [address] Marcial@[facility] 09/08/2025 4:30 PM EST Office Visit [facility], Division of Hematologic Oncology, [address], [address] [place] [address] Lance Coles MD, PhD [address] [place] [address] [place] [address] Marcial@[email or web address] Scheduled Procedures Name Priority Associated Diagnoses Date/Ti me ESOPHAGOGASTRODUODENOSCOPY Esophagitis 06/23/2025 4:00 PM EST documented as of this encounter Results * MRI Abdomen Outside (No Interpretation) (11/30/2015 12:00 AM EDT) [facility]ative [facility] 11/30/2015 3:13 PM EDT This study is for PACS storage only and not for interpretation. us Jairo Griffith MD, MS IMG OUTSIDE IMAGING W/OUT INTERPRETATION Final Result [facility] documented in this encounter Visit Diagnoses Not on filedocumented in this encounter Care Teams Dental Laboratory Technology Teacher Relationship Specialty Start Date End Date Unknown, Unknown, MD PCP - General 08/06/15 02/20/20 Flower Bliss MD [address] [place] [address] PCP - General Internal Medicine 02/21/20 Owen Quan MD [address] [place] [address] Laureano@[email or web address] Medical Oncology 09/24/21 documented as of this encounter Additional Source Comments The information contained in this document represents components of the legal health record. It is not the complete legal health record.[facility]
--- OUTSIDE RECORDS SUMMARY | 2025-05-16 14:53 | XMS_ITS | Encounter Summary ---
Author Organization [employer] [facility] Address [address] [place] [address] Phone Care Team Providers Care Digital Computer Systems Analyst Name Role Phone Flower Bilss MD Primary Care Provider [phone] Owen Quan MD Unavailable [phone] Encounter Details Date Type Department Care Team (Late st Contact Info) Description 01/05/2024 Procedure Pass [facility], Ct Scan - [address] [address] Social History Tobacco Use Types Packs/Day Years [...] Procedure Pass [facility] Endoscopy Department [address] [place] [address] 06/23/2025 4:00 PM EST Hospital Encounter [facility] Endoscopy Department [address] [place] [address] Catherine Caceres MBBS, MPH [address] [place] [address] [email or web address]@[facility] 06/23/2025 4:00 PM EST - 06/23/2025 4:45 PM EST Surgery [facility] Endoscopy Department [address] [place] [address] Catherine Caceres MBBS, MPH [address] [place] [address] POLLO@[facility] ESOPHAGOGASTRODUODENOSCOPY 09/08/2025 3:30 PM EST Blood Draw Laboratory Services, [address], 2nd [place] [address] Lance Coles MD, PhD [address] [place], [place] [address] [place] [address] Marcial@[email or web address] 09/08/2025 4:30 PM EST Office Visit [facility], Division of Hematologic Oncology, [address], 7th [place] [address] Lance Coles MD, PhD [address] [place] [address] [place] [address] Marcial@[email or web address] Scheduled Procedures Name Priority Associated Diagnoses Date/Ti me ESOPHAGOGASTRODUODENOSCOPY Esophagitis 06/23/2025 4:00 PM EST documented as of this encounter Visit Diagnoses Not on filedocumented in this encounter Care Teams Digital Computer Systems Analyst Relationship Specialty Start Date End Date Flower Bliss MD [address] [facility] [place] [address] PCP - General Internal Medicine 02/21/20 Owen Quan MD [address] [place] [address] [email or web address] Medical Oncology 09/24/21 documented as of this encounter Additional Source Comments The information contained in this document represents components of the legal health record. It is not the complete legal health record.[facility]
--- OUTSIDE RECORDS SUMMARY | 2025-05-16 14:53 | XMS_ITS | Encounter Summary ---
Author Organization [employer] [facility] Address [address] [facility] [address] [place] [address] Phone Care Team Providers Care Electrical Design Technologist Name Role Phone Flower Bliss MD Primary Care Provider [phone] Owen Quan MD Unavailable [phone] Encounter Details Date Type Department Care Team (Late st Contact Info) Description 02/24/2025 Procedure Pass [facility] Endoscopy Department [address] [place] [address] Social History Tobacco Use Types Packs/Day Years [...] (Latest Contact Info) Description 06/23/2025 Procedure Pass [facility] Endoscopy Department [address] [place] [address] 06/23/2025 4:00 PM EST Hospital Encounter [facility] Endoscopy Department [address] [place] [address] Catherine Caceres MBBS, MPH [address] [place] [address] POLLO@[facility] 06/23/2025 4:00 PM EST - 06/23/2025 4:45 PM EST Surgery [facility] Endoscopy Department [address] [place] [address] Catherine Caceres MBBS, MPH [address] [place] [address] POLLO@[facility] ESOPHAGOGASTRODUODENOSCOPY 09/08/2025 3:30 PM EST Blood Draw Laboratory Services, [address], 2nd [place] [address] Lance Coles MD, PhD [address] [place], [place] [address] [place] [address] Marcial@[facility] 09/08/2025 4:30 PM EST Office Visit [facility], Division of Hematologic Oncology, [address], 7[address] [place] [address] Lance Coles MD, PhD [address] [place], [place] [address] [place] [address] Marcial@[facility] Scheduled Procedures Name Priority Associated Diagnoses Date/Ti me ESOPHAGOGASTRODUODENOSCOPY Esophagitis 06/23/2025 4:00 PM EST documented as of this encounter Visit Diagnoses Not on filedocumented in this encounter Care Teams Electrical Design Technologist Relationship Specialty Start Date End Date Flower Bliss MD [address] [place] [address] PCP - General Internal Medicine 02/21/20 Owen Quan MD [address] [place] [address] [email or web address]@[email or web address] Medical Oncology 09/24/21 documented as of this encounter Additional Source Comments The information contained in this document represents components of the legal health record. It is not the complete legal health record.[facility]
--- OUTSIDE RECORDS SUMMARY | 2025-05-16 14:53 | XMS_ITS | Clinical Summary ---
Author Organization [facility] Address [address] [facility] [address] [place] [address] Phone Care Team Providers Care Customer Service Operator Name Role Phone Brent Collins MD Primary Care Provider [phone] Owen Quan MD Unavailable [phone] Allergies No known active allergies Medications rosuvastatin (CRESTOR) 20 MG tablet Take 20 mg by mouth daily. Active metFORMIN (GLUCOPHAGE) 1000 MG tablet Activ e hydroxychloroqu ine (PLAQUENIL) 200 mg tablet 06/16/2024 Activ e omeprazole (PRILOSEC) 20 MG capsule Take 1 capsule (20 mg total) by mouth 2 (two) times a day before meals. 168 capsule 02/24/2025 Active Active Problems Problem Noted Date Diagnosed [...] Department Care Team Description 03/17/2025 Orders Only [facility] Endoscopy [address] [place] [address] Katia Caceres MBBS, MPH Esophagitis (Primary Dx) 03/17/[address] [place] [address] Katia Caceres MBBS, MPH Dr Caceres/patient advise 03/03/2025 2:30 PM EDT Office Visit Center for Lymphoma, Division of Hematologic Oncology, [facility] [place] [address] [place] [address], [address] [place] [address] Lance Coles MD, PhD Monoclonal B-cell lymphocytosis (Primary Dx); Epigastric pain 02/24/2025 3:00 PM EDT - 02/24/2025 3:45 PM EDT Surgery [facility] Endoscopy Department [address] [place] [address] Katia Caceres MBBS, MPH ESOPHAGOGASTRODUODENOSCOPY 02/24/2025 1:23 PM EDT - 02/24/2025 5:13 PM EDT Hospital Encounter [facility] Endoscopy Department [address] [place] [address] Katia Caceres MBBS, MPH Discharge Disposition: Home or Self Care 02/24/2025 Orders Only [facility], Division of Hematologic Oncology, [facility] Cancer [address], [address] [place] [address] Sia Whitten CLL (chronic lymphocytic leukemia) (Primary Dx) 02/24/2025 Procedure Pass [facility] Endoscopy Department [address] [place] [address] from Last 3 Months Social History Tobacco [...] Info) Description 06/23/2025 Procedure Pass [facility] Endoscopy Department [address] [place] [address] 06/23/2025 4:00 PM EST Hospital Encounter [facility] Endoscopy Department [address] [place] [address] Katia Caceres MBBS, MPH [address] [place] [address] POLLO@[facility] 06/23/2025 4:00 PM EST - 06/23/2025 4:45 PM EST Surgery [facility] Endoscopy Department [address] [place] [address] Katia Caceres MBBS, MPH [address] [place] [address] POLLO@[facility] ESOPHAGOGASTRODUODENOSCOPY 09/08/2025 3:30 PM EST Blood Draw Laboratory Services, [address], 2nd [place] [address] Lance Coles MD, PhD [address] [place], [place] [address] [place] [address] Marcial@[facility] 09/08/2025 4:30 PM EST Office Visit [facility] for Lymphoma, Division of Hematologic Oncology, [address], [address] [place] [address] Lance Coles MD, PhD [address] [place], [place] [address] [place] [address] Marcial@[facility] Scheduled Procedures Name Priority Associated [...] PM EDT) Research Test FOR RESEARCH STUDY [facility] LIC# [id number] Blood 03/03/2025 1:33 PM EDT 03/03/2025 1:48 PM EDT us Lance Coles MD, PhD LAB BLOOD ORDERABLES Final R esult [facility] LIC# [id number] [address] [place] [address] * CLL BANK 2 (03/03/2025 1:33 PM EDT) Research Test FOR RESEARCH STUDY [facility] LIC# [id number] Blood 03/03/2025 1:33 PM EDT 03/03/2025 1:49 PM EDT us Lance Coles MD, PhD LAB BLOOD ORDERABLES Final R esult Performing Organization Address City/[facility] Co de Phone Number [facility] LIC# [id number] [address] [place] [address] * LDH (03/03/2025 1:33 PM EDT) LDH 169 135 - 225 U/L [facility] LIC# [id number] Blood 03/03/2025 1:33 PM EDT 03/03/2025 1:48 PM EDT us Lance Coles MD, PhD LAB BLOOD ORDERABLES Final R esult Performing Organization Address City/[facility] Co de Phone Number [facility] LIC# [id number] [address] [place] [address] * (ABNORMAL) Comprehensive metabolic panel (03/03/2025 1:33 PM EDT) SODIUM 138 136 - 145 mmol/L [facility] LIC# [id number] POTASSIUM 3.9 3.4 - 5.1 mmol/L [facility] LIC# [id number] CHLORIDE 103 98 - 107 mmol/L [facility] LIC# [id number] CO2 23 22 - 31 mmol/L [facility] LIC# [id number] BUN 11 6 - 23 mg/dL [facility] LIC# [id number] CREATININE 0.85 0.50 - 1.20 mg/dL [facility] LIC# [id number] GLUCOSE 155(H) 70 - 100 mg/dL [facility] LIC# [id number] ALBUMIN 3.8 3.5 - 5.2 g/dL [facility] LIC# [id number] TOTAL PROTEIN 6.8 6.4 - 8.3 g/dL [facility] LIC# [id number] CALCIUM 9.1 8.8 - 10.7 mg/dL [facility] LIC# [id number] ALKALINE PHOSPHATASE 73 40 - 129 U/L [facility] LIC# [id number] TOTAL BILIRUBIN 0.2 0.2 - 1.2 mg/dL [facility] LIC# [id number] AST 16 <41 U/L [facility] LIC# [id number] ALT 15 <42 U/L [facility] LIC# [id number] GLOBULIN 3.0 2.3 - 4.2 g/dL [facility] LIC# [id number] EGFR 96 >59 mL/min/1.7 3m2 [facility] LIC# [id number] Comment:Estimated glomerular filtration rate calculated using the CKD-EPI refit equation. ANION GAP 12 7 - 17 mmol/L [facility] LIC# [id number] Blood 03/03/2025 1:33 PM EDT 03/03/2025 1:48 PM EDT us Owen Quan MD LAB BLOOD ORDERABLES Final Result [facility] LIC# [id number] [address] [place] [address] * (ABNORMAL) CBC and differential (03/03/2025 1:33 PM EDT) WBC 8.08 4.00 - 10.00 K/uL [facility] LIC# [id number] RBC 4.02(L) 4.50 - 6.40 M/uL [facility] LIC# [id number] HGB 11.9(L) 13.5 - 18.0 g/dL [facility] LIC# [id number] HCT 36.0(L) 40.0 - 54.0 % [facility] LIC# [id number] PLT 268 150 - 450 K/uL [facility] LIC# [id number] MCV 89.6 80.0 - 100.0 fL [facility] LIC# [id number] MCH 29.6 27.0 - 32.0 pg [facility] LIC# [id number] MCHC 33.1 32.0 - 36.0 g/dL [facility] LIC# [id number] RDW 12.8 11.5 - 14.5 % [facility] LIC# [id number] MPV 9.1 8.4 - 12.0 fL [facility] LIC# [id number] NRBC 0.00 0 /100 WBCs [facility] LIC# [id number] ABSOLUTE NRBC 0.00 0 K/uL [facility] LIC# [id number] DIFF METHOD [employer] [facility] LIC# [id number] NEUTS 29.5(L) 48.0 - 76.0 % [facility] LIC# [id number] LYMPHS 55.1(H) 18.0 - 41.0 % [facility] LIC# [id number] MONOS 7.2 4.0 - 11.0 % [facility] LIC# [id number] EOS 6.6(H) 0.0 - 5.0 % [facility] LIC# [id number] BASOS 1.5 0.0 - 1.5 % [facility] LIC# [id number] % IMMATURE GRANS 0.1 0.0 - 1.0 % [facility] LIC# [id number] ABSOLUTE NEUTS 2.39 1.92 - 7.60 K/uL [facility] LIC# [id number] ABSOLUTE LYMPHS 4.45(H) 0.72 - 4.10 K/uL [facility] LIC# [id number] ABSOLUTE MONOS 0.58 0.16 - 1.10 K/uL [facility] LIC# [id number] ABSOLUTE EOS 0.53(H) 0.00 - 0.50 K/uL [facility] LIC# [id number] ABSOLUTE BASOS 0.12 0.00 - 0.15 K/uL [facility] LIC# [id number] ABS IMMATURE GRANS 0.01 0.00 - 0.10 K/uL [facility] LIC# [id number] Blood 03/03/2025 1:33 PM EDT 03/03/2025 1:48 PM EDT us Owen Quan MD LAB BLOOD ORDERABLES Final Result [facility] LIC# [id number] [address] [place] [address] * ENDOSCOPY PROCEDURE (02/24/2025 3:39 PM EDT) 02/24/2025 3:39 PM EDT Narrative Transcriptions Katia Caceres MBBS, MPH - 02/24/2025 3:39 PM EDT [facility] Gastroenterology Patient Name: Hernan Sharpe Procedure Date: 02/24/2025 3:39 PM Date of : 1960 Admit Type: Outpatient Age: 64 Room: 4 Gender: Male Note Status: Finalized Attending MD: KATIA CACERES MD, Instrument Name: [id number] Procedure: Upper GI endoscopy Indications: Abdominal pain Providers: KATIA CACERES MD, Cele Hooper RN Referring MD: BRENT COLLINS MD (Referring MD) Medicines: Fentanyl 100 micrograms [...] Repeat upper endoscopy in 12 weeks. Katia Caceres MD [id number] KATIA CACERES MD 02/24/2025 4:38:40 PM Number of Addenda: 0 Note Initiated On: 02/24/2025 3:39 PM Brent Collins MD GI PROCEDURE ORDERABLES Final Result * Anatomic Pathology (02/24/2025 12:00 AM EDT) 02/24/2025 02/25/[address] [facility] CLINICAL LABORATORIES - 03/05/2025 5:22 PM EDT CASE: [id number] PATIENT: HERNAN SROKA Date: 1960 Sex: Male [facility] [place] [employer] Department of Pathology [address] [place] [address] License No.: [id number] It Support Manager: Dr. Lamont Tam M.D., Ph.D. Physician: SHAHAB [...] GUDINO, MPH PATHOLOGY ORDERABLES Fin al Result [facility] CLINICAL LABORATORIES [address] [place] [address] * Hepatitis C antibody, qualitative (09/02/2024 3:14 PM EST) HCV Nonreactive Nonreactive [facility] LIC# [id number] Comment:Antibodies to HCV no t detected. Does not exclude the possibility of exposure to HCV. Blood 09/02/2024 3:14 PM EST 09/02/2024 3:19 PM EST us Lance Coles MD, PhD LAB BLOOD ORDERABLES Final R esult Performing Organization Address City/[facility] Co de Phone Number [facility] LIC# [id number] [address] [place] [address] from Last 3 Months or Most Recently Relevant to Health Maintenance Insurance [place] [address] [place] [address] OUT OF [facility] PPO BLUE CROSS OUT OF STATE PPO Care Teams Customer Service Operator Relationship Specialty Start Date End Date Brent Collins MD [address] [facility] [place] [address] PCP - General Internal Medicine 02/21/20 Owen Quan MD [address] [place] [address] [email or web address] Medical Oncology 09/24/21 Additional Source Comments The information contained in this document represents components of the legal health record. It is not the complete legal health record.[facility]
--- OUTSIDE RECORDS SUMMARY | 2025-05-16 14:53 | XMS_ITS | Encounter Summary ---
Author Organization [employer] [facility] Address [address] [place] [address] Phone Care Team Providers Care Earthmoving Labourer Name Role Phone Flower Bliss MD Primary Care Provider [phone] Owen Quan MD Unavailable [phone] Encounter Details Date Type Department Care Team (Late st Contact Info) Description 07/12/2024 Procedure Pass [facility], Ct Scan - [address] [address] Social History Tobacco Use Types Packs/Day Years [...] (Latest Contact Info) Description 06/23/2025 Procedure Pass [facility] Endoscopy Department [address] [place] [address] 06/23/2025 4:00 PM EST Hospital Encounter [facility] Endoscopy Department [address] [place] [address] Catherine Caceres MBBS, MPH [address] [place] [address] YOSHICHRISTOPHER@[facility] 06/23/2025 4:00 PM EST - 06/23/2025 4:45 PM EST Surgery [facility] Endoscopy Department [address] [place] [address] Catherine Caceres MBBS, MPH [address] [place] [address] POLLO@[facility] ESOPHAGOGASTRODUODENOSCOPY 09/08/2025 3:30 PM EST Blood Draw Laboratory Services, [address] 2nd [place] [address] Lance Coles MD, PhD [address] [place], [place] [address] [place] [address] Marcial@[email or web address] 09/08/2025 4:30 PM EST Office Visit [facility] for Lymphoma, Division of Hematologic Oncology, [address], [address] [place] [address] Lance Coles MD, PhD [address] [place] [address] [place] [address] Marcial@[email or web address] Scheduled Procedures Name Priority Associated Diagnoses Date/Ti me ESOPHAGOGASTRODUODENOSCOPY Esophagitis 06/23/2025 4:00 PM EST documented as of this encounter Visit Diagnoses Not on filedocumented in this encounter Care Teams Earthmoving Labourer Relationship Specialty Start Date End Date Flower Bliss MD [address] [facility] [place] [address] PCP - General Internal Medicine 02/21/20 Owen Quan MD [address] [place] [address] [email or web address] Medical Oncology 09/24/21 documented as of this encounter Additional Source Comments The information contained in this document represents components of the legal health record. It is not the complete legal health record.[facility]
--- OUTSIDE RECORDS SUMMARY | 2025-05-16 14:54 | XMS_ITS | Encounter Summary ---
Author Organization [employer] [facility] Address [address] [place] [address] Phone Care Team Providers Care Audio/Video Technician Name Role Phone Flower Bliss MD Primary Care Provider [phone] Owen Quan MD Unavailable [phone] Encounter Details Date Type Department Care Team (Late st Contact Info) Description 07/26/2021 Procedure Pass [facility] Cross Sectional Interventional Radiology [address] [place] [address] Social History Tobacco Use Types Packs/Day Years [...] (Latest Contact Info) Description 06/23/2025 Procedure Pass [facility] Endoscopy Department [address] [place] [address] 06/23/2025 4:00 PM EST Hospital Encounter [facility] Endoscopy Department [address] [place] [address] Catherine Caceres MBBS, MPH [address] [place] [address] [email or web address] 06/23/2025 4:00 PM EST - 06/23/2025 4:45 PM EST Surgery [facility] Endoscopy Department [address] [place] [address] Catherine Caceres MBBS, MPH [address] [place] [address] POLLO@[facility] ESOPHAGOGASTRODUODENOSCOPY 09/08/2025 3:30 PM EST Blood Draw Laboratory Services, [address] 2nd [place] [address] Lance Coles MD, PhD [address] [place] [address] [place] [address] Marcial@[facility] 09/08/2025 4:30 PM EST Office Visit [facility], Division of Hematologic Oncology, [address], 7[address] [place] [address] Lance Coles MD, PhD [address] [place] [address] [place] [address] Marcial@[facility] Scheduled Procedures Name Priority Associated Diagnoses Date/Ti me ESOPHAGOGASTRODUODENOSCOPY Esophagitis 06/23/2025 4:00 PM EST documented as of this encounter Visit Diagnoses Not on filedocumented in this encounter Care Teams Audio/Video Technician Relationship Specialty Start Date End Date Flower Bliss MD [address] [place] [address] PCP - General Internal Medicine 02/21/20 Owen Quan MD [address] [place] [address] [email or web address] Medical Oncology 09/24/21 documented as of this encounter Additional Source Comments The information contained in this document represents components of the legal health record. It is not the complete legal health record.[facility]
--- OUTSIDE RECORDS SUMMARY | 2025-05-16 14:54 | XMS_ITS | Encounter Summary ---
Author Organization [employer] [facility] Address [address] [place] [address] Phone Care Team Providers Care Hospice Team Lead Name Role Phone Flower Bliss MD Primary Care Provider [phone] Owen Quan MD Unavailable [phone] Encounter Details Date Type Department Care Team (Late st Contact Info) Description 07/24/2021 Transcribe Orders [address] [address] Unknown, Unknown, Social History Tobacco Use Types [...] Pass [facility] Endoscopy Department [address] [place] [address] 06/23/2025 4:00 PM EST Hospital Encounter [facility] Endoscopy Department [address] [place] [address] Catherine Caceres MBBS, MPH [address] [place] [address] POLLO@[email or web address] 06/23/2025 4:00 PM EST - 06/23/2025 4:45 PM EST Surgery [facility] Endoscopy Department [address] [place] [address] Catherine Caceres MBBS, MPH [address] [place] [address], [facility] [place] [address] POLLO@[email or web address] ESOPHAGOGASTRODUODENOSCOPY 09/08/2025 3:30 PM EST Blood Draw Laboratory Services, [address] 2nd [place] [address] Lance Coles MD, PhD [address] [place] [address] [place] [address] Marcial@[facility] 09/08/2025 4:30 PM EST Office Visit [facility], Division of Hematologic Oncology, [address], 7[address] [place] [address] Lance Coles MD, PhD [address] [place] [address] [place] [address] Marcial@[facility] Scheduled Procedures Name Priority Associated Diagnoses Date/Ti me ESOPHAGOGASTRODUODENOSCOPY Esophagitis 06/23/2025 4:00 PM EST documented as of this encounter Visit Diagnoses Not on filedocumented in this encounter Care Teams Hospice Team Lead Relationship Specialty Start Date End Date Flower Bliss MD [address] [facility] [place] [address] PCP - General Internal Medicine 02/21/20 Owen Quan MD [address] [place] [address] [email or web address] Medical Oncology 09/24/21 documented as of this encounter Additional Source Comments The information contained in this document represents components of the legal health record. It is not the complete legal health record.[facility]
--- OUTSIDE RECORDS SUMMARY | 2025-05-16 14:54 | XMS_ITS | Encounter Summary ---
Author Organization [employer] [facility] Address [address] [place] [address] Phone Care Team Providers Care Scarifier Operator Name Role Phone Flower Bliss MD Primary Care Provider [phone] Owen Quan MD Unavailable [phone] Encounter Details Date Type Department Care Team (Late st Contact Info) Description 09/05/2021 Procedure Pass [address] [address] Social History Tobacco Use Types Packs/Day Years [...] Info) Description 06/23/2025 Procedure Pass [facility] Endoscopy Department [address] [place] [address] 06/23/2025 4:00 PM EST Hospital Encounter [facility] Endoscopy Department [address] [place] [address] Catherine Caceres MBBS, MPH [address] [place] [address] POLLO@[email or web address] 06/23/2025 4:00 PM EST - 06/23/2025 4:45 PM EST Surgery [facility] Endoscopy Department [address] [place] [address] Catherine Caceres MBBS, MPH [address] [place] [address] POLLO@[facility] ESOPHAGOGASTRODUODENOSCOPY 09/08/2025 3:30 PM EST Blood Draw Laboratory Services, [address], 2nd [place] [address] Lance Coles MD, PhD [address] [place] [address] [place] [address] Marcial@[facility] 09/08/2025 4:30 PM EST Office Visit [facility], Division of Hematologic Oncology, [address], 7th [place] [address] Lance Coles MD, PhD [address] [place] [address] [place] [address] Marcial@[facility] Scheduled Procedures Name Priority Associated Diagnoses Date/Ti me ESOPHAGOGASTRODUODENOSCOPY Esophagitis 06/23/2025 4:00 PM EST documented as of this encounter Visit Diagnoses Not on filedocumented in this encounter Care Teams Scarifier Operator Relationship Specialty Start Date End Date Flower Bliss MD [address] [facility] [place] [address] PCP - General Internal Medicine 02/21/20 Owen Quan MD [address] [place] [address] Laureano@[facility] Medical Oncology 09/24/21 documented as of this encounter Additional Source Comments The information contained in this document represents components of the legal health record. It is not the complete legal health record.[facility]
--- OUTSIDE RECORDS SUMMARY | 2025-05-16 14:54 | XMS_ITS | Encounter Summary ---
Author Organization [employer] [facility] Address [address] [facility] [address] [place] [address] Phone Care Team Providers Care Embroidery Cutter Name Role Phone Flower Bliss MD Primary Care Provider [phone] Owen Quan MD Unavailable [phone] Encounter Details Date Type Department Care Team (Late st Contact Info) Description 05/05/2022 Procedure Pass [facility], Ct Scan - [address] [address] Social History Tobacco Use Types Packs/Day Years [...] (Latest Contact Info) Description 06/23/2025 Procedure Pass [facility] Endoscopy Department [address] [place] [address] 06/23/2025 4:00 PM EST Hospital Encounter [facility] Endoscopy Department [address] [place] [address] Catherine Caceres MBBS, MPH [address] [place] [address] POLLO@[facility] 06/23/2025 4:00 PM EST - 06/23/2025 4:45 PM EST Surgery [facility] Endoscopy Department [address] [place] [address] Catherine Caceres MBBS, MPH [address] [place] [address] POLLO@[facility] ESOPHAGOGASTRODUODENOSCOPY 09/08/2025 3:30 PM EST Blood Draw Laboratory Services, [address], 2nd [place] [address] Lance Coles MD, PhD [address] [place] [address] [place] [address] Marcial@[facility] 09/08/2025 4:30 PM EST Office Visit [facility], Division of Hematologic Oncology, [address], [address] [place] [address] Lance Coles MD, PhD [address] [place] [address] [place] [address] Marcial@[facility] Scheduled Procedures Name Priority Associated Diagnoses Date/Ti me ESOPHAGOGASTRODUODENOSCOPY Esophagitis 06/23/2025 4:00 PM EST documented as of this encounter Visit Diagnoses Not on filedocumented in this encounter Care Teams Embroidery Cutter Relationship Specialty Start Date End Date Flower Bliss MD [address] [facility] [place] [address] PCP - General Internal Medicine 02/21/20 Owen Quan MD [address] [place] [address] Laureano@[facility] Medical Oncology 09/24/21 documented as of this encounter Additional Source Comments The information contained in this document represents components of the legal health record. It is not the complete legal health record.[facility]
--- OUTSIDE RECORDS SUMMARY | 2025-05-16 14:54 | XMS_ITS | Encounter Summary ---
Author Organization [employer] [facility] Address [address] [facility] [address] [place] [address] Phone Care Team Providers Care Director Of Services Name Role Phone Flower Bliss MD Primary Care Provider [phone] Owen Quan MD Unavailable [phone] Encounter Details Date Type Department Care Team (Late st Contact Info) Description 10/09/2022 Procedure Pass [facility], Ct Scan - [address] [address] Social History Tobacco Use Types Packs/Day Years [...] Procedure Pass [facility] Endoscopy Department [address] [place] [address] 06/23/2025 4:00 PM EST Hospital Encounter [facility] Endoscopy Department [address] [place] [address] Catherine Caceres MBBS, MPH [address] [place] [address] POLLO@[email or web address] 06/23/2025 4:00 PM EST - 06/23/2025 4:45 PM EST Surgery [facility] Endoscopy Department [address] [place] [address] Catherine Caceres MBBS, MPH [address] [place] [address] POLLO@[facility] ESOPHAGOGASTRODUODENOSCOPY 09/08/2025 3:30 PM EST Blood Draw Laboratory Services, [address], 2nd [place] [address] Lance Coles MD, PhD [address] [place] [address] [place] [address] Marcial@[facility] 09/08/2025 4:30 PM EST Office Visit [facility], Division of Hematologic Oncology, [address], 7[address] [place] [address] Lance Coles MD, PhD [address] [place] [address] [place] [address] Marcial@[facility] Scheduled Procedures Name Priority Associated Diagnoses Date/Ti me ESOPHAGOGASTRODUODENOSCOPY Esophagitis 06/23/2025 4:00 PM EST documented as of this encounter Visit Diagnoses Not on filedocumented in this encounter Care Teams Director Of Services Relationship Specialty Start Date End Date Flower Bliss MD [address] [facility] [address] PCP - General Internal Medicine 02/21/20 Owen Quan MD [address] [place] [address] Laureano@[facility] Medical Oncology 09/24/21 documented as of this encounter Additional Source Comments The information contained in this document represents components of the legal health record. It is not the complete legal health record.[facility]
--- OUTSIDE RECORDS SUMMARY | 2025-05-16 14:54 | XMS_ITS | Encounter Summary ---
Author Organization [employer] [facility] Address [address] [place] [address] Phone Care Team Providers Care Waste Transportation Technician Name Role Phone Flower Bliss MD Primary Care Provider [phone] Owen Quan MD Unavailable [phone] Encounter Details Date Type Department Care Team (Late st Contact Info) Description 09/07/2023 Procedure Pass [facility], Ct Scan - [address] [address] Social History Tobacco Use Types Packs/Day Years [...] (Latest Contact Info) Description 06/23/2025 Procedure Pass [facility] Endoscopy Department [address] [place] [address] 06/23/2025 4:00 PM EST Hospital Encounter [facility] Endoscopy Department [address] [place] [address] Catherine Caceres MBBS, MPH [address] [place] [address] YOSHICHRISTOPHER@[facility] 06/23/2025 4:00 PM EST - 06/23/2025 4:45 PM EST Surgery [facility] Endoscopy Department [address] [place] [address] Catherine Caceres MBBS, MPH [address] [place] [address] POLLO@[facility] ESOPHAGOGASTRODUODENOSCOPY 09/08/2025 3:30 PM EST Blood Draw Laboratory Services, [address], 2nd [place] [address] Lance Coles MD, PhD [address] [place], [place] [address] [place] [address] Marcial@[facility] 09/08/2025 4:30 PM EST Office Visit [facility], Division of Hematologic Oncology, [address], 7th [place] [address] Lance Coles MD, PhD [address] [place] [address] [place] [address] Marcial@[facility] Scheduled Procedures Name Priority Associated Diagnoses Date/Ti me ESOPHAGOGASTRODUODENOSCOPY Esophagitis 06/23/2025 4:00 PM EST documented as of this encounter Visit Diagnoses Not on filedocumented in this encounter Care Teams Waste Transportation Technician Relationship Specialty Start Date End Date Flower Bliss MD [address] [facility] [place] [address] PCP - General Internal Medicine 02/21/20 Owen Quan MD [address] [place] [address] Laureano@[facility] Medical Oncology 09/24/21 documented as of this encounter Additional Source Comments The information contained in this document represents components of the legal health record. It is not the complete legal health record.[facility]
--- OUTSIDE RECORDS SUMMARY | 2025-05-16 14:54 | XMS_ITS | Encounter Summary ---
Author Organization [email or web address] Address [address] [place] [address] Phone Care Team Providers Care Rent And Housing Investigator Name Role Phone Flower Bliss MD Primary Care Provider [phone] Owen Quan MD Unavailable [phone] Encounter Details Date Type Department Care Team (Late st Contact Info) Description 01/13/2023 Procedure Pass [facility], Ct Scan - [address] [address] Social History Tobacco Use Types Packs/Day Years [...] Pass [facility] Endoscopy Department [address] [place] [address] 06/23/2025 4:00 PM EST Hospital Encounter [facility] Endoscopy Department [address] [place] [address] Catherine Caceres MBBS, MPH [address] [place] [address] YOSHICHRISTOPHER@[facility] 06/23/2025 4:00 PM EST - 06/23/2025 4:45 PM EST Surgery [facility] Endoscopy Department [address] [place] [address] Catherine Caceres MBBS, MPH [address] [place] [address] POLLO@[facility] ESOPHAGOGASTRODUODENOSCOPY 09/08/2025 3:30 PM EST Blood Draw Laboratory Services, [address], 2nd [place] [address] Lance Coles MD, PhD [address] [place], [place] [address] [place] [address] Marcial@[facility] 09/08/2025 4:30 PM EST Office Visit [facility], Division of Hematologic Oncology, [address], [address] [place] [address] Lance Coles MD, PhD [address] [place] [address]#[address] [place] [address] Marcial@[facility] Scheduled Procedures Name Priority Associated Diagnoses Date/Ti me ESOPHAGOGASTRODUODENOSCOPY Esophagitis 06/23/2025 4:00 PM EST documented as of this encounter Visit Diagnoses Not on filedocumented in this encounter Care Teams Rent And Housing Investigator Relationship Specialty Start Date End Date Flower Bliss MD [address] [facility] [place] [address] PCP - General Internal Medicine 02/21/20 Owen Quan MD [address] [place] [address] Laureano@[email or web address] Medical Oncology 09/24/21 documented as of this encounter Additional Source Comments The information contained in this document represents components of the legal health record. It is not the complete legal health record.[facility]
--- OUTSIDE RECORDS SUMMARY | 2025-05-16 14:54 | XMS_ITS | Encounter Summary ---
Author Organization [facility] Address [address] [facility] [address] [place] [address] Phone Care Team Providers Care Collections Director Name Role Phone Flower Bliss MD Primary Care Provider [phone] Owen Quan MD Unavailable [phone] Encounter Details Date Type Department Care Team (Late st Contact Info) Description 01/10/2022 Procedure Pass [address] [address] Social History Tobacco Use Types Packs/Day Years [...] (Latest Contact Info) Description 06/23/2025 Procedure Pass [facility] Endoscopy Department [address] [place] [address] 06/23/2025 4:00 PM EST Hospital Encounter [facility] Endoscopy Department [address] [place] [address] Catherine Caceres MBBS, MPH [address] [place] [address] POLLO@[facility] 06/23/2025 4:00 PM EST - 06/23/2025 4:45 PM EST Surgery [facility] Endoscopy Department [address] [place] [address] Catherine Caceres MBBS, MPH [address] [place] [address], [facility] [place] [address] POLLO@[facility] ESOPHAGOGASTRODUODENOSCOPY 09/08/2025 3:30 PM EST Blood Draw Laboratory Services, [address], 2nd [place] [address] Lance Coles MD, PhD [address] [place] [address]#[address] [place] [address] Marcial@[facility] 09/08/2025 4:30 PM EST Office Visit [facility], Division of Hematologic Oncology, [address], 7[address] [place] [address] Lance Coles MD, PhD [address] [place] [address] [place] [address] Marcial@[facility] Scheduled Procedures Name Priority Associated Diagnoses Date/Ti me ESOPHAGOGASTRODUODENOSCOPY Esophagitis 06/23/2025 4:00 PM EST documented as of this encounter Visit Diagnoses Not on filedocumented in this encounter Care Teams Collections Director Relationship Specialty Start Date End Date Flower Bliss MD [address] [facility] [place] [address] PCP - General Internal Medicine 02/21/20 Owen Quan MD [address] [place] [address] Laureano@[facility] Medical Oncology 09/24/21 documented as of this encounter Additional Source Comments The information contained in this document represents components of the legal health record. It is not the complete legal health record.[facility]
--- OUTSIDE RECORDS SUMMARY | 2025-05-16 14:54 | XMS_ITS | Encounter Summary ---
Author Organization [employer] [facility] Address [address] [facility] [address] [address] Phone Care Team Providers Care Tool Storage Attendant Name Role Phone Flower Bliss MD Primary Care Provider [phone] Owen Quan MD Unavailable [phone] Encounter Details Date Type Department Care Team (Late st Contact Info) Description 12/24/2021 Procedure Pass [facility], Ct Scan - [address] [address] Social History Tobacco Use Types Packs/Day Years [...] Pass [facility] Endoscopy Department [address] [place] [address] 06/23/2025 4:00 PM EST Hospital Encounter [facility] Endoscopy Department [address] [place] [address] Catherine Caceres MBBS, MPH [address] [place] [address] POLLO@[email or web address] 06/23/2025 4:00 PM EST - 06/23/2025 4:45 PM EST Surgery [facility] Endoscopy Department [address] [place] [address] Catherine Caceres MBBS, MPH [address] [place] [address] POLLO@[facility] ESOPHAGOGASTRODUODENOSCOPY 09/08/2025 3:30 PM EST Blood Draw Laboratory Services, [address], 2nd [place] [address] Lance Coles MD, PhD [address] [place] [address]#7 [place] [address] Marcial@[facility] 09/08/2025 4:30 PM EST Office Visit [facility], Division of Hematologic Oncology, [address], [address]th [place] [address] Lance Coles MD, PhD [address] [place] [address]#[address] [place] [address] Marcial@[facility] Scheduled Procedures Name Priority Associated Diagnoses Date/Ti me ESOPHAGOGASTRODUODENOSCOPY Esophagitis 06/23/2025 4:00 PM EST documented as of this encounter Visit Diagnoses Not on filedocumented in this encounter Care Teams Tool Storage Attendant Relationship Specialty Start Date End Date Flower Bliss MD 1963 [facility] [place] [address] PCP - General Internal Medicine 02/21/20 Owen Quan MD [address] [place] [address] Laureano@[facility] Medical Oncology 09/24/21 documented as of this encounter Additional Source Comments The information contained in this document represents components of the legal health record. It is not the complete legal health record.[facility]
--- OUTSIDE RECORDS SUMMARY | 2025-05-16 14:54 | XMS_ITS | Encounter Summary ---
Author Organization [employer] [facility] Address [address] [place] [address] Phone Care Team Providers Care Technical Project Lead Name Role Phone Flower Bliss MD Primary Care Provider [phone] Owen Quan MD Unavailable [phone] Encounter Details Date Type Department Care Team (Late st Contact Info) Description 09/07/2023 Procedure Pass [facility], Ct Scan - [address] [address] Social History Tobacco Use Types Packs/Day Years [...] (Latest Contact Info) Description 06/23/2025 Procedure Pass [facility] Endoscopy Department [address] [place] [address] 06/23/2025 4:00 PM EST Hospital Encounter [facility] Endoscopy Department [address] [place] [address] Catherine Caceres MBBS, MPH [address] [place] [address] YOSHICHRISTOPHER@[facility] 06/23/2025 4:00 PM EST - 06/23/2025 4:45 PM EST Surgery [facility] Endoscopy Department [address] [place] [address] Catherine Caceres MBBS, MPH [address] [place] [address] POLLO@[facility] ESOPHAGOGASTRODUODENOSCOPY 09/08/2025 3:30 PM EST Blood Draw Laboratory Services, [address], 2nd [place] [address] Lance Coles MD, PhD [address] [place], [place] [address] [place] [address] Marcial@[facility] 09/08/2025 4:30 PM EST Office Visit [facility], Division of Hematologic Oncology, [address], 7[address] [place] [address] Lance Coles MD, PhD [address] [place] [address]#[address] [place] [address] Marcial@[facility] Scheduled Procedures Name Priority Associated Diagnoses Date/Ti me ESOPHAGOGASTRODUODENOSCOPY Esophagitis 06/23/2025 4:00 PM EST documented as of this encounter Visit Diagnoses Not on filedocumented in this encounter Care Teams Technical Project Lead Relationship Specialty Start Date End Date Flower Bliss MD [address] [facility] [place] [address] PCP - General Internal Medicine 02/21/20 Owen Quan MD [address] [place] [address] [email or web address] Medical Oncology 09/24/21 documented as of this encounter Additional Source Comments The information contained in this document represents components of the legal health record. It is not the complete legal health record.[facility]
--- OUTSIDE RECORDS SUMMARY | 2025-05-16 14:54 | XMS_ITS | Encounter Summary ---
Author Organization [employer] [facility] Address [address] [facility] [address] [place] [address] Phone Care Team Providers Care Marketing Programs Manager Name Role Phone Flower Bliss MD Primary Care Provider [phone] Owen Quan MD Unavailable [phone] Encounter Details Date Type Department Care Team (Late st Contact Info) Description 12/24/2021 Procedure Pass [facility], Ct Scan - [address] [address] Social History Tobacco Use Types Packs/Day Years [...] (Latest Contact Info) Description 06/23/2025 Procedure Pass [facility] Endoscopy Department [address] [place] [address] 06/23/2025 4:00 PM EST Hospital Encounter [facility] Endoscopy Department [address] [place] [address] Catherine Caceres MBBS, MPH [address] [place] [address] POLLO@[email or web address] 06/23/2025 4:00 PM EST - 06/23/2025 4:45 PM EST Surgery [facility] Endoscopy Department [address] [place] [address] Catherine Caceres MBBS, MPH [address] [place] [address] POLLO@[facility] ESOPHAGOGASTRODUODENOSCOPY 09/08/2025 3:30 PM EST Blood Draw Laboratory Services, [address], 2nd [place] [address] Lance Coles MD, PhD [address] [place] [address]#[address] [place] [address] Marcial@[facility] 09/08/2025 4:30 PM EST Office Visit [facility], Division of Hematologic Oncology, [address], [address] [place] [address] Lance Coles MD, PhD [address] [place] [address]#[address] [place] [address] Marcial@[facility] Scheduled Procedures Name Priority Associated Diagnoses Date/Ti me ESOPHAGOGASTRODUODENOSCOPY Esophagitis 06/23/2025 4:00 PM EST documented as of this encounter Visit Diagnoses Not on filedocumented in this encounter Care Teams Marketing Programs Manager Relationship Specialty Start Date End Date Flower Bliss MD [address] [facility] [place] [address] PCP - General Internal Medicine 02/21/20 Owen Quan MD [address] [place] [address] Laureano@[facility] Medical Oncology 09/24/21 documented as of this encounter Additional Source Comments The information contained in this document represents components of the legal health record. It is not the complete legal health record.[facility]
--- OUTSIDE RECORDS SUMMARY | 2025-05-16 14:54 | XMS_ITS | Encounter Summary ---
Author Organization [employer] [facility] Address [address] [place] [address] Phone Care Team Providers Care Ultrasound Technician Name Role Phone Flower Bliss MD Primary Care Provider [phone] Owen Quan MD Unavailable [phone] Encounter Details Date Type Department Care Team (Late st Contact Info) Description 07/17/2023 Procedure Pass , Ct Scan - [address] [address] Social History Tobacco Use Types Packs/Day Years [...] (Latest Contact Info) Description 06/23/2025 Procedure Pass [facility] Endoscopy Department [address] [place] [address] 06/23/2025 4:00 PM EST Hospital Encounter [facility] Endoscopy Department [address] [place] [address] Catherine Caceres MBBS, MPH [address] [place] [address] YOSHICHRISTOPHER@[facility] 06/23/2025 4:00 PM EST - 06/23/2025 4:45 PM EST Surgery [facility] Endoscopy Department [address] [place] [address] Catherine Caceres MBBS, MPH [address] [place] [address] POLLO@[facility] ESOPHAGOGASTRODUODENOSCOPY 09/08/2025 3:30 PM EST Blood Draw Laboratory Services, [address], 2nd [place] [address] Lance Coles MD, PhD [address] [place], [place] [address] [place] [address] Marcial@[facility] 09/08/2025 4:30 PM EST Office Visit [facility], Division of Hematologic Oncology, [address], 7th [place] [address] Lance Coles MD, PhD [address] [place] [address] [place] [address] Marcial@[facility] Scheduled Procedures Name Priority Associated Diagnoses Date/Ti me ESOPHAGOGASTRODUODENOSCOPY Esophagitis 06/23/2025 4:00 PM EST documented as of this encounter Visit Diagnoses Not on filedocumented in this encounter Care Teams Ultrasound Technician Relationship Specialty Start Date End Date Flower Bliss MD [address] [facility] [place] [address] PCP - General Internal Medicine 02/21/20 Owen Quan MD [address] [place] [address] Laureano@[email or web address] Medical Oncology 09/24/21 documented as of this encounter Additional Source Comments The information contained in this document represents components of the legal health record. It is not the complete legal health record.[facility]
--- OUTSIDE RECORDS SUMMARY | 2025-05-16 14:54 | XMS_ITS | Encounter Summary ---
Author Organization [employer] [facility] Address [address] [facility] [address] [place] [address] Phone Care Team Providers Care Account Solutions Analyst Name Role Phone Flower Bliss MD Primary Care Provider Owen Quan MD Unavailable [phone] Encounter Details Date Type Department Care Team (Late st Contact Info) Description 05/05/2022 Procedure Pass [facility], Ct Scan - [address] [address] Social History Tobacco Use Types Packs/Day Years [...] (Latest Contact Info) Description 06/23/2025 Procedure Pass [facility] Endoscopy Department [address] [place] [address] 06/23/2025 4:00 PM EST Hospital Encounter [facility] Endoscopy Department [address] [place] [address] Catherine Caceres MBBS, MPH [address] [place] [address] POLLO@[email or web address] 06/23/2025 4:00 PM EST - 06/23/2025 4:45 PM EST Surgery [facility] Endoscopy Department [address] [place] [address] Catherine Caceres MBBS, MPH [address] [place] [address] POLLO@[facility] ESOPHAGOGASTRODUODENOSCOPY 09/08/2025 3:30 PM EST Blood Draw Laboratory Services, [address], 2nd [place] [address] Lance Coles MD, PhD [address] [place] [address] [place] [address] Marcial@[facility] 09/08/2025 4:30 PM EST Office Visit [facility], Division of Hematologic Oncology, [address], 7th [place] [address] Lance Coles MD, PhD [address] [place] [address] [place] [address] Marcial@[facility] Scheduled Procedures Name Priority Associated Diagnoses Date/Ti me ESOPHAGOGASTRODUODENOSCOPY Esophagitis 06/23/2025 4:00 PM EST documented as of this encounter Visit Diagnoses Not on filedocumented in this encounter Care Teams Account Solutions Analyst Relationship Specialty Start Date End Date Flower Bliss MD [address] [facility] [place] [address] PCP - General Internal Medicine 02/21/20 Owen Quan MD [address] [place] [address] Laureano@[facility] Medical Oncology 09/24/21 documented as of this encounter Additional Source Comments The information contained in this document represents components of the legal health record. It is not the complete legal health record.[facility]
--- OUTSIDE RECORDS SUMMARY | 2025-05-16 14:54 | XMS_ITS | Encounter Summary ---
Author Organization [employer] [facility] Address [address] [place] [address] Phone Care Team Providers Care Apartment Maintenance Technician Name Role Phone Flower Bliss MD Primary Care Provider [phone] Owen Quan MD Unavailable [phone] Encounter Details Date Type Department Care Team (Late st Contact Info) Description 01/13/2023 Procedure Pass [facility], Ct Scan - [address] [address] Social History Tobacco Use Types Packs/Day Years [...] Contact Info) Description 06/23/[address] [facility] Endoscopy Department [address] [place] [address] 06/23/2025 4:00 PM EST Hospital Encounter [facility] Endoscopy Department [address] [place] [address] Catherine Caceres MBBS, MPH [address] [place] [address] YOSHICHRISTOPHER@[facility] 06/23/2025 4:00 PM EST - 06/23/2025 4:[address] [facility] Endoscopy Department [address] [place] [address] Catherine Caceres MBBS, MPH [address] [place] [address] POLLO@[facility] ESOPHAGOGASTRODUODENOSCOPY 09/08/2025 3:30 PM EST Blood Draw Laboratory Services, [address], 2nd [place] [address] Lance Coles MD, PhD [address] [place], [place] [address] [place] [address] Marcial@[facility] 09/08/2025 4:30 PM EST Office Visit [facility], Division of Hematologic Oncology, [address], 7th [place] [address] Lance Coles MD, PhD [address] [place] [address]#[address] [place] [address] Marcial@[facility] Scheduled Procedures Name Priority Associated Diagnoses Date/Ti me ESOPHAGOGASTRODUODENOSCOPY Esophagitis 06/23/2025 4:00 PM EST documented as of this encounter Visit Diagnoses Not on filedocumented in this encounter Care Teams Apartment Maintenance Technician Relationship Specialty Start Date End Date Flower Bliss MD [address] [facility] [place] [address] PCP - General Internal Medicine 02/21/20 Owen Quan MD [address] [place] [address] [email or web address] Medical Oncology 09/24/21 documented as of this encounter Additional Source Comments The information contained in this document represents components of the legal health record. It is not the complete legal health record.[facility]
--- OUTSIDE RECORDS SUMMARY | 2025-05-16 14:54 | XMS_ITS | Encounter Summary ---
Author Organization [employer] [facility] Address [address] [place] [address] Phone Care Team Providers Care Wheel Filler Name Role Phone Flower Bliss MD Primary Care Provider [phone] Owen Quan MD Unavailable [phone] Encounter Details Date Type Department Care Team (Late st Contact Info) Description 07/17/2023 Procedure Pass [facility], Ct Scan - [address] [address] Social History Tobacco Use Types Packs/Day Years [...] (Latest Contact Info) Description 06/23/2025 Procedure Pass [facility] Endoscopy Department [address] [place] [address] 06/23/2025 4:00 PM EST Hospital Encounter [facility] Endoscopy Department [address] [place] [address] Catherine Caceres MBBS, MPH [address] [place] [address] YOSHICHRISTOPHER@[facility] 06/23/2025 4:00 PM EST - 06/23/2025 4:45 PM EST Surgery [facility] Endoscopy Department [address] [place] [address] Catherine Caceres MBBS, MPH [address] [place] [address] POLLO@[facility] ESOPHAGOGASTRODUODENOSCOPY 09/08/2025 3:30 PM EST Blood Draw Laboratory Services, [address], 2nd [place] [address] Lance Coles MD, PhD [address] [place], [place] [address] [place] [address] Marcial@[facility] 09/08/2025 4:30 PM EST Office Visit [facility] for [facility], Division of Hematologic Oncology, [address], 7th [place] [address] Lance Coles MD, PhD [address] [place] [address]7 [place] [address] Marcial@[facility] Scheduled Procedures Name Priority Associated Diagnoses Date/Ti me ESOPHAGOGASTRODUODENOSCOPY Esophagitis 06/23/2025 4:00 PM EST documented as of this encounter Visit Diagnoses Not on filedocumented in this encounter Care Teams Wheel Filler Relationship Specialty Start Date End Date Flower Bliss MD [address] [place] [address] PCP - General Internal Medicine 02/21/20 Owen Quan MD [address] [place] [address] Laureano@[email or web address] Medical Oncology 09/24/21 documented as of this encounter Additional Source Comments The information contained in this document represents components of the legal health record. It is not the complete legal health record.[facility]
--- OUTSIDE RECORDS SUMMARY | 2025-05-16 14:54 | XMS_ITS | Encounter Summary ---
Author Organization [employer] [facility] Address [address] [facility] [address] [place] [address] Phone Care Team Providers Care Portable Power Tool Repairer Name Role Phone Unknown, Unknown Primary Care Provider Flower Moncada MD Primary Care Provider [phone] Owen Quan MD Unavailable [phone] Encounter Details Date Type Department Care Team (Late st Contact Info) Description 12/05/2015 Transcribe Orders [address] [address] Jonathan [email or web address] Social History Tobacco Use Types [...] (Latest Contact Info) Description 06/23/2025 Procedure Pass [facility] Endoscopy Department [address] [place] [address] 06/23/2025 4:00 PM EST Hospital Encounter [facility] Endoscopy Department [address] [place] [address] Catherine Caceres MBBS, MPH [address] [place] [address] POLLO@[email or web address] 06/23/2025 4:00 PM EST - 06/23/2025 4:45 PM EST Surgery [facility] Endoscopy Department [address] [place] [address] Catherine Caceres MBBS, MPH [address] [place] [address] YOSHICHRISTOPHER@[email or web address] ESOPHAGOGASTRODUODENOSCOPY 09/08/2025 3:30 PM EST Blood Draw Laboratory Services, [address], 2nd [place] [address] Lance Coles MD, PhD [address] [place] [address]#7 [place] [address] Marcial@[facility] 09/08/2025 4:30 PM EST Office Visit [facility] for [facility], Division of Hematologic Oncology, [address], 7th [place] [address] Lance Coles MD, PhD [address] [place] [address]#7 [place] [address] Marcial@[facility] Scheduled Procedures Name Priority Associated Diagnoses Date/Ti me ESOPHAGOGASTRODUODENOSCOPY Esophagitis 06/23/2025 4:00 PM EST documented as of this encounter Results * XR Chest Outside (No Interpretation) (12/05/2015 12:15 AM EDT) Narrative [facility] - 12/05/2015 11:55 AM EDT This study is for PACS storage only and not for interpretation. us Jairo Griffith MD, MS IMG OUTSIDE IMAGING W/OUT INTERPRETATION Final Result [facility] * XR Chest Outside (No Interpretation) (12/05/2015 12:00 AM EDT) Narrative [facility] - 12/05/2015 11:55 AM EDT This study is for PACS storage only and not for interpretation. us Jairo Griffith MD, MS IMG OUTSIDE IMAGING W/OUT INTERPRETATION Final Result [facility] documented in this encounter Visit Diagnoses Not on filedocumented in this encounter Care Teams Portable Power Tool Repairer Relationship Specialty Start Date End Date Unknown, Unknown, MD PCP - General 08/06/15 02/20/20 Flower Bliss MD [address] [facility] [place] [address] PCP - General Internal Medicine 02/21/20 Owen Quan MD [address] [place] [address] Laureano@[email or web address] Medical Oncology 09/24/21 documented as of this encounter Additional Source Comments The information contained in this document represents components of the legal health record. It is not the complete legal health record.[facility]
--- OUTSIDE RECORDS SUMMARY | 2025-05-16 14:54 | XMS_ITS | Encounter Summary ---
Author Organization [employer] [facility] Address [address] [place] [address] Phone Care Team Providers Care Sports Editor Name Role Phone Flower Bliss MD Primary Care Provider [phone] Owen Quan MD Unavailable [phone] Encounter Details Date Type Department Care Team (Late st Contact Info) Description 01/05/2024 Procedure Pass [facility], Ct Scan - [address] [address] Social History Tobacco Use Types Packs/Day Years [...] (Latest Contact Info) Description 06/23/2025 Procedure Pass [facility] Endoscopy Department [address] [place] [address] 06/23/2025 4:00 PM EST Hospital Encounter [facility] Endoscopy Department [address] [place] [address] Catherine Caceres MBBS, MPH [address] [place] [address] YOSHICHRISTOPHER@[facility] 06/23/2025 4:00 PM EST - 06/23/2025 4:45 PM EST Surgery [facility] Endoscopy Department [address] [place] [address] Catherine Caceres MBBS, MPH [address] [place] [address] POLLO@[facility] ESOPHAGOGASTRODUODENOSCOPY 09/08/2025 3:30 PM EST Blood Draw Laboratory Services, [address] [place] [address], 2[address] [place] [address] Lance Coles MD, PhD [address] [place], [place] [address] [place] [address] Marcial@[facility] 09/08/2025 4:30 PM EST Office Visit [facility] for [facility], Division of Hematologic Oncology, [address] [place] [address], [address] [place] [address] Lance Coles MD, PhD [address] [place] [address]#7 [place] [address] Marcial@[facility] Scheduled Procedures Name Priority Associated Diagnoses Date/Ti me ESOPHAGOGASTRODUODENOSCOPY Esophagitis 06/23/2025 4:00 PM EST documented as of this encounter Visit Diagnoses Not on filedocumented in this encounter Care Teams Sports Editor Relationship Specialty Start Date End Date Flower Bliss MD [address] [facility] [place] [address] PCP - General Internal Medicine 02/21/20 Owen Quan MD [address] [place] [address] Laureano@[email or web address] Medical Oncology 09/24/21 documented as of this encounter Additional Source Comments The information contained in this document represents components of the legal health record. It is not the complete legal health record.[facility]
--- OUTSIDE RECORDS SUMMARY | 2025-05-16 14:54 | XMS_ITS | Encounter Summary ---
Author Organization [employer] [facility] Address [address] [facility] [address] [place] [address] Phone Care Team Providers Care Feed And Farm Management Adviser Name Role Phone Flower Bliss MD Primary Care Provider [phone] Owen Quan MD Unavailable [phone] Encounter Details Date Type Department Care Team (Late st Contact Info) Description 10/09/2022 Procedure Pass [facility], Ct Scan - [address] [address] Social History Tobacco Use Types Packs/Day Years [...] (Latest Contact Info) Description 06/23/2025 Procedure Pass [facility] Endoscopy Department [address] [place] [address] 06/23/2025 4:00 PM EST Hospital Encounter [facility] Endoscopy Department [address] [place] [address] Catherine Caceres MBBS, MPH [address] [place] [address] POLLO@[email or web address] 06/23/2025 4:00 PM EST - 06/23/2025 4:45 PM EST Surgery [facility] Endoscopy Department [address] [place] [address] Catherine Caceres MBBS, MPH [address] [place] [address] POLLO@[facility] ESOPHAGOGASTRODUODENOSCOPY 09/08/2025 3:30 PM EST Blood Draw Laboratory Services, [address], 2nd [place] [address] Lance Coles MD, PhD [address] [place] [address]#[address] [place] [address] Marcial@[facility] 09/08/2025 4:30 PM EST Office Visit [facility] for [facility], Division of Hematologic Oncology, [address], [address] [place] [address] Lance Coles MD, PhD [address] [place] [address]#[address] [place] [address] Marcial@[facility] Scheduled Procedures Name Priority Associated Diagnoses Date/Ti me ESOPHAGOGASTRODUODENOSCOPY Esophagitis 06/23/2025 4:00 PM EST documented as of this encounter Visit Diagnoses Not on filedocumented in this encounter Care Teams Feed And Farm Management Adviser Relationship Specialty Start Date End Date Flower Bliss MD [address] [facility] [place] [address] PCP - General Internal Medicine 02/21/20 Owen Quan MD [address] [place] [address] Lauerano@[facility] Medical Oncology 09/24/21 documented as of this encounter Additional Source Comments The information contained in this document represents components of the legal health record. It is not the complete legal health record.[facility]
--- OUTSIDE RECORDS SUMMARY | 2025-05-16 14:54 | XMS_ITS | Encounter Summary ---
Author Organization [employer] [facility] Address [address] [place] [address] Phone Care Team Providers Care Felt Puller Name Role Phone Flower Bliss MD Primary Care Provider [phone] Owen Quan MD Unavailable [phone] Encounter Details Date Type Department Care Team (Late st Contact Info) Description 09/26/2021 Procedure Pass [facility] Periop [address] [place] [address] Social History Tobacco Use Types Packs/Day Years [...] (Latest Contact Info) Description 06/23/2025 Procedure Pass [facility] Endoscopy Department [address] [place] [address] 06/23/2025 4:00 PM EST Hospital Encounter [facility] Endoscopy Department [address] [place] [address] Catherine Caceres MBBS, MPH [address] [place] [address] POLLO@[facility] 06/23/2025 4:00 PM EST - 06/23/2025 4:45 PM EST Surgery [facility] Endoscopy Department [address] [place] [address] Catherine Caceres MBBS, MPH [address] [place] [address] POLLO@[facility] ESOPHAGOGASTRODUODENOSCOPY 09/08/2025 3:30 PM EST Blood Draw Laboratory Services, [address], 2nd [place] [address] Lance Coles MD, PhD [address] [place] [address]#[address] [place] [address] Marcial@[facility] 09/08/2025 4:30 PM EST Office Visit [facility], Division of Hematologic Oncology, [address], [address] [place] [address] Lance Coles MD, PhD [address] [place] [address]#7 [place] [address] Marcial@[facility] Scheduled Procedures Name Priority Associated Diagnoses Date/Ti me ESOPHAGOGASTRODUODENOSCOPY Esophagitis 06/23/2025 4:00 PM EST documented as of this encounter Visit Diagnoses Not on filedocumented in this encounter Care Teams Felt Puller Relationship Specialty Start Date End Date Flower Bliss MD [address] [facility] [place] [address] PCP - General Internal Medicine 02/21/20 Owen Quan MD [address] [place] [address] Laureano@[email or web address] Medical Oncology 2/8/22 documented as of this encounter Additional Source Comments The information contained in this document represents components of the legal health record. It is not the complete legal health record.[facility]
--- OUTSIDE RECORDS SUMMARY | 2025-05-16 14:55 | XMS_ITS | Encounter Summary ---
Author Organization [employer] [facility] Address [address] [facility] [address] [place] [address] Phone Care Team Providers Care Bottom Bleacher Name Role Phone Flower Bliss MD Primary Care Provider [phone] Owen Quan MD Unavailable [phone] Encounter Details Date Type Department Care Team (Late st Contact Info) Description 09/26/2021 Procedure Pass [facility], Ct Scan - [address] [address] Social History Tobacco Use Types Packs/Day Years [...] [facility] Endoscopy Department [address] [place] [address] 06/23/2025 4:00 PM EST Hospital Encounter [facility] Endoscopy Department [address] [place] [address] Catherine Caceres MBBS, MPH [address] [place] [address] POLLO@[facility] 06/23/2025 4:00 PM EST - 06/23/2025 4:45 PM EST Surgery [facility] Endoscopy Department [address] [place] [address] Catherine Caceres MBBS, MPH [address] [place] [address] POLLO@[facility] ESOPHAGOGASTRODUODENOSCOPY 09/08/2025 3:30 PM EST Blood Draw Laboratory Services, [address], 2nd [place] [address] Lance Coles MD, PhD [address] [place] [address]#7 [place] [address] Marcial@[facility] 09/08/2025 4:30 PM EST Office Visit [facility], Division of Hematologic Oncology, [address], 7th [place] [address] Lance Coles MD, PhD [address] [place] [address]#7 [place] [address] Marcial@[facility] Scheduled Procedures Name Priority Associated Diagnoses Date/Ti me ESOPHAGOGASTRODUODENOSCOPY Esophagitis 06/23/2025 4:00 PM EST documented as of this encounter Visit Diagnoses Not on filedocumented in this encounter Care Teams Bottom Bleacher Relationship Specialty Start Date End Date Flower Bliss MD [address] [facility] [place] [address] PCP - General Internal Medicine 02/21/20 Owen Quan MD [address] [place] [address] Laureano@[facility] Medical Oncology 09/24/21 documented as of this encounter Additional Source Comments The information contained in this document represents components of the legal health record. It is not the complete legal health record.[facility]
== END 2025-05-16 14:40 | disposition home or self-care (01) ==
LOC: HO.HMCC 13:38
PROVIDERS: PCP Internal Medicine; Visit Provider Internal Medicine
DX: E78.5 Hyperlipidemia, unspecified (principal); E11.9 Type 2 diabetes mellitus without complications; Z85.528 Personal history of other malignant neoplasm of kidney

== ENCOUNTER 2025-05-24 12:36 | Outpatient (AMB) | payer BC, SELFPAY ==
--- NOTE | 2025-05-24 13:31 | AM.OFFVISNUR ---
Intake Visit Reasons: Flu shot Allergies [email or web address] (From [employer]) Allergy (Verified 05/16/25 14:13) chest pain Office Procedures Flu Questionnaire Does the patient have a severe egg allergy?: No Does the patient have severe life threatening allergies?: No Does the patient have a fever or illness today?: No Has the patient ever had Guillain-[place] Syndrome?: No Has the patient ever had any past reaction to a flu shot?: No Immunizations Fluarix [id number] (PF) 45 mcg (15 mcg x 3)/0.5 mL IM syringe Performing Provider: Flower Bliss MD Performing Location: [facility] Administered by: EMILIA Lawrence on 05/24/25 13:31 Dose Route Admin Location Dispensed Lot Number Expiration Date [facility] Customer Service Attendant 0.5 mL IM Right Deltoid 0.5 mL [id number] 02/13/26 69679-471-72 [facility] VIS Given Date VIS Provided VIS Publication Date 05/24/25 Single Vaccine 24 Eligibility Eligibility Date Funding Source Not [facility] Eligible 05/24/25 Private Assessment & Plan Assessment & Plan Orders: Orders Influenza [id number] Immunization Today Z23 - Encounter for immunization Coding
== END 2025-05-24 13:32 | disposition home or self-care (01) ==
LOC: HO.HMCC 12:36
PROVIDERS: PCP Internal Medicine; Visit Provider Internal Medicine
DX: Z23 Encounter for immunization (principal)

== ENCOUNTER → 2025-05-24 12:36 | Outpatient (BNVA) | payer BC, SELFPAY | PROVIDERS: PCP Internal Medicine; Visit Provider Internal Medicine | DX: Z23 Encounter for immunization (principal) | CPT/HCPCS: 90471; 90656 ==